=== PATIENT | male | born 1950 | race Caucasian/White ===

== ENCOUNTER → 2020-01-15 17:16 | Outpatient (BNVA) | payer OTHER, SELFPAY | PROVIDERS: PCP Internal Medicine; Visit Provider Urology | DX: R97.20 Elevated prostate specific antigen [PSA] (principal); N40.0 Benign prostatic hyperplasia without lower urinary tract symptoms; N39.9 Disorder of urinary system, unspecified; N40.1 Benign prostatic hyperplasia with lower urinary tract symptoms | CPT/HCPCS: 81001 ==

== ENCOUNTER → 2020-07-20 08:17 | Outpatient (BNVA) | payer OTHER, SELFPAY | PROVIDERS: Visit Provider Urology | DX: R97.20 Elevated prostate specific antigen [PSA] (principal); N40.1 Benign prostatic hyperplasia with lower urinary tract symptoms | CPT/HCPCS: 81001; 84153 ==

== ENCOUNTER 2020-12-02 06:55 | Outpatient (CLI) | payer OTHER, SELFPAY ==
--- NOTE | 2020-12-02 07:00 | USCV_ITS ---
Denis Pennington Age: 70 Gender: M : 1950 Exam Date: 12/02/2020 06:21 Ordering Phys: Karlee Ashraf MD Technologist: Nash Barraza Exam Location: [facility] [place] Indication: PAIN REDNESS TO FEET Risk Factors: Previous Vascular Surgery: RIGHT LEFT BP: 106.0 / 62.00 BP: 111.0/ 65.00 0 0 Waveform Velocity (cm/s) Velocity (cm/s) Waveform Triphasic 112.1 Iliac Prox 131.0 Triphasic Triphasic 107.1 Iliac Mid 130.3 Triphasic Triphasic Iliac Distal Triphasic 87.2 75.2 Triphasic 127.4 AGRICULTURAL EQUIPMENT TEST ENGINEER 96.3 Triphasic Triphasic 80.8 SFA Prox 68.4 Triphasic Triphasic 78.3 SFA Mid 61.4 Triphasic Triphasic 67.7 SFA Dist 147.2 Triphasic Triphasic 53.9 POP 89.3 Triphasic Triphasic 108.1 HAZARDOUS MATERIALS HANDLER 110.4 Triphasic Triphasic 57.5 DPA 59.2 Triphasic 1.4 DORIE 1.0 FINDINGS Normal resting ABIs bilaterally Normal arterial Doppler waveforms. CONCLUSIONS No significant arterial obstruction, based on the above findings Dr Clifton Ayers MD [facility] (Electronically Signed) Final Date: 02 December 2020 12:42 S
== END 2020-12-02 06:56 | disposition home or self-care (01) ==
LOC: US 06:56
PROVIDERS: PCP Family Medicine; Visit Provider Family Medicine
DX: M79.672 Pain in left foot (principal); M79.671 Pain in right foot
CPT/HCPCS: 93925

== ENCOUNTER 2020-12-23 11:52 | Outpatient (RCR) | payer OTHER, SELFPAY | END 2021-01-19 23:59 | disposition home or self-care (01) | LOC: PULRHB 11:52 | PROVIDERS: PCP Family Medicine; Visit Provider Family Medicine | DX: J44.9 Chronic obstructive pulmonary disease, unspecified (principal) | CPT/HCPCS: 94618; G0424 ==

== ENCOUNTER → 2021-01-18 08:11 | Outpatient (BNVA) | payer OTHER, SELFPAY | PROVIDERS: PCP Family Medicine; Visit Provider Urology | DX: R97.20 Elevated prostate specific antigen [PSA] (principal); N40.1 Benign prostatic hyperplasia with lower urinary tract symptoms | CPT/HCPCS: 81003; 84153 ==

== ENCOUNTER 2021-01-20 06:00 | Outpatient (RCR) | payer OTHER, SELFPAY | END 2021-02-18 23:59 | disposition home or self-care (01) | LOC: PULRHB 06:00 | PROVIDERS: PCP Family Medicine; Visit Provider Family Medicine | DX: J44.9 Chronic obstructive pulmonary disease, unspecified (principal) | CPT/HCPCS: G0424 ==

== ENCOUNTER 2021-02-19 06:00 | Outpatient (RCR) | payer OTHER, SELFPAY | END 2021-03-21 23:59 | disposition home or self-care (01) | LOC: PULRHB 06:00 | PROVIDERS: PCP Family Medicine; Visit Provider Family Medicine | DX: J44.9 Chronic obstructive pulmonary disease, unspecified (principal) | CPT/HCPCS: G0424 ==

== ENCOUNTER 2021-03-04 06:00 | Outpatient (RCR) | payer OTHER, SELFPAY | END 2021-03-21 23:59 | disposition home or self-care (01) | LOC: SPT 06:00 | PROVIDERS: PCP Family Medicine; Referring Provider Family Medicine; Visit Provider Family Medicine | DX: M62.81 Muscle weakness (generalized) (principal) | CPT/HCPCS: 97110; 97161 ==

== ENCOUNTER 2021-03-22 06:00 | Outpatient (RCR) | payer OTHER, SELFPAY | END 2021-04-20 23:59 | disposition home or self-care (01) | LOC: PULRHB 06:00 | PROVIDERS: PCP Family Medicine; Visit Provider Family Medicine | DX: J44.9 Chronic obstructive pulmonary disease, unspecified (principal) | CPT/HCPCS: G0424 ==

== ENCOUNTER 2021-03-22 06:00 | Outpatient (RCR) | payer OTHER, SELFPAY | END 2021-04-20 23:59 | disposition home or self-care (01) | LOC: SPT 06:00 | PROVIDERS: PCP Family Medicine; Referring Provider Family Medicine; Visit Provider Family Medicine | DX: M62.81 Muscle weakness (generalized) (principal) | CPT/HCPCS: 97110 ==

== ENCOUNTER 2021-04-04 09:18 | Emergency (ER) | payer OTHER, SELFPAY ==
[2021-04-04 09:33] VITALS: BP 128/87; PULSE 88; RESP 18; TEMP 36.5; O2SAT 89; BMI 29.0
[2021-04-04 09:37] VITALS: BP 128/87; PULSE 94; RESP 18; O2SAT 96
--- NOTE | 2021-04-04 09:41 | XR_ITS ---
WS: [id number] Exam: XR hip LT 2-3V wo/w pel* [id number] Date/Time of Exam: 04/04/2021 9:45 AM Reason For Exam: trauma L hip pain No acute fracture or dislocation. Mild DJD of the joint compartment. Normal soft tissues. XR/XR hip LT 2-3V wo/w pel* [id number] IMPRESSION: 1. Mild DJD. No fracture or dislocation.
--- NOTE | 2021-04-04 10:17 | CT_ITS ---
WS: [id number] NONCONTRAST CT LEFT HIP TECHNIQUE: Noncontrast CT left hip with coronal and sagittal reformatted images. CLINICAL INFORMATION: pain, trauma COMPARISON: None. DLP: 1139.[address] scans at [facility] use at least one of these dose optimization techniques: automat ed exposure control; mA and/or kV adjustment per patient size (includes targeted exams where dose is matched to clinical indication); or iterative reconstruction. FINDINGS: Normal anatomic alignment. No acute fractures. Mild/moderate degenerative arthritis left hip with margarita nt space narrowing. Normal greater and lesser trochanter. Normal pubic rami. Normal acetabulum. Vascu lar calcification. Sigmoid diverticulosis. Fat-containing left inguinal hernia. CT/CT hip LT wo con* [id number] IMPRESSION: 1. Mild to moderate degenerative arthritis left hip with joint space narrowing . 2. No acute fracture or dislocation. 3. Normal visualized left pubic rami.
[2021-04-04] MEDS: ketorolac 30 mg/mL INJ IM (10:25)
--- NOTE | 2021-04-04 10:54 | ED_ITS ---
HPI - Fall General: Chief Complaint: Fall Stated Complaint: Fell, left side hip pain Time Seen by Provider: 04/04/21 09:36 History of Present Illness: HPI Narrative: 70-year-old male presents emergency room with complaint of left hip pain. Yesterday was walking outside he stumbled a hole fell he complained of pain in his left hip since then. He has been ambulatory since then he denies any other pain no pain in the knee or ankle he did not hit his arms did not break his fall with his hands he did not strike his head is no loss conscious he denies any other in use. complaint: fall Onset (ago): day(s) Fall from: standing Fall witnessed: no Place fall occurred: home Loss of consciousness: None Prolonged down time: no Symptoms prior to fall: none Context: tripped/slipped Location of injury: other (Left hip pain) Severity: moderate Quality: aching Associated symptoms-after fall: Denies abdominal pain, chest pain, confusion, difficulty walking, headache(s), hematuria, lightheadedness, neck pain, numbness, short of breath or weakness Review of Systems Const: Denies: fever(s), chills, body aches, change in appetite, fatigue or malaise ENMT: Denies: throat pain, ear or mastoid pain, nasal discharge or nasal congestion Card: Denies: chest pain or lightheadedness Resp: Denies: dyspnea, productive cough or non-productive cough GI: Denies: abdominal pain : Denies: hematuria Musc: Denies: neck pain Skin/Breast: Denies: rash or pruritus Neuro: Denies: headache(s), difficulty walking or confusion [facility] ED PFSH: Medical History BPH loc w urin obs/LUTS Elevated PSA H/O fracture of ankle Hidradenitis suppurativa Surgical History History of mandibular surgery History of surgery on arm Hx of hernia repair S/P appendectomy Family History Father , 77 CAD (coronary artery disease) Mother , 82 Cancer bREAST Social History (Reviewed 03/22/21 @ 10:57 by JOSE GUADALUPE Simmons Smoking and tobacco status: current every day smoker Alcohol intake: never Marital status: / Current occupational status: retired History of recent travel: No Physical Exam Const: COMMON NORMALS: no acute distress GENERAL APPEARANCE: cooperative and comfortable ORIENTATION/CONSCIOUSNESS: Yes awake, Yes oriented to person, Yes oriented to place and Yes oriented to time HENMT: COMMON NORMALS: normocephalic, atraumatic, hearing grossly normal bilaterally and external ears normal HEAD & SCALP: normocephalic and atraumatic EXTERNAL EAR: Yes external ears normal Neck/C-Spine: COMMON NORMALS: full ROM, no lymphadenopathy, supple and no JVD Resp: COMMON NORMALS: normal respiratory effort, No retractions, No use of accessory muscles and clear to auscultation bilaterally AUSCULTATION: clear to auscultation bilaterally Cardio: COMMON NORMALS: no JVD, regular rate, regular rhythm and No murmurs present (Cardio) RATE: regular rate RHYTHM: regular rhythm GI: COMMON NORMALS: Soft to palpation and No hepatosplenomegaly present AUSCULTATION: Yes normoactive bowel sounds PALPATION: Yes Soft to palpation, No Tenderness to palpation present (GI), No Guarding due to palpation present (GI) and Yes No hepatosplenomegaly present Extremity: COMMON NORMALS: normal to inspection, capillary refill normal, no clubbing, cyanosis or edema, no calf tenderness and no pedal edema Neuro: SENSORIUM/ORIENTATION: Yes oriented to person, Yes oriented to place and Yes oriented to time Skin: COMMON NORMALS: no rashes or lesions noted GENERAL SKIN EXAM: no rashes or lesions noted Course Vital Signs: Vital signs: Vital Signs Temperature 97.7 F 04/04/21 09:33 Pulse Rate 79 04/04/21 12:23 Respiratory Rate 12 04/04/21 12:23 Blood Pressure 125/83 04/04/21 12:23 Pulse Oximetry 95 04/04/21 12:23 MDM - Fall MDM Narrative: Medical decision making narrative: No fracture noted on imaging. [place] discharge home use Tylenol or Profen as needed return if is further problems Discharge Plan Discharge Patient Disposition: Home Clinical Impression: Fall, Acute pain of left hip Condition: Stable Prescriptions: No Action Lamisil (Aerosol) 1 % aerosol,spray 1 spray topical DAILY Qty: 125 RF: 3 (DME) Custom Molded Accommodative Orthotics* See Rx Instructions .Route .MEDSUPPLY Qty: 1 RF: 0 saw palmetto 450 mg capsule 450 mg PO DAILY RF: 0 aspirin [Aspir-Low] 81 mg tablet,delayed release (DR/EC) 81 mg PO DAILY RF: 0 cholecalciferol (vitamin D3) 4,000 unit capsule 2,000 unit PO DAILY RF: 0 lisinopril-hydrochlorothiazide 20-12.5 mg tablet 1 tab PO DAILY RF: 0 tamsulosin 0.4 mg capsule 0.4 mg PO DAILY Qty: 90 RF: 3 Discharge Orders: Discharge ED (Routine); Ordered 04/04/21 Ordered By: Alberto Richard Referrals: Karlee Ashraf MD [Primary Care Provider] - Patient Instructions: Opioid Safety Coding Level of Care Code ED Field Service Supervisor for Chg Fwd Exam Comprehensive
[2021-04-04 12:23] VITALS: BP 125/83; PULSE 79; RESP 12; O2SAT 95
== END 2021-04-04 12:24 | disposition home or self-care (01) ==
PROVIDERS: Emergency Provider Family Medicine; PCP Family Medicine
DX: M25.552 Pain in left hip (principal); Z79.82 Long term (current) use of aspirin; F17.210 Nicotine dependence, cigarettes, uncomplicated
CPT/HCPCS: 73502; 73700; 96372; 99283; J1885

== ENCOUNTER 2021-04-21 06:00 | Outpatient (RCR) | payer OTHER, SELFPAY | END 2021-05-21 23:59 | disposition home or self-care (01) | LOC: SPT 06:00 | PROVIDERS: PCP Family Medicine; Referring Provider Family Medicine; Visit Provider Family Medicine | DX: M62.81 Muscle weakness (generalized) (principal) | CPT/HCPCS: 97110; 97164 ==

== ENCOUNTER → 2021-07-21 09:01 | Outpatient (BNVA) | payer OTHER, SELFPAY | PROVIDERS: PCP Family Medicine; Visit Provider Urology | DX: N40.1 Benign prostatic hyperplasia with lower urinary tract symptoms (principal); R97.20 Elevated prostate specific antigen [PSA] | CPT/HCPCS: 81003; 84153 ==

== ENCOUNTER 2022-01-04 12:15 | Emergency (ER) | payer OTHER, MEDICARE, SELFPAY ==
[2022-01-04 12:25] VITALS: BP 142/73; PULSE 83; RESP 18; TEMP 36.8; O2SAT 91; BMI 29.8
--- NOTE | 2022-01-04 12:32 | ECG_ITS ---
[facility] Test Date: 2022-01-04 Pat Name: Denis Pennington Department: Room: Gender: Male Director Global Sales: : 1950 Requested By: Triston Bravo Order Number: [id number] Reading MD: Donnie Glover M.D. Measurements Intervals [place] Rate: 72 P: 65 ID: [id number] QRS: 90 QRSD: 89 T: 84 QT: 369 QTc: 406 Interpretive Statements SINUS RHYTHM WITH MARKED SINUS ARRHYTHMIA POSSIBLE RIGHT VENTRICULAR CONDUCTION DELAY [RSR (QR) IN V1/V2] NONSPECIFIC T-WAVE ABNORMALITY Compared to ECG 01/10/2018 10:31:46 Possible ischemia no longer present T-wave abnormality still present Electronically Signed On 01-04-2022 18:42:37 CDT by Donnie Glover M.D. [email or web address]
--- NOTE | 2022-01-04 12:40 | ED_ITS ---
HPI - General Adult General: Chief complaint: Shortness of Breath/Dyspnea Stated complaint: SOB, low ox Time Seen by Provider: 01/04/22 12:32 History of Present Illness: Patient is a 71-year-old male with history of COPD on 2.5L oxygen as needed, BPH, hyperlipidemia who presents the emergency room for evaluation of increased oxygen requirements and wheezing x3 days. Patient tells me that he has been using intermittently his albuterol inhaler. Patient tells me that he has had a mild cough for the last few days and I think I am coming down with a viral infection. Patient denies any chest pain, nausea/vomiting, fever/chills, persistent productive cough, diarrhea, melena hematochezia. Patient denies any muscle ache, malaise, generalized weakness. Patient tells me that he has been inconsistent with his use of albuterol inhaler since he does not remember where he loses it. Patient went to see at the [place] [facility] today was noted to satting at 91 to 92% on room air was told to come to the emergency room for evaluation of possible pneumonia and worsening COPD exacerbation. Onset: 3 days ago Duration:3 days Location:home Severity:moderate Associated symptoms: Reports dyspnea; Deny chest pain, nausea, rash, palpitations or vomiting Review of Systems Const: Denies: fever(s) or chills Eyes: Denies: change in vision ENMT: Denies: mouth pain Card: Denies: chest pain or palpitations Resp: Reports: dyspnea and other (+wheezing); Denies: non-productive cough GI: Denies: abdominal pain, nausea, vomiting or diarrhea : Denies: dysuria Musc: Denies: extremity pain Skin/Breast: Denies: rash or new lesions Neuro: Denies: weakness in extremities Psych: Reports: other (Normal mood) Sergei/Lymph: Denies: easy bruising PFSH ED PFSH: Medical History BPH loc w urin obs/LUTS Elevated PSA H/O fracture of ankle Hidradenitis suppurativa Surgical History History of mandibular surgery History of surgery on arm Hx of hernia repair S/P appendectomy Family History Father , 77 CAD (coronary artery disease) Mother , 82 Cancer bREAST Social History Smoking and tobacco status: current every day smoker Alcohol intake: never Marital status: / Current occupational status: retired History of recent travel: No Physical Exam Const: COMMON NORMALS: alert HENMT: COMMON NORMALS: atraumatic HEAD & SCALP: atraumatic MOUTH: moist mucous membranes not abnormal Eye: COMMON NORMALS: EOMs intact bilaterally and conjunctivae normal CONJUNCTIVA: Yes conjunctivae normal Neck/C-Spine: COMMON NORMALS: full ROM and supple Resp: COMMON NORMALS: normal respiratory effort OTHER: +b/l expiratory wheezing, no increased work of breathing Cardio: COMMON NORMALS: regular rate RATE: regular rate GI: COMMON NORMALS: Soft to palpation and non-tender PALPATION: Yes Soft to palpation Extremity: COMMON NORMALS: full ROM Neuro: SENSORIUM/ORIENTATION: Yes alert MOTOR EXAM: No Abnormal motor strength present and Other motor observations present (no focal motor deficits) Psych: COMMON NORMALS: speech normal SPEECH: Yes normal speech MOOD & AFFECT: Yes euthymic mood Course Vital Signs: Vital signs: Vital Signs Temperature 98.0 F 01/04/22 16:45 Pulse Rate 73 01/04/22 16:45 Respiratory Rate 16 01/04/22 16:45 Blood Pressure 153/79 01/04/22 16:45 Pulse Oximetry 95 01/04/22 17:11 [facility] - General Adult Medical Decision Making 71-year-old male with history of COPD on 2.5L oxygen as needed presenting to the emergency room with wheezing and dyspnea x3 days in setting of cough. Patient no longer coughs currently. On exam, patient is noted to have O2 sat of 91 to 92% on room with moderate expiratory wheezes. Patient has no signs of increased work of breathing. Patient is placed on 2 L of oxygen with improvement in O2 sat to 94 to 95%. Patient received DuoNeb and steroids in the emergency room with significant improvement in wheezing symptoms. Patient now satting at 95% at 2L which is his baseline. Lab work-up including troponin x2 with delta <5 and EKG within normal limit. X-ray chest not showing signs of focal pneumonia. Dimer within normal limit. BNP within normal limit. Suspect the patient's symptoms are related to COPD exacerbation at this time. I have offered patient admission for further treatment versus discharge for close outpatient follow-up. Patient elects to go home today with close patient follow-up. Given patient strict return precaution for any signs of worsening wheezing, dyspnea, fever/chills, any new concerning complaints. Doubt ACS/PE or other emergent causes of dyspnea. No suspicion for aortic dissection given no widened mediastinum, 2+ upper extremity pulses, or tearing pain. No suspicion for PE given no pleuritic chest pain, recent immobilization or surgery hemoptysis, or other VTE risk factors. EKG is non-ischemic. XR normal. I have given patient follow up with our patient case manager to be seen by our outpatient PCP for further evaluation of symptoms. Patient aware of a call from our patient case manager to schedule for appointment(s) and verbalizes understanding of the importance of following up. I have given patient strict return precaution for any drops in the pulse ox to less than 90% while on 2L at home. Rx: albuterol PRN wheezing, prednisone 50mg x 5 days for COPD exacerbation Disposition: Discharge. Patient counseled regarding diagnostic impression, treatment plan. Patient given ED strict return precautions to return for continuation, worsening, or development of new symptoms. Instructed to f/u w/ PCP regarding symptoms today. Patient verbalized understanding. Lab Data : 01/04/22 12:55 01/04/22 12:55 Radiology Impressions Chest X-Ray 01/04/22 15:43 IMPRESSION: No acute findings. Laboratory Results WBC 9.0 10^3/uL (4.0-10.0) 01/04/22 12:55 RBC 5.54 10^6/uL (4.1-5.3) H 01/04/22 12:55 Hgb 16.5 g/dL (11.7-16.6) 01/04/22 12:55 Hct 52.5 % (42.0-52.0) H 01/04/22 12:55 MCV 94.8 fl (80-94) H 01/04/22 12:55 MCH 29.8 pg (28.0-34.0) 01/04/22 12:55 MCHC 31.4 g/dL (30.0-36.0) 01/04/22 12:55 RDW 13.6 % (12.1-15.1) 01/04/22 12:55 Plt Count 263 10^3/cmm (130-400) 01/04/22 12:55 MPV 10.6 fL (7.4-10.4) H 01/04/22 12:55 Neut % (Auto) 68.8 % 01/04/22 12:55 Lymph % (Auto) 18.8 % 01/04/22 12:55 [place] % (Auto) 9.3 % 01/04/22 12:55 Eos % (Auto) 2.1 % 01/04/22 12:55 Baso % (Auto) 0.8 % 01/04/22 12:55 Neut # (Auto) 6.20 10^3/uL (1.8-7.7) 01/04/22 12:55 Lymph # (Auto) 1.7 10^3/uL (0.8-4.8) 01/04/22 12:55 [place] # (Auto) 0.8 10^3/uL (0.2-0.9) 01/04/22 12:55 Eos # (Auto) 0.2 10^3/uL (0.0-0.8) 01/04/22 12:55 Baso # (Auto) 0.1 10^3/uL (0.0-0.1) 01/04/22 12:55 Nucleated RBC % (auto) 0 % 01/04/22 12: Nucleated RBCs # 0.0 /100WBC 01/04/22 12:55 D-Dimer 0.55 ug/mIFEU (0-0.59) 01/04/22 12:55 Sodium 138 mmol/L (136-145) 01/04/22 12:55 Potassium 4.4 mmol/L (3.5-5.1) 01/04/22 12:55 Chloride 96 mmol/L (98-107) L 01/04/22 12:55 Carbon Dioxide 34 mmol/L (22-29) H 01/04/22 12:55 Anion Gap 12.4 (5-19) 01/04/22 12:55 BUN 19 mg/dL (8-23) 01/04/22 12:55 Creatinine 0.8 mg/dL (0.7-1.2) 01/04/22 12:55 GFR Calculation Not Reportable 01/04/22 12:55 Glucose 156 mg/dL (65-115) H 01/04/22 12:55 Calculated Osmolality 291 mOsm/kg (285-295) 01/04/22 12:55 Calcium 9.7 mg/dL (8.5-10.5) 01/04/22 12:55 Total Bilirubin 0.4 mg/dL (0.15-1.2) 01/04/22 12:55 AST 18 U/L (0-40) 01/04/22 12:55 ALT 20 U/L (0-41) 01/04/22 12:55 Alkaline Phosphatase 70 IU/L (40-130) 01/04/22 12:55 Troponin T Baseline 25 ng/L (0-15) H 01/04/22 12:55 Troponin T 120 Minute 25.98 ng/L (0-15) H 01/04/22 14:43 Delta Troponin T 0.98 ABS# (0-10) 01/04/22 14:43 NT-Pro-B Natriuret Pep 77 pg/mL (0-125) 01/04/22 12:55 Total Protein 6.5 g/dL (6.6-8.7) L 01/04/22 12:55 Albumin 4.2 g/dL (3.5-5.2) 01/04/22 12:55 Globulin 2.3 g/dL (1.3-4.6) 01/04/22 12:55 Lipase 50 U/L (13-60) 01/04/22 12:55 Nasal Influ A H1 2009 PCR Not detected (NOT DETECT) 01/04/22 12:55 Coronavirus 229E (PCR) Not detected (NOT DETECT) 01/04/22 12:55 Influenza A (H1) PCR Not detected (NOT DETECT) 01/04/22 12:55 Influenza A (H3) PCR Not detected (NOT DETECT) 01/04/22 12:55 Influenza Type A Ag Cancelled 01/04/22 12:55 Influenza Type A (PCR) Not detected (NOT DETECT) 01/04/22 12:55 Influenza Type B Ag Cancelled 01/04/22 12:55 Influenza Type B (PCR) Not detected (NOT DETECT) 01/04/22 12:55 SARS-CoV-2 (PCR) Not detected (NOT DETECT) 01/04/22 12:55 Imaging Data Other Imaging: Radiologist's impression: Launch?Image PrintToPeerPrairie [facility] [address] [place] [address] XRay Report Signed Patient: Denis Pennington Unit #: [id number] : 1950 Age/Sex: 71 / M ADM Date: 01/04/22 Loc: ER Room/Bed: Attending Dr: Ordering Provider/Ordering MD: Triston Bravo MD Date of Service: 01/04/22 Procedure(s): XR chest 2V* [id number] Accession Number(s): [id number] Report Number: [id number] PROCEDURE INFORMATION: Exam: XR Chest Exam date and time: 01/04/2022 3:43 PM Age: 71 years old Clinical indication: Cough TECHNIQUE: Imaging protocol: XR of the chest. Views: 2 views. COMPARISON: CR Chest 1 [place] [id number] 01/10/2018 10:22 AM FINDINGS: Lungs: Calcified granulomas in the right lung. No consolidation. Pleural spaces: No pleural effusion. No pneumothorax. Heart/Mediastinum: No cardiomegaly. Bones/joints: Visualized osseous structures are intact. XR/XR chest 2V* [id number] IMPRESSION: No acute findings. ? Dictated By: Andrae Gary DO Signed By: Andrae Gary DO Signed Date/Time: 01/04/22 1700 DD/ 1543 Discharge Plan Discharge Patient Disposition: Home Clinical Impression: COPD exacerbation, Wheezing Condition: Stable Prescriptions: New acetaminophen 500 mg tablet 500 mg PO Q6H PRN (Reason: pain) 5 Days Qty: 20 0RF albuterol sulfate 90 mcg/actuation HFA aerosol inhaler 2 inh inhalation Q4H PRN (Reason: shortness of breath or wheezing) 5 Days Qty: 6.7 0RF prednisone 50 mg tablet 50 mg PO DAILY 5 Days 0RF No Action (DME) Custom Molded Accommodative Orthotics* See Rx Instructions .Route .MEDSUPPLY Qty: 1 0RF Rx Instructions: As directed J P & O (DME) Custom Molded Orthotics See Rx Instructions .Route .MEDSUPPLY Qty: 1 0RF Rx Instructions: As directed by GE&O lisinopril-hydrochlorothiazide 20-12.5 mg tablet 1 tab PO QAM 0RF (DME) Custom Molded Accommodative Orthotics See Rx Instructions .Route .MEDSUPPLY Qty: 1 0RF Rx Instructions: As directed J P & O artificial tears solution Drops 1 drp OPHTHALMIC (EYE) BID PRN (Reason: Dry Eye(S)) 0RF Aspir-81 81 mg Tablet,Delayed Release (Dr/Ec) 81 mg PO QAM 0RF Tylenol Ex Str Rapid Release 500 mg Tablet 500 mg PO QID PRN (Reason: Pain) 0RF Flonase 50 mcg/actuation [place],Suspension 1 spray INTRANASAL DAILY 0RF Rx Instructions: administer into each nostril Claritin 10 mg Tablet 10 mg PO DAILY PRN (Reason: Allergy Symptoms) 0RF chlorhexidine gluconate 4 % Packet See Rx Instructions .ROUTE .COMPLEX 0RF Rx Instructions: APPLY topically DAILY DIRECTED TO REDUCE SKIN BACTERIA Vitamin D3 50 mcg (2,000 unit) Tablet 50 mcg PO QAM 0RF ipratropium-albuterol 20-100 mcg/actuation Mist 1 puff INHALATION QID PRN (Reason: Shortness Of Breath) 0RF Rx Instructions: space evenly during waking hours mometasone 100 mcg/actuation Hfa Aerosol Inhaler 1 puff INHALATION BID PRN (Reason: UNKNOWN) 0RF Prostastream 2 cap PO QAM 0RF tamsulosin 0.4 mg capsule 0.4 mg PO BEDTIME 0RF Discharge Orders: Discharge ED (Routine); Ordered 01/04/22 Ordered By: Triston Bravo Referrals: Karlee Ashraf MD [Primary Care Provider] - Discharge Diet: Advance as tolerated Discharge Activity: Increase activity as tolerated Patient Instructions: Emphysema (ED) Activity Restrictions/Additional Instructions: Come back to the emergency room if your symptoms worsen, have any shortness of breath, fever/chills, dehydration, inability tolerate food or drinks, any difficulty breathing, or any new or concerning complaints. Coding Level of Care Code ED [place] for Rodog Fwd Exam Comprehensive
[2022-01-04] MEDS: ipratropium-albuterol 3 mL Neb INHALATION ×3 (12:50→12:53)
[2022-01-04 12:53] VITALS: PULSE 84; RESP 16; O2SAT 94
[2022-01-04 13:19] VITALS: BP 156/81; PULSE 80; RESP 20; TEMP 36.8; O2SAT 92
[2022-01-04 13:40] LABS: Basophils # 0.1 10^3/uL (0.0-0.1); Basophils % 0.8 %; Eosinophils # 0.2 10^3/uL (0.0-0.8); Eosinophils % 2.1 %; Hematocrit 52.5 % (42.0-52.0); Hemoglobin 16.5 g/dL (11.7-16.6); Lymphocytes # 1.7 10^3/uL (0.8-4.8); Lymphocytes % 18.8 %; Mean Corpuscular HGB Conc 31.4 g/dL (30.0-36.0); Mean Corpuscular Hemoglobin 29.8 pg (28.0-34.0); Mean Corpuscular Volume 94.8 fl (80-94); Mean Platelet Volume 10.6 fL (7.4-10.4); Monocytes # 0.8 10^3/uL (0.2-0.9); Monocytes % 9.3 %; Neutrophils % 68.8 %; Nucleated Red Blood Cells % 0 %; Platelet Count 263 10^3/cmm (130-400); Red Blood Count 5.54 10^6/uL (4.1-5.3); Red Cell Distribution Width 13.6 % (12.1-15.1)
[2022-01-04 14:07] LABS: Alanine Aminotransferase 20 U/L (0-41); Albumin Level 4.2 g/dL (3.5-5.2); Alkaline Phosphatase 70 IU/L (40-130); Anion Gap 12.4 (5-19); Aspartate Amino Transferase 18 U/L (0-40); Blood Urea Nitrogen 19 mg/dL (8-23); Calcium 9.7 mg/dL (8.5-10.5); Carbon Dioxide 34 mmol/L (22-29); Chloride 96 mmol/L (98-107); Globulin 2.3 g/dL (1.3-4.6); Glucose 156 mg/dL (65-115); Lipase 50 U/L (13-60); NT Pro B Type Natriuretic Pept 77 pg/mL (0-125); Osmolality Calculated 291 mOsm/kg (285-295); Potassium 4.4 mmol/L (3.5-5.1); Sodium 138 mmol/L (136-145); Total Bilirubin 0.4 mg/dL (0.15-1.2); Total Protein 6.5 g/dL (6.6-8.7); Troponin(5th) Baseline 25 ng/L (0-15)
[2022-01-04 15:18] LABS: Troponin 5 2HR 25.98 ng/L (0-15)
[2022-01-04 15:19] LABS: Troponin 5 2HR Delta 0.98 ABS# (0-10)
--- NOTE | 2022-01-04 15:25 | PC.PHAR ---
PT STATES HE TAKES CARE OF HIS OWN MEDICATIONS-PT STATES HE HASNT TAKEN GLIPIZIDE 5MG BID FOR 3 MONTHS [facility]ICATION [facility]
--- NOTE | 2022-01-04 15:43 | XRR_ITS ---
PROCEDURE INFORMATION: Exam: XR Chest Exam date and time: 01/04/2022 3:43 PM Age: 71 years old Clinical indication: Cough TECHNIQUE: Imaging protocol: XR of the chest. Views: 2 views. COMPARISON: CR Chest 1 [place] [id number] 01/10/2018 10:22 AM FINDINGS: Lungs: Calcified granulomas in the right lung. No consolidation. Pleural spaces: No pleural effusion. No pneumothorax. Heart/Mediastinum: No cardiomegaly. Bones/joints: Visualized osseous structures are intact. XR/XR chest 2V* [id number] IMPRESSION: No acute findings.
[2022-01-04 15:59] LABS: Adenovirus Not Detected (NOT DETECT); Chlamydia Pneumoniae Not Detected (NOT DETECT); Coronavirus 229E,HKU1,NL63,OC4 Not Detected (NOT DETECT); Human Metapneumovirus Not Detected (NOT DETECT); Human Rhinovirus/Enterovirus Not Detected (NOT DETECT); Influenza A Not Detected (NOT DETECT); Influenza A H1 Not Detected (NOT DETECT); Influenza A H1-2009 Not Detected (NOT DETECT); Influenza A H3 Not Detected (NOT DETECT); Influenza B Not Detected (NOT DETECT); Mycoplasma Pneumoniae Not Detected (NOT DETECT); Parainfluenza Virus Type 1 Not Detected (NOT DETECT); Parainfluenza Virus Type 2 Not Detected (NOT DETECT); Parainfluenza Virus Type 3 Not Detected (NOT DETECT); Parainfluenza Virus Type 4 Not Detected (NOT DETECT); Respiratory Syncytial Virus A Not Detected (NOT DETECT); Respiratory Syncytial Virus B Not Detected (NOT DETECT); SARS-COV-2 Not Detected (NOT DETECT)
[2022-01-04 16:08] LABS: Influenza A Not Detected (NOT DETECT); Influenza A H1 Not Detected (NOT DETECT); Influenza A H1-2009 Not Detected (NOT DETECT); Influenza A H3 Not Detected (NOT DETECT); Influenza B Not Detected (NOT DETECT); Results from Genmark
[2022-01-04 16:34] LABS: D Dimer 0.55 ug/mIFEU (0-0.59)
[2022-01-04 16:45] VITALS: BP 153/79; PULSE 73; RESP 16; TEMP 36.7; O2SAT 90
[2022-01-04 17:03] VITALS: O2SAT 95
[2022-01-04 17:11] VITALS: O2SAT 95
--- NOTE | 2022-01-04 18:32 | ECG_ITS ---
[facility] Test Date: 2022-01-04 Pat Name: Denis Pennington Department: Room: Gender: Male Director Consumer Affairs: : 1950 Requested By: Triston Bravo Order Number: [id number] Laurence MD: Donnie Glover M.D. Measurements Intervals [place] Rate: 57 P: 59 MD: 186 QRS: 72 QRSD: 82 T: 81 QT: 354 QTc: 346 Interpretive Statements SINUS BRADYCARDIA WITH OCCASIONAL SUPRAVENTRICULAR PREMATURE COMPLEXES MODERATE T-WAVE ABNORMALITY, CONSIDER LATERAL ISCHEMIA [-0.1+ mV T-WAVE IN I/aVL/V5/V6] MODERATE T-WAVE ABNORMALITY, CONSIDER INFERIOR ISCHEMIA [-0.1+ mV T-WAVE IN II/aVF] Compared to ECG 01/04/2022 12:04:25 Possible ischemia now present Sinus rhythm no longer present Sinus arrhythmia no longer present T-wave abnormality still present Electronically Signed On 01-04-2022 18:51:43 CDT by Donnie Glover M.D. [id number]
--- NOTE | 2022-01-05 12:37 | DCPLANNER ---
care process manager had message to speak with patient about scheduling a follow up appointment with primary care physician. care process manager spoke with patient, he stated that he would schedule an appointment if he needed one.
== END 2022-01-04 17:10 | disposition home or self-care (01) ==
PROVIDERS: Emergency Provider Emergency Medicine; PCP Family Medicine
DX: J44.1 Chronic obstructive pulmonary disease with (acute) exacerbation (principal); Z79.82 Long term (current) use of aspirin; F17.210 Nicotine dependence, cigarettes, uncomplicated; Z20.822 Contact with and (suspected) exposure to COVID-19
CPT/HCPCS: 36415; 71046; 80053; 83690; 83880; 84484; 85025; 85378; 87631; 87635; 93005; 94640; 96374; 99284; J2930

== ENCOUNTER 2022-04-18 09:24 | Outpatient (CLI) | payer OTHER, MEDICARE, SELFPAY | END 2022-04-18 09:25 | disposition home or self-care (01) | LOC: LAB 09:26 | PROVIDERS: PCP Family Medicine; Visit Provider Urology | DX: R97.20 Elevated prostate specific antigen [PSA] (principal); N40.1 Benign prostatic hyperplasia with lower urinary tract symptoms | CPT/HCPCS: 51798; 81003; 84153; 99213 ==

== ENCOUNTER 2022-10-18 12:34 | Outpatient (CLI) | payer OTHER, SELFPAY ==
[2022-10-18 13:25] LABS: Prostate Specific AG Urology 3.81 ng/mL (0-4)
== END 2022-10-18 12:35 | disposition home or self-care (01) ==
LOC: LAB 12:38
PROVIDERS: PCP Family Medicine; Visit Provider Urology
DX: R97.20 Elevated prostate specific antigen [PSA] (principal)
CPT/HCPCS: 84153

== ENCOUNTER → 2022-10-19 10:26 | Outpatient (BNVA) | payer OTHER, SELFPAY | PROVIDERS: PCP Family Medicine; Visit Provider Urology | DX: N40.1 Benign prostatic hyperplasia with lower urinary tract symptoms (principal); R97.20 Elevated prostate specific antigen [PSA] | CPT/HCPCS: 51798; 81003; 99213 ==

== ENCOUNTER → 2022-11-22 10:21 | Outpatient (BNVA) | payer OTHER, SELFPAY | PROVIDERS: PCP Family Medicine; Referring Provider Nurse Practitioner; Visit Provider Podiatrist Foot & Ankle Surgery | DX: M21.41 Flat foot [pes planus] (acquired), right foot (principal); M21.42 Flat foot [pes planus] (acquired), left foot; B35.3 Tinea pedis | CPT/HCPCS: 99213 ==

== ENCOUNTER 2022-12-07 20:00 | Emergency (ER) | payer OTHER, SELFPAY ==
[2022-12-07 20:01] VITALS: BP 129/71; PULSE 103; RESP 18; TEMP 37.2; O2SAT 96; BMI 28.2
--- NOTE | 2022-12-07 20:05 | W.ED.NAVMDI ---
HPI - Nausea/Vomiting/Diarrhea General: Chief complaint: Nausea/Vomiting/Diarrhea Stated complaint: VOMITING Time Seen by Provider: 12/07/22 20:05 History of Present Illness: 72-year-old gentleman presenting to the emergency department for chills with vomiting and abdominal discomfort. Reports being at his baseline health and was in [place] earlier today. When he came home he felt generally unwell and about 3:00 started having chills. He has had nonbilious nonbloody emesis. Intensity symptoms is moderate. Course has persisted. No other specific changes in health, exacerbating, or alleviating factors identified. Onset (ago): hour(s) Description of vomiting: watery Associated nausea: Yes Associated abdominal pain: Yes Location of pain: Diffuse Severity: moderate Quality: aching Exacerbating factors: none Relieving factors: none Associated symtoms: Reports malaise, nausea and other Review of Systems General: Reports: 10 or more systems reviewed and unremarkable except in HPI and below Const: Reports: malaise GI: Reports: nausea PFSH ED PFSH: Medical History BPH loc w urin obs/LUTS Elevated PSA H/O fracture of ankle Hidradenitis suppurativa Surgical History History of mandibular surgery History of surgery on arm Hx of hernia repair S/P appendectomy Family History Father , 77 CAD (coronary artery disease) Mother , 82 Cancer bREAST Social History Smoking and tobacco status: current every day smoker Alcohol intake: never Marital status: / Current occupational status: retired Physical Exam Const: COMMON NORMALS: alert GENERAL APPEARANCE: cooperative, well developed and ill appearing HENMT: COMMON NORMALS: normocephalic and atraumatic HEAD & SCALP: normocephalic and atraumatic THROAT: posterior oropharynx normal Eye: COMMON NORMALS: conjunctivae normal CONJUNCTIVA: Yes conjunctivae normal SCLERA: sclerae normal Neck/C-Spine: COMMON NORMALS: supple GENERAL: Yes trachea midline Resp: COMMON NORMALS: clear to auscultation bilaterally EFFORT & INSPECTION: Yes able to speak in complete sentences AUSCULTATION: clear to auscultation bilaterally Cardio: COMMON NORMALS: regular rate and regular rhythm RATE: regular rate RHYTHM: regular rhythm GI: COMMON NORMALS: Soft to palpation PALPATION: Yes Soft to palpation, Yes Tenderness to palpation present (GI), No Guarding due to palpation present (GI) and No Rigid due to palpation Extremity: GENERAL: Yes normal exam except as noted and No edema Neuro: COMMON NORMALS: moves all extremities SENSORIUM/ORIENTATION: Yes alert and No Orientation impaired Psych: COMMON NORMALS: mental status grossly normal and Normal thought process present THOUGHT PROCESS: Normal thought process present Course Vital Signs: Vital signs: Vital Signs Temperature 98.9 F 12/07/22 20:01 Pulse Rate 88 12/08/22 00:18 Respiratory Rate 16 12/08/22 00:18 Blood Pressure 120/65 12/08/22 00:18 Pulse Oximetry 99 12/08/22 00:18 Oxygen Delivery Me thod 12/07/22 22:28 MDM - Nausea/Vomiting/Diarrhea Medical Decision Making 72-year-old gentleman presenting with generalized illness. He endorses abdominal symptoms and chills. Mildly ill on appearance with tachycardia, no focal neurologic findings, no evidence of acute surgical abdomen. EKG with evidence of sinus rhythm at a moderate block, no STEMI. Labs with leukocytosis, normal hemoglobin and platelet count. Metabolic panel without significant derangement. Negative range 2-hour delta troponin. No UTI. Negative viral rapid testing.. Chest x-ray with no lobar consolidation or pneumothorax. CT demonstrates diverticulitis. Incidental findings discussed. Patient treated with antibiotics and antiemetic. He feels significantly improved upon assessment. I offered admission to the patient declined. The results of ED evaluation were discussed with the patient including prescriptions and/or symptomatic cares (if applicable) including appropriate and responsible use, followup plan, and return precautions. The patient verbalized understanding and felt safe for discharge. Medical Records I reviewed the patient's medical records. Lab Data I reviewed the patient's lab results. 12/07/22 20:11 12/07/22 20:11 Radiology Impressions Abdomen/Pelvis CT 12/07/22 20:36 IMPRESSION: 1. Mild acute diverticulitis in the mid sigmoid colon. 2. 2 mm left renal calculus. 3. 3 mm left pulmonary nodule. For patients at low risk (minimal or absent history of smoking and of other known risk factors), no routine follow-up is indicated. For patients at high risk (history of smoking or of other known risk factors), consider optional CT Chest at 12 months. (Reference: Syeda) References: Syeda Houston et al. Guidelines for Management of Incidental Pulmonary Nodules Detected on CT Images: From the Fleischner Society 2017. Radiology. 2017;284(1):228-243. COMMENTS: Consistent with the [place]'s Incidental Findings Committee white paper (J Am Jonathno Radiol 2018): Any incidental renal lesion less than 1 cm or classified as too small to characterize, or any incidental cystic renal lesion characterized as simple-appearing, is likely benign. No follow-up imaging is recommended for these lesions per consensus recommendations based on imaging criteria. Chest X-Ray 12/07/22 21:34 IMPRESSION: No acute findings. Laboratory Results WBC 14.7 10^3/uL (4.0-10.0) H 12/07/22 20:11 RBC 4.92 10^6/uL (4.1-5.3) 12/07/22 20:11 Hgb 14.7 g/dL (11.7-16.6) 12/07/22 20:11 Hct 47.0 % (42.0-52.0) 12/07/22 20:11 MCV 95.5 fl (80-94) H 12/07/22 20:11 MCH 29.9 pg (28.0-34.0) 12/07/22 20:11 MCHC 31.3 g/dL (30.0-36.0) 12/07/22 20:11 RDW 14.4 % (12.1-15.1) 12/07/22 20:11 Plt Count 252 10^3/cmm (130-400) 12/07/22 20:11 MPV 10.1 fL (7.4-10.4) 12/07/22 20:11 Neut % (Auto) 89.4 % 12/07/22 20:11 Lymph % (Auto) 3.7 % 12/07/22 20:11 [place] % (Auto) 5.1 % 12/07/22 20:11 Eos % (Auto) 0.8 % 12/07/22 20:11 Baso % (Auto) 0.5 % 12/07/22 20:11 Neut # (Auto) 13.11 10^3/uL (1.8-7.7) H 12/07/22 20:11 Lymph # (Auto) 0.5 10^3/uL (0.8-4.8) L 12/07/22 20:11 [place] # (Auto) 0.8 10^3/uL (0.2-0.9) 12/07/22 20:11 Eos # (Auto) 0.1 10^3/uL (0.0-0.8) 12/07/22 20:11 Baso # (Auto) 0.1 10^3/uL (0.0-0.1) 12/07/22 20:11 Nucleated RBC % (auto) 0 % 12/07/22 20:11 Nucleated RBCs # 0.0 /100WBC 12/07/22 20:11 Sodium 141 mmol/L (136-145) 12/07/22 20:11 Potassium 4.2 mmol/L (3.5-5.1) 12/07/22 20:11 Chloride 100 mmol/L (98-107) 12/07/22 20:11 Carbon Dioxide 34 mmol/L (22-29) H 12/07/22 20:11 Anion Gap 11.2 (5-19) 12/07/22 20:11 BUN 24 mg/dL (8-23) H 12/07/22 20:11 Creatinine 0.9 mg/dL (0.7-1.2) 12/07/22 20:11 GFR Calculation Not Reportable 12/07/22 20:11 Glucose 102 mg/dL (65-115) 12/07/22 20:11 Calculated Osmolality 296 mOsm/kg (285-295) H 12/07/22 20:11 Lactate 1.4 mmol/L (0.5-2.2) 12/07/22 20:51 Calcium 9.3 mg/dL (8.5-10.5) 12/07/22 20:11 Total Bilirubin 0.4 mg/dL (0.15-1.2) 12/07/22 20:11 AST 24 U/L (0-40) 12/07/22 20:11 ALT 22 U/L (0-41) 12/07/22 20:11 Alkaline Phosphatase 51 U/L (40-130) 12/07/22 20:11 Troponin T Baseline 30 ng/L (0-15) H 12/07/22 20:11 Troponin T 120 Minute 27.20 ng/L (0-15) H 12/07/22 22:17 Delta Troponin T -2.80 ABS# (0-10) L 12/07/22 22:17 Total Protein 6.3 g/dL (6.6-8.7) L 12/07/22 20:11 Albumin 3.9 g/dL (3.5-5.2) 12/07/22 20:11 Globulin 2.4 g/dL (1.3-4.6) 12/07/22 20:11 Urine Color Yellow (Yellow) 12/07/22 20:11 Urine Appearance Clear (CLEAR) 12/07/22 20:11 Urine pH 5 (5-7) 12/07/22 20:11 Ur Specific [place] 1.020 (1.005-1.030) 12/07/22 20:11 Urine Protein 2+ (Negative) H 12/07/22 20:11 Urine Glucose (UA) 4+ (Normal) H 12/07/22 20:11 Urine Ketones Negative (Negative) 12/07/22 20:11 Urine Blood Neg (Negative) 12/07/22 20:11 Urine Nitrate Negative (Negative) 12/07/22 20:11 Urine Bilirubin Neg (Negative) 12/07/22 20:11 Urine Urobilinogen Norm mg/dL (Negative) 12/07/22 20:11 Ur Leukocyte Esterase Negative (Negative) 12/07/22 20:11 Urine RBC 0-4 /hpf (0-2) H 12/07/22 20:11 Urine WBC 0-4 /hpf (0-5) H 12/07/22 20:11 Ur Squamous Epith Cells 0-4 /hpf (0-5) H 12/07/22 20:11 Amorphous Sediment Not Reportable 12/07/22 20:11 Urine Bacteria Trace /hpf (NONE) 12/07/22 20:11 Urine Mucus 1+ /hpf 12/07/22 20:11 Influenza Type A Ag negative (Negative) 12/07/22 20:54 Influenza Type B Ag negative (Negative) 12/07/22 20:54 SARS-CoV-2 Ag (Rapid) negative (Negative) 12/07/22 20:54 Discharge Plan Discharge Patient Disposition: Home Clinical Impression: Diverticulitis Condition: Stable Prescriptions: No Action lisinopril-hydrochlorothiazide 20-12.5 mg tablet 1 tab PO QAM artificial tears solution Drops 1 drp OPHTHALMIC (EYE) BID PRN (Reason: Dry Eye(S)) aspirin 81 mg Tablet,Delayed Release (Dr/Ec) 81 mg PO QAM acetaminophen 500 mg Tablet 500 mg PO QID PRN (Reason: Pain) fluticasone propionate 50 mcg/actuation [place],Suspension 1 spray INTRANASAL DAILY Rx Instructions: administer into each nostril loratadine [Claritin] 10 mg Tablet 10 mg PO DAILY PRN (Reason: Allergy Symptoms) cholecalciferol (vitamin D3) [Vitamin D3] 50 mcg (2,000 unit) Tablet 50 mcg PO QAM ipratropium-albuterol 20-100 mcg/actuation Mist 1 puff INHALATION QID PRN (Reason: Shortness Of Breath) Rx Instructions: space evenly during waking hours mometasone 100 mcg/actuation Hfa Aerosol Inhaler 1 puff INHALATION BID PRN (Reason: UNKNOWN) tamsulosin 0.4 mg capsule 0.4 mg PO BEDTIME metronidazole 500 mg tablet 500 mg PO Q8H 10 Days Qty: 30 0RF amoxicillin-pot clavulanate 875-125 mg tablet 1 tab PO BID Qty: 20 0RF Discharge Orders: Discharge ED (Routine); Ordered 12/07/22 Ordered By: Fortunato Conrad Referrals: Karlee Ashraf MD [Primary Care Provider] - Discharge Diet: Advance as tolerated and Clear Liquid Discharge Activity: Increase activity as tolerated Patient Instructions: Diverticulitis (ED), Diverticulitis Diet (ED), Opioid Safety Activity Restrictions/Additional Instructions: Thank you for visiting the emergency department. You were seen and evaluated for abdominal pain with nausea and vomiting. The most likely cause of your symptoms is diverticulitis. Given symptom improvement I believe it is reasonable to trial treatment at home with antibiotics. I would expect improvement in the next few days. Please follow-up with your primary care provider. Please return to the emergency department for worsening symptoms, inability to tolerate medication, or anything else that you are concerned about and feel needs emergency department evaluation. Coding Level of Care Code ED Cloud Automation Tester for Josie Cedeno
[2022-12-07 20:23] LABS: Basophils # 0.1 10^3/uL (0.0-0.1); Basophils % 0.5 %; Eosinophils # 0.1 10^3/uL (0.0-0.8); Eosinophils % 0.8 %; Hemoglobin 14.7 g/dL (11.7-16.6); Lymphocytes # 0.5 10^3/uL (0.8-4.8); Lymphocytes % 3.7 %; Mean Corpuscular HGB Conc 31.3 g/dL (30.0-36.0); Mean Corpuscular Hemoglobin 29.9 pg (28.0-34.0); Mean Corpuscular Volume 95.5 fl (80-94); Mean Platelet Volume 10.1 fL (7.4-10.4); Monocytes # 0.8 10^3/uL (0.2-0.9); Monocytes % 5.1 %; Neutrophils # 13.11 10^3/uL (1.8-7.7); Neutrophils % 89.4 %; Nucleated Red Blood Cells % 0 %; Platelet Count 252 10^3/cmm (130-400); Red Blood Count 4.92 10^6/uL (4.1-5.3); Red Cell Distribution Width 14.4 % (12.1-15.1); White Blood Count 14.7 10^3/uL (4.0-10.0)
[2022-12-07 20:29] LABS: Glucose Urine UA 4+ (Normal); Protein Urine 2+ (Negative); Urine Appearance Clear (CLEAR); Urine Color Yellow (Yellow); pH Urine 5 (5-7)
[2022-12-07 20:30] LABS: Add Urine Microscopic? YES
[2022-12-07 20:34] LABS: Add Urine Culture? No; Mucus Urine 1+ /hpf; RBC Urine 0-4 /hpf (0-2); Squamous Epithelial Cell Urine 0-4 /hpf (0-5); WBC Urine 0-4 /hpf (0-5)
--- NOTE | 2022-12-07 20:36 | CTR_ITS ---
PROCEDURE INFORMATION: Exam: CT Abdomen And Pelvis With Contrast Exam date and time: 12/07/2022 9:16 PM Age: 72 years old Clinical indication: Nausea and other: Generalized abd pain, nausea and chills; Abdominal pain; Prior surgery; Surgery type: Hernia, appx; Additional info: Pain, generalized, n/v, chills TECHNIQUE: Imaging protocol: Computed tomography of the abdomen and pelvis with contrast. Radiation optimization: All CT scans at this facility use at least one of these dose optimization techniques: automated exposure control; mA and/or kV adjustment per patient size (includes targeted exams where dose is matched to clinical indication); or iterative reconstruction. Contrast material: OMNIPAQUE 350; Contrast volume: 100 ml; Contrast route: INTRAVENOUS (IV); Other protocol: This patient has received 0 known CTs and 0 known cardiac nuclear medicine studies in the 12 months prior to the current study. COMPARISON: CR XR hip LT 2-3V wo/w pel* [id number] 04/04/2021 9:41 AM RADIATION DOSE METRICS: Total DLP (mGy-cm): 745.83 FINDINGS: Lungs: 3 mm left lower lobe nodule. Liver: Calcified granulomas in the right liver lobe. No suspicious nodule. Gallbladder and bile ducts: Normal. No calcified stones. No ductal dilation. Pancreas: Tiny calcifications scattered within the pancreas. Otherwise unremarkable. Spleen: Normal. No splenomegaly. Adrenal glands: Tiny nodules in both adrenal glands are too small to characterize and measure less than 1 cm. No imaging follow-up is recommended. Kidneys and ureters: Mild perinephric stranding is most likely chronic. 2 mm nonobstructing left renal calculus. Round hypodensities in the left kidney are too small to characterize but are most likely cysts. No follow-up imaging is recommended. No hydronephrosis. Stomach and bowel: Diverticulosis of the colon, greatest distally. There is mild inflammation involving a single diverticulum in the superior mid sigmoid colon with mild adjacent fat stranding. The remainder of the colon is unremarkable. The small bowel is normal. No obstruction. Small lipoma in the posterior gastric wall. No wall thickening. Appendix: The appendix is visualized and is normal. Intraperitoneal space: Unremarkable. No free air. No significant fluid collection. Vasculature: Arterial calcifications. 3.5 cm infrarenal abdominal aortic aneurysm. No dissection. Ectasia of the right common iliac artery. Lymph nodes: Unremarkable. No enlarged lymph nodes. Urinary bladder: Small left lateral urinary bladder diverticulum. The bladder is distended with urine. No wall thickening. Reproductive: Mildly enlarged prostate. Bones/joints: Mild degenerative changes of the spine. No acute fracture. Soft tissues: Fat containing left inguinal hernia. Tiny fat containing umbilical hernia. CT/CT abdomen pelvis w con* [id number] IMPRESSION: 1. Mild acute diverticulitis in the mid sigmoid colon. 2. 2 mm left renal calculus. 3. 3 mm left pulmonary nodule. For patients at low risk (minimal or absent history of smoking and of other known risk factors), no routine follow-up is indicated. For patients at high risk (history of smoking or of other known risk factors), consider optional CT Chest at 12 months. (Reference: Syeda) References: Syeda Houston, et al. Guidelines for Management of Incidental Pulmonary Nodules Detected on CT Images: From the Fleischner Society 2017. Radiology. 2017;284(1):228-243. COMMENTS: Consistent with the [place] [employer]'s Incidental Findings Committee white paper (J Am Jonathon Radiol 2018): Any incidental renal lesion less than 1 cm or classified as too small to characterize, or any incidental cystic renal lesion characterized as simple-appearing, is likely benign. No follow-up imaging is recommended for these lesions per consensus recommendations based on imaging criteria.
[2022-12-07 20:39] LABS: Alanine Aminotransferase 22 U/L (0-41); Albumin Level 3.9 g/dL (3.5-5.2); Alkaline Phosphatase 51 U/L (40-130); Anion Gap 11.2 (5-19); Aspartate Amino Transferase 24 U/L (0-40); Blood Urea Nitrogen 24 mg/dL (8-23); Calcium 9.3 mg/dL (8.5-10.5); Carbon Dioxide 34 mmol/L (22-29); Chloride 100 mmol/L (98-107); Globulin 2.4 g/dL (1.3-4.6); Glucose 102 mg/dL (65-115); Osmolality Calculated 296 mOsm/kg (285-295); Potassium 4.2 mmol/L (3.5-5.1); Sodium 141 mmol/L (136-145); Total Bilirubin 0.4 mg/dL (0.15-1.2); Total Protein 6.3 g/dL (6.6-8.7)
[2022-12-07] MEDS: ondansetron 2 mg/ML SDV 2 mL 4 MG IVP (20:56)
--- NOTE | 2022-12-07 21:06 | ECG_ITS ---
[facility] Test Date: 2022-12-07 Pat Name: Denis Pennington Department: Room: Gender: Male Senior Reservations Agent: : 1950 Requested By: Fortunato Conrad Order Number: [id number] Laurence MD: Sarah Hammonds M.D. Measurements Intervals [place] Rate: 96 P: 97 TN: 169 QRS: 140 QRSD: 141 T: 61 QT: 362 QTc: 458 Interpretive Statements SINUS RHYTHM WITH SINUS ARRHYTHMIA RIGHT BUNDLE BRANCH BLOCK [120+ ms QRS DURATION, UPRIGHT V1, 40+ ms S IN I/aVL/V4/V5/V6] LEFT POSTERIOR FASCICULAR BLOCK [QRS AXIS > 109, INFERIOR Q] Compared to ECG 01/04/2022 14:13:51 Right bundle-branch block now present Left posterior fascicular block now present Sinus bradycardia no longer present T-wave abnormality no longer present Possible ischemia no longer present Electronically Signed On 12-08-2022 16:48:50 WATER QUALITY CONTROL ENGINEER by Sarah Hammonds M.D. [id number]
[2022-12-07] MEDS: iohexol 350 mg/mL 500 mL Btl (per mL) IV (21:15)
[2022-12-07 21:18] LABS: Influenza A by IFA negative (Negative); Influenza B by IFA negative (Negative); SARS Covid-2 Antigen negative (Negative)
[2022-12-07 21:25] LABS: Lactate (Lactic Acid level) 1.4 mmol/L (0.5-2.2)
[2022-12-07 21:31] LABS: Troponin(5th) Baseline 30 ng/L (0-15)
--- NOTE | 2022-12-07 21:34 | XRR_ITS ---
PROCEDURE INFORMATION: Exam: XR Chest Exam date and time: 12/07/2022 9:40 PM Age: 72 years old Clinical indication: Shortness of breath; Additional info: Chill, hypoxia TECHNIQUE: Imaging protocol: Radiologic exam of the chest. Views: 1 view. COMPARISON: CR XR chest 2V* [id number] 01/04/2022 3:07 PM FINDINGS: Lungs: Changes of emphysema. Mild atelectasis or scar in the left lung base. The lungs are otherwise clear. No consolidation. Pleural spaces: Unremarkable. No pleural effusion. No pneumothorax. Heart/Mediastinum: Unremarkable. No cardiomegaly. Bones/joints: Old left rib fractures. XR/XR chest 1V portable [id number] IMPRESSION: No acute findings.
[2022-12-07 21:44] LABS: Bacteria Urine TRACE /hpf; Bilirubin Urine Neg (Negative); Blood Urine Neg (Negative); Ketones Urine Negative (Negative); Leukocyte Esterase Urine Negative (Negative); Nitrate Urine Negative (Negative); Urobilinogen Urine Norm (Negative)
[2022-12-07] MEDS: metroNIDAZOLE IV 500 MG/100 ML PREMIX 100 MG IV (22:16)
[2022-12-07 22:28] VITALS: BP 120/65; PULSE 97; RESP 16; O2SAT 98
--- NOTE | 2022-12-07 22:50 | ECG_ITS ---
[facility] Test Date: 2022-12-07 Pat Name: Denis Pennington Department: Room: Gender: Male Well Puller: : 1950 Requested By: Fortunato Conrad Order Number: [id number] Laurence MD: Sarah Hammonds M.D. Measurements Intervals [place] Rate: 89 P: 52 SD: 170 QRS: 133 QRSD: 146 T: 48 QT: 372 QTc: 454 Interpretive Statements SINUS RHYTHM RIGHT BUNDLE BRANCH BLOCK [120+ ms QRS DURATION, UPRIGHT V1, 40+ ms S IN I/aVL/V4/V5/V6] LEFT POSTERIOR FASCICULAR BLOCK [QRS AXIS > 109, INFERIOR Q] Compared to ECG 12/07/2022 21:06:29 Sinus arrhythmia no longer present Electronically Signed On 12-08-2022 17:05:05 MANAGER OF TRAINING AND DEVELOPMENT by Sarah Hammonds M.D. [id number]
[2022-12-07] MEDS: ciprofloxacin 400 MG/200 ML PREMIX 200 MG IV (23:00)
[2022-12-08 00:18] VITALS: BP 120/65; PULSE 88; RESP 16; O2SAT 99
== END 2022-12-08 00:19 | disposition home or self-care (01) ==
PROVIDERS: Emergency Provider Emergency Medicine; PCP Family Medicine
DX: K57.92 Diverticulitis of intestine, part unspecified, without perforation or abscess without bleeding (principal); Z79.82 Long term (current) use of aspirin; Z20.822 Contact with and (suspected) exposure to COVID-19; F17.210 Nicotine dependence, cigarettes, uncomplicated
CPT/HCPCS: 71045; 74177; 80053; 81001; 83605; 84484; 85025; 87040; 87150; 87205; 87426; 87804; 93005; 96365; 96367; 96375; 99285; J0744; J2405; J3490; Q9967

== ENCOUNTER 2022-12-09 12:39 | Inpatient (IN) | payer OTHER, SELFPAY ==
[2022-12-09] VITALS (68 sets, daily range): BP systolic 114–155; BP diastolic 64–95; PULSE 82–88; RESP 18–20; TEMP 36.8–37; O2SAT 87–98
--- NOTE | 2022-12-09 12:54 | W.ED.RECABL ---
HPI - Recheck/Abnormal Lab/Rx General: Chief Complaint: General Medical Stated Complaint: infection Time Seen by Provider: 12/09/22 12:40 History of Present Illness: Mr. Pennington is a 72-year-old gentleman with previous ED visit for chills and vomiting and abdominal pain found to have diverticulitis presenting to the emergency department for positive blood cultures. He was discharged with ciprofloxacin and Flagyl however apparently has not started taking these yet as [facility]. Overall chills have resolved however abdominal pain persists and patient does not feel back to baseline. Intensity symptoms moderate. Course has improved. No other specific changes in health, exacerbating, or alleviating factors identified. Review of Systems General: Reports: 10 or more systems reviewed and unremarkable except in HPI and below PFSH ED PFSH: Medical History Arthritis Bacteremia Bacterial infection due to Bacteroides fragilis BPH loc w urin obs/LUTS COPD (chronic obstructive pulmonary disease) Diverticulitis Diverticulitis Elevated PSA H/O fracture of ankle Hidradenitis suppurativa Hypertension Oxygen dependent Surgical History History of mandibular surgery History of surgery on arm Hx of hernia repair S/P appendectomy Family History Father , 77 CAD (coronary artery disease) Mother , 82 Cancer bREAST Social History Smoking and tobacco status: current every day smoker Alcohol intake: never Marital status: / Current occupational status: retired Physical Exam Const: COMMON NORMALS: alert GENERAL APPEARANCE: cooperative and well developed HENMT: COMMON NORMALS: normocephalic and atraumatic HEAD & SCALP: normocephalic and atraumatic Eye: COMMON NORMALS: conjunctivae normal CONJUNCTIVA: Yes conjunctivae normal SCLERA: sclerae normal Neck/C-Spine: COMMON NORMALS: supple GENERAL: Yes trachea midline Resp: COMMON NORMALS: normal respiratory effort EFFORT & INSPECTION: Yes able to speak in complete sentences Cardio: COMMON NORMALS: regular rate and regular rhythm RATE: regular rate RHYTHM: regular rhythm GI: COMMON NORMALS: Soft to palpation PALPATION: Yes Soft to palpation, Yes Tenderness to palpation present (GI), Yes Guarding due to palpation present (GI) and No Rigid due to palpation Extremity: GENERAL: Yes normal exam except as noted and No edema Neuro: COMMON NORMALS: moves all extremities SENSORIUM/ORIENTATION: Yes alert and No Orientation impaired Psych: COMMON NORMALS: mental status grossly normal and Normal thought process present THOUGHT PROCESS: Normal thought process present Course Vital Signs: Vital signs: Vital Signs Temperature 97.5 F L 12/11/22 11:32 Pulse Rate 60 12/11/22 16:08 Respiratory Rate 18 12/11/22 16:08 Blood Pressure 131/72 12/11/22 11:32 Pulse Oximetry 98 12/11/22 16:08 Oxygen Delivery Me thod 12/11/22 12:00 Oxygen Flow Rate 2.5 12/11/22 08:00 MDM - Recheck/Abnormal Lab/Rx Medical Decision Making 72-year-old male presenting due to positive blood cultures. Patient overall clinically appears improved however still has abdominal tenderness. Hematologic panel and metabolic panel without significant derangement. Prior work-up reviewed. Antibiotics ordered. Most likely etiology of patient's symptoms is bacteremia secondary to intra-abdominal infection. Despite patient's improvement patient requires finalization of cultures while receiving IV antibiotics for further management. The results of ED evaluation were discussed with the patient including plan for admission due to requirement for level of care not available if discharged to prevent significant worsening/deterioration. Patient agreeable with plan. Discussed with hospitalist service who was agreeable to admit patient. Medical Records I reviewed the patient's medical records. Lab Data I reviewed the patient's lab results. 12/10/22 04:52 12/10/22 04:52 Laboratory Results WBC 9.8 10^3/uL (4.0-10.0) 12/09/22 14:35 RBC 5.06 10^6/uL (4.1-5.3) 12/09/22 14:35 Hgb 15.2 g/dL (11.7-16.6) 12/09/22 14:35 Hct 48.9 % (42.0-52.0) 12/09/22 14:35 MCV 96.6 fl (80-94) H 12/09/22 14:35 MCH 30.0 pg (28.0-34.0) 12/09/22 14:35 MCHC 31.1 g/dL (30.0-36.0) 12/09/22 14:35 RDW 14.6 % (12.1-15.1) 12/09/22 14:35 Plt Count 246 10^3/cmm (130-400) 12/09/22 14:35 MPV 10.6 fL (7.4-10.4) H 12/09/22 14:35 Neut % (Auto) 69.8 % 12/09/22 14:35 Lymph % (Auto) 12.7 % 12/09/22 14:35 [place] % (Auto) 13.9 % 12/09/22 14:35 Eos % (Auto) 2.8 % 12/09/22 14:35 Baso % (Auto) 0.6 % 12/09/22 14:35 Neut # (Auto) 6.82 10^3/uL (1.8-7.7) 12/09/22 14:35 Lymph # (Auto) 1.2 10^3/uL (0.8-4.8) 12/09/22 14:35 [place] # (Auto) 1.4 10^3/uL (0.2-0.9) H 12/09/22 14:35 Eos # (Auto) 0.3 10^3/uL (0.0-0.8) 12/09/22 14:35 Baso # (Auto) 0.1 10^3/uL (0.0-0.1) 12/09/22 14:35 Nucleated RBC % (auto) 0 % 12/09/22 14:35 Nucleated RBCs # 0.0 /100WBC 12/09/22 14:35 Sodium 137 mmol/L (136-145) 12/09/22 14:35 Potassium 3.7 mmol/L (3.5-5.1) 12/09/22 14:35 Chloride 94 mmol/L (98-107) L 12/09/22 14:35 Carbon Dioxide 34 mmol/L (22-29) H 12/09/22 14:35 Anion Gap 12.7 (5-19) 12/09/22 14:35 BUN 20 mg/dL (8-23) 12/09/22 14:35 Creatinine 0.9 mg/dL (0.7-1.2) 12/09/22 14:35 GFR Calculation Not Reportable 12/09/22 14:35 Glucose 92 mg/dL (65-115) 12/09/22 14:35 Calculated Osmolality 286 mOsm/kg (285-295) 12/09/22 14:35 Lactate 1.4 mmol/L (0.5-2.2) 12/09/22 14:35 Calcium 9.2 mg/dL (8.5-10.5) 12/09/22 14:35 Total Bilirubin 0.2 mg/dL (0.15-1.2) 12/09/22 14:35 AST 38 U/L (0-40) 12/09/22 14:35 ALT 40 U/L (0-41) 12/09/22 14:35 Alkaline Phosphatase 63 U/L (40-130) 12/09/22 14:35 Total Protein 7.0 g/dL (6.6-8.7) 12/09/22 14:35 Albumin 4.0 g/dL (3.5-5.2) 12/09/22 14:35 Globulin 3.0 g/dL (1.3-4.6) 12/09/22 14:35 Procalcitonin 5.88 ng/mL (0-0.5) H 12/09/22 14:35 TSH 2.31 uIU/mL (0.27-4.20) 12/09/22 14:35 Urine Color Yellow (Yellow) 12/09/22 14:55 Urine Appearance Clear (CLEAR) 12/09/22 14:55 Urine pH 7 (5-7) 12/09/22 14:55 Ur Specific [place] 1.010 (1.005-1.030) 12/09/22 14:55 Urine Protein 1+ (Negative) H 12/09/22 14:55 Urine Glucose (UA) 4+ (Normal) H 12/09/22 14:55 Urine Ketones Negative (Negative) 12/09/22 14:55 Urine Blood Trace (Negative) H 12/09/22 14:55 Urine Nitrate Negative (Negative) 12/09/22 14:55 Urine Bilirubin Neg (Negative) 12/09/22 14:55 Urine Urobilinogen Norm mg/dL (Negative) 12/09/22 14:55 Ur Leukocyte Esterase Negative (Negative) 12/09/22 14:55 Urine RBC Rare /hpf (0-2) 12/09/22 14:55 Urine WBC Rare /hpf (0-5) 12/09/22 14:55 Ur Squamous Epith Cells None /hpf (0-5) 12/09/22 14:55 Amorphous Sediment Not Reportable 12/09/22 14:55 Urine Bacteria Trace /hpf (NONE) 12/09/22 14:55 Discharge Plan Discharge Patient Disposition: Admitted As Inpatient Admit Provider: Celine Hernandez Clinical Impression: Bacterial infection due to Bacteroides fragilis, Diverticulitis, Bacteremia Condition: Stable Coding Level of Care Code ED Information Clerk Brokerage for Josie Cedeno
--- NOTE | 2022-12-09 14:30 | P.HP_ITS ---
Providers/Chief Complaint Primary Care Provider: Karlee Ashraf MD Chief Complaint: infection History of Present Illness Denis Pennington is a 72 year old male with past medical history of BPH, hypertension, hyperlipidemia, arthritis, COPD on home oxygen 3.5 L [id number] presented to the hospital on with complaint of chills and trouble staying warm along with nausea and vomiting. He stayed till evening and was discharged on oral antibiotics around midnight. He was diagnosed with diverticulitis. Blood cultures were obtained. Patient states he has had diverticulitis before. He states that he started to feel little bit better but has been sleeping mostly for the last 3 days due to the infection. He had breakfast this morning and felt fine. Patient's blood cultures 4 out of 4 bottles were positive for Bacteroides and therefore he was called from the ER to come back to the hospital for admission for treatment. Patient was previously sent home with Asya and Bereket. Today he states he feels fine. D oes have sputum production which is his usual yellowish to white. Denies increasing oxygen requirement. Denies nausea vomiting diarrhea abdominal pain. ED course blood pressure 131/77 request. 18, pulse 82, temperature 98.6, saturating 92% on 3.5 L nasal cannula. Blood cultures were obtained again. He will be admitted at this time for IV antibiotic treatment. Medications/Allergies Home Medications Medication Instructions Recorded Confirmed Last Taken Type lisinopril 20 1 tab PO QAM 01/15/20 12/09/22 12/09/22 History mg-hydrochlorothiazide 12.5 mg tablet acetaminophen 500 mg tablet 500 mg PO QID PRN Pain 01/04/22 12/09/22 Unknown History artificial tears solution eye drops 1 drp ophthalmic (eye) BID PRN Dry 01/04/22 12/09/22 Unknown History Eye(S) aspirin 81 mg tablet,delayed 81 mg PO QAM 01/04/22 12/09/22 12/09/22 History release cholecalciferol (vitamin D3) 50 50 mcg PO QAM 01/04/22 12/09/22 12/09/22 History mcg (2,000 unit) tablet (Vitamin D3) fluticasone propionate 50 1 spray intranasal DAILY 01/04/22 12/09/22 Unknown History mcg/actuation nasal spray,suspension ipratropium 20 mcg-albuterol 100 1 puff inhalation QID PRN 01/04/22 12/09/22 Unknown History mcg/actuation mist for inhalation Shortness Of Breath loratadine 10 mg tablet (Claritin) 10 mg PO DAILY PRN Allergy Symptoms 01/04/22 12/09/22 Unknown History mometasone 100 mcg/actuation HFA 1 puff inhalation BID PRN UNKNOWN 01/04/22 12/09/22 Unknown History aerosol inhaler tamsulosin 0.4 mg capsule 0.4 mg PO BEDTIME 01/04/22 12/09/22 12/08/22 History Allergies Allergy/AdvReac Type Severity Reaction Status Date / Time atorvastatin [From Lipitor] Allergy NA Verified 11/22/22 10:28 cyclobenzaprine Allergy NA Verified 11/22/22 10:28 [From Flexeril] pravastatin Allergy NA Verified 11/22/22 10:28 rosuvastatin [From Crestor] Allergy NA Verified 11/22/22 10:28 PFSH Acute PFSH: Medical History BPH loc w urin obs/LUTS Elevated PSA H/O fracture of ankle Hidradenitis suppurativa Surgical History History of mandibular surgery History of surgery on arm Hx of hernia repair S/P appendectomy Family History Father , 77 CAD (coronary artery disease) Mother , 82 Cancer bREAST Social History Smoking and tobacco status: current every day smoker Alcohol intake: never Marital status: / Current occupational status: retired Vitals/I&O/Wt Last Vital Signs Temp 98.6 F 12/09/22 12:54 Pulse 82 12/09/22 14:22 Resp 18 12/09/22 14:22 BP 131/77 12/09/22 14:22 Pulse Ox 92 12/09/22 14:22 O2 Del Method 12/09/22 14:22 Weight last 48 hrs Weight 83.915 kg Physical Exam Narrative: General: Alert oriented x3, patient seen sitting up in bed on 3.5 L nasal cannula holding a kidney tray spitting up whitish phlegm. HEENT: Normocephalic, atraumatic, EOMI, breathing comfortably. No acute respiratory distress. Cardio: Regular rate rhythm, normal S1-S2, no murmurs Respiratory: Good bilateral air entry, no wheezes no rhonchi appreciated GI: Abdomen soft, nontender, nondistended, bowel sounds + Behavior: Appropriate and cooperative Extremities: Trace bilateral lower extremity edema present at this time. Data 12/09/22 14:35 12/09/22 14:35 A&P Assessment and plan (1) BPH loc w urin obs/LUTS: (2) Diverticulitis: (3) Bacterial infection due to Bacteroides fragilis: (4) Bacteremia: (5) Hypertension: (6) Arthritis: (7) COPD (chronic obstructive pulmonary disease): (8) Oxygen dependent: Plan #Bacteroides fragilis bacteremia 4 out of 4 blood cultures positive #Diverticulitis #Hypertension #COPD #Oxygen dependent 3.5 L nasal cannula [id number] #BPH #Arthritis #Hyperlipidemia ? Initial blood culture from 07 December was positive for 4 out of 4 bottles for Bacteroides. ? Repeat blood cultures today ? Lactic acid normal 1.4 ? WBC count 9.4 normal ? Procalcitonin elevated at 5.88 ? UA pending at this time ? Check urine culture ? Continue patient on Zosyn 3 times daily ? Continue normal saline 125 cc/h ? Continue on lisinopril hydrochlorothiazide, DuoNeb every 4 hours as needed, aspirin 81 daily, tamsulosin -Diet: GI soft diet, cardiac ? GI prophylaxis: Not indicated DVT prophylaxis: Heparin SQ twice daily Attestations Medical Necessity Statement*: Will cross greater than 2 midnight stay for management of bacteremia. Diagnoses BPH loc w urin obs/LUTS N40.1 Diverticulitis K57.92 Bacterial infection due to Bacteroides fragilis A49.8 Bacteremia R78.81 Hypertension I10 Arthritis M19.90 COPD (chronic obstructive pulmonary disease) J44.9 Oxygen dependent Z99.81
[2022-12-09 15:08] LABS: Basophils # 0.1 10^3/uL (0.0-0.1); Basophils % 0.6 %; Eosinophils # 0.3 10^3/uL (0.0-0.8); Eosinophils % 2.8 %; Hematocrit 48.9 % (42.0-52.0); Hemoglobin 15.2 g/dL (11.7-16.6); Lymphocytes # 1.2 10^3/uL (0.8-4.8); Lymphocytes % 12.7 %; Mean Corpuscular HGB Conc 31.1 g/dL (30.0-36.0); Mean Corpuscular Volume 96.6 fl (80-94); Mean Platelet Volume 10.6 fL (7.4-10.4); Monocytes # 1.4 10^3/uL (0.2-0.9); Monocytes % 13.9 %; Neutrophils # 6.82 10^3/uL (1.8-7.7); Neutrophils % 69.8 %; Nucleated Red Blood Cells % 0 %; Platelet Count 246 10^3/cmm (130-400); Red Blood Count 5.06 10^6/uL (4.1-5.3); Red Cell Distribution Width 14.6 % (12.1-15.1); White Blood Count 9.8 10^3/uL (4.0-10.0)
[2022-12-09 15:19] LABS: Lactate (Lactic Acid level) 1.4 mmol/L (0.5-2.2)
[2022-12-09 15:30] LABS: Procalcitonin 5.88 ng/mL (0-0.5); Thyroid Stimulating Hormone 2.31 uIU/mL (0.27-4.20)
[2022-12-09 15:41] LABS: Alanine Aminotransferase 40 U/L (0-41); Alkaline Phosphatase 63 U/L (40-130); Anion Gap 12.7 (5-19); Aspartate Amino Transferase 38 U/L (0-40); Blood Urea Nitrogen 20 mg/dL (8-23); Calcium 9.2 mg/dL (8.5-10.5); Carbon Dioxide 34 mmol/L (22-29); Chloride 94 mmol/L (98-107); Glucose 92 mg/dL (65-115); Osmolality Calculated 286 mOsm/kg (285-295); Potassium 3.7 mmol/L (3.5-5.1); Sodium 137 mmol/L (136-145); Total Bilirubin 0.2 mg/dL (0.15-1.2)
[2022-12-09] MEDS: heparin 5,000 unit/mL INJ 1 mL 5000 UNIT SUBCUT (15:45)
[2022-12-09] MEDS: piperacillin-tazobactam 4.5 GM in sodium chloride 0.9% (plus) 50 ML IV (15:50)
[2022-12-09] MEDS: sodium chloride 0.9% 1,000 ML 125 ML IV ×2 (15:50→23:37)
[2022-12-09 16:52] LABS: Add Urine Microscopic? YES; Bilirubin Urine Neg (Negative); Blood Urine Trace (Negative); Glucose Urine UA 4+ (Normal); Ketones Urine Negative (Negative); Leukocyte Esterase Urine Negative (Negative); Nitrate Urine Negative (Negative); Protein Urine 1+ (Negative); RBC Urine RARE /hpf (0-2); Urine Appearance Clear (CLEAR); Urine Color Yellow (Yellow); Urobilinogen Urine Norm (Negative); WBC Urine RARE /hpf (0-5); pH Urine 7 (5-7)
[2022-12-09 16:53] LABS: Add Urine Culture? No; Bacteria Urine TRACE /hpf
--- NOTE | 2022-12-09 20:00 | PC.NURSE ---
Pt arrived on the med surg unit at this time.
[2022-12-09] MEDS: ipratropium-albuterol 3 mL Neb INHALATION (20:16)
[2022-12-09] MEDS: tamsulosin 0.4 mg Capsule PO (21:09)
[2022-12-10] VITALS (10 sets, daily range): BP systolic 91–154; BP diastolic 53–70; PULSE 64–89; RESP 14–20; TEMP 36.3–36.7; O2SAT 91–96
[2022-12-10] MEDS: piperacillin-tazobactam 3.375 GM in sodium chloride 0.9% (plus) 50 ML IV ×4 (00:33→23:58)
[2022-12-10] MEDS: heparin 5,000 unit/mL INJ 1 mL 5000 UNIT SUBCUT ×2 (02:50→14:37)
[2022-12-10 05:39] LABS: Basophils # 0.1 10^3/uL (0.0-0.1); Basophils % 0.7 %; Eosinophils # 0.3 10^3/uL (0.0-0.8); Eosinophils % 3.6 %; Hematocrit 41.9 % (42.0-52.0); Hemoglobin 12.9 g/dL (11.7-16.6); Lymphocytes # 1.2 10^3/uL (0.8-4.8); Lymphocytes % 15.3 %; Mean Corpuscular HGB Conc 30.8 g/dL (30.0-36.0); Mean Corpuscular Hemoglobin 30.1 pg (28.0-34.0); Mean Corpuscular Volume 97.9 fl (80-94); Mean Platelet Volume 10.9 fL (7.4-10.4); Monocytes # 1.3 10^3/uL (0.2-0.9); Monocytes % 17.6 %; Neutrophils # 4.76 10^3/uL (1.8-7.7); Neutrophils % 62.5 %; Nucleated Red Blood Cells % 0 %; Platelet Count 198 10^3/cmm (130-400); Red Blood Count 4.28 10^6/uL (4.1-5.3); Red Cell Distribution Width 14.3 % (12.1-15.1); White Blood Count 7.6 10^3/uL (4.0-10.0)
[2022-12-10] MEDS: cholecalciferol (vitamin D3) 1,000 unit Tablet 2000 UNIT PO (05:39)
[2022-12-10] MEDS: aspirin 81 mg EC Tablet PO (05:39)
[2022-12-10 05:52] LABS: Alanine Aminotransferase 28 U/L (0-41); Albumin Level 2.9 g/dL (3.5-5.2); Alkaline Phosphatase 52 U/L (40-130); Aspartate Amino Transferase 26 U/L (0-40); Blood Urea Nitrogen 14 mg/dL (8-23); Calcium 7.9 mg/dL (8.5-10.5); Carbon Dioxide 30 mmol/L (22-29); Chloride 98 mmol/L (98-107); Globulin 2.6 g/dL (1.3-4.6); Glucose 99 mg/dL (65-115); Magnesium 2.2 mg/dL (1.7-2.3); Osmolality Calculated 279 mOsm/kg (285-295); Sodium 134 mmol/L (136-145); Total Bilirubin 0.2 mg/dL (0.15-1.2); Total Protein 5.5 g/dL (6.6-8.7)
[2022-12-10] MEDS: sodium chloride 0.9% 1,000 ML 125 ML IV ×3 (08:09→22:16)
[2022-12-10] MEDS: ipratropium-albuterol 3 mL Neb INHALATION ×3 (08:43→21:08)
--- NOTE | 2022-12-10 09:16 | PM.PN ---
Subjective Subjective: seen today no acute events overnight Vitals/I&O/Wt Last Vital Signs Temp 97.7 F 12/10/22 08:00 Pulse 89 12/10/22 08:00 Resp 18 12/10/22 08:00 BP 100/59 12/10/22 08:00 Pulse Ox 96 12/10/22 08:00 O2 Del Method 12/10/22 08:00 O2 Flow Rate 2 12/10/22 08:00 12/09/22 12/10/22 12/10/22 22:59 06:59 14:59 Intake Total 50 / 50 1022.917 / 7567.723 4395 / 1000 Output Total 375 / 375 500 / 500 Balance 50 / 50 647.917 / 697.917 500 / 500 Weight last 48 hrs Weight 83.915 kg Physical Exam Narrative: General: Alert oriented x3, patient seen sitting up on side of bed on 3.5 L nasal cannula HEENT: Normocephalic, atraumatic, EOMI, breathing comfortably. No acute respiratory distress. Cardio: Regular rate rhythm, normal S1-S2, no murmurs Respiratory: Good bilateral air entry, no wheezes no rhonchi appreciated GI: Abdomen soft, nontender, nondistended, bowel sounds + Behavior: Appropriate and cooperative Extremities: Trace bilateral lower extremity edema present at this time. Data 12/10/22 04:52 12/10/22 04:52 Micro: Microbiology 12/09/22 14:45 Blood Culture - Preliminary Blood SPECIMEN COLLECTED 12/09/22 14:35 Blood Culture - Preliminary Blood SPECIMEN COLLECTED A&P Assessment and plan (1) BPH loc w urin obs/LUTS: (2) Diverticulitis: (3) Bacterial infection due to Bacteroides fragilis: (4) Bacteremia: (5) Hypertension: (6) Arthritis: (7) COPD (chronic obstructive pulmonary disease): (8) Oxygen dependent: Plan #Bacteroides fragilis bacteremia 4 out of 4 blood cultures positive #Diverticulitis #Hypertension #COPD #Oxygen dependent 3.5 L nasal cannula [id number] #BPH #Arthritis #Hyperlipidemia ? Initial blood culture from 07 December was positive for 4 out of 4 bottles for Bacteroides. ? Repeat blood cultures today ? Lactic acid normal 1.4 ? WBC count 9.4 normal ? Procalcitonin elevated at 5.88 ? UA pending at this time ? Check urine culture ? Continue patient on Zosyn 3 times daily ? Continue normal saline 125 cc/h ? Continue on lisinopril hydrochlorothiazide, DuoNeb every 4 hours as needed, aspirin 81 daily, tamsulosin -Diet: GI soft diet, cardiac ? GI prophylaxis: Not indicated DVT prophylaxis: Heparin SQ twice daily Attestations Medical Necessity Statement*: Will cross greater than 2 midnight stay for management of bacteremia. Diagnoses BPH loc w urin obs/LUTS N40.1 Diverticulitis K57.92 Bacterial infection due to Bacteroides fragilis A49.8 Bacteremia R78.81 Hypertension I10 Arthritis M19.90 COPD (chronic obstructive pulmonary disease) J44.9 Oxygen dependent Z99.81
[2022-12-10] MEDS: tamsulosin 0.4 mg Capsule PO (19:52)
[2022-12-11] VITALS (7 sets, daily range): BP systolic 108–138; BP diastolic 71–80; PULSE 60–73; RESP 16–20; TEMP 36.4–36.7; O2SAT 92–98
[2022-12-11] MEDS: heparin 5,000 unit/mL INJ 1 mL 5000 UNIT SUBCUT (03:21)
[2022-12-11 05:12] LABS: Basophils % 0.6 %; Eosinophils # 0.3 10^3/uL (0.0-0.8); Eosinophils % 5.1 %; Hematocrit 42.6 % (42.0-52.0); Hemoglobin 12.8 g/dL (11.7-16.6); Lymphocytes # 1.4 10^3/uL (0.8-4.8); Lymphocytes % 20.8 %; Mean Corpuscular Hemoglobin 29.8 pg (28.0-34.0); Mean Corpuscular Volume 99.3 fl (80-94); Mean Platelet Volume 11.4 fL (7.4-10.4); Monocytes # 1.1 10^3/uL (0.2-0.9); Monocytes % 16.3 %; Neutrophils # 3.77 10^3/uL (1.8-7.7); Nucleated Red Blood Cells % 0 %; Platelet Count 168 10^3/cmm (130-400); Red Blood Count 4.29 10^6/uL (4.1-5.3); Red Cell Distribution Width 14.3 % (12.1-15.1); White Blood Count 6.6 10^3/uL (4.0-10.0)
[2022-12-11] MEDS: aspirin 81 mg EC Tablet PO (05:41)
[2022-12-11] MEDS: cholecalciferol (vitamin D3) 1,000 unit Tablet 2000 UNIT PO (05:41)
[2022-12-11 05:49] LABS: Anion Gap 13.6 (5-19); Blood Urea Nitrogen 13 mg/dL (8-23); Calcium 8.3 mg/dL (8.5-10.5); Carbon Dioxide 29 mmol/L (22-29); Chloride 104 mmol/L (98-107); Glucose 164 mg/dL (65-115); Osmolality Calculated 298 mOsm/kg (285-295); Potassium 4.6 mmol/L (3.5-5.1); Sodium 142 mmol/L (136-145)
[2022-12-11] MEDS: sodium chloride 0.9% 1,000 ML 125 ML IV (06:27)
[2022-12-11] MEDS: piperacillin-tazobactam 3.375 GM in sodium chloride 0.9% (plus) 50 ML IV (08:20)
[2022-12-11] MEDS: hydroCHLOROthiazide 25 mg Tablet 12.5 MG PO (08:22)
[2022-12-11] MEDS: lisinopril 20 mg Tablet PO (08:22)
[2022-12-11] MEDS: ipratropium-albuterol 3 mL Neb INHALATION (08:47)
--- NOTE | 2022-12-11 10:05 | PC.CHAP ---
Pastoral Care Encounter/Spiritual Assessment Type of Contact [] Declined psychological examiner visit [] Patient/Family/Request visit [] Outpatient visit [] Follow-up visit [] Physician referral [] Code/Alert [x] Routine visit [] Staff referral [] Actively dying [] Patient sleeping [x] Family support [] [] Out of room [] Palliative care [] [] Receiving care in room [] Pre-surgical visit [] Trauma [] Long length of stay [] ICU visit [] Other: Relational/Emotional Strength [x] Patient feels connected with others/family/visitors/staff [] Distress [] Loneliness/isolation [] Abandonment Spirituality of Patient [x] Person of Lissy [] Attends Islam of their Lissy [x] Believes in Prayer [] Reads Bible or Roman Catholic materials [] There are Spiritual issues to be addressed [place] Interventions [x] Prayer [x] Active listening [] Non-anxious presence [] Spiritual/emotional support [] Crisis/trauma care [] Spiritual counseling [] Bereavement support [] Provided bereavement packet [] Provided Bible/devotional materials [] Provided toy/stuffed animal, coloring book to patient or family member [] Provided Communion [] Anointing/[place] [] Salvation [x] Completed spiritual assessment [] Other: Impact on Illness or Injury [] Angry [] Fearful [] Anxious [] Often cries [] Exhaustion [] Unable to work [] Unable to attend yarsanism [] Unable to walk/stand [] Unable to read [] Unable to drive [] Unable to eat/drink [] Unable to sleep [] Unable to be with family [] Patient intubated [] Other: Summary Time spent with patient 5 min
[2022-12-11] MEDS: albuterol 2.5 mg/3 mL Neb INHALATION (12:11)
[2022-12-11] MEDS: ipratropium 0.5 mg/2.5 mL Neb INHALATION (12:11)
--- NOTE | 2022-12-11 13:44 | PM.DCS ---
Discharge Providers Date of Admission: 12/09/22 19:59 Date of Discharge: December 11, 2022 Attending Provider at Admission: Celine Hernandez MD Attending Provider at Discharge: Ninoska Aguilar MD Primary Care Provider: Karlee Ashraf MD Diagnoses at Discharge Discharge Diagnosis (1) BPH loc w urin obs/LUTS: Status: Acute (2) Diverticulitis: Status: Acute (3) Bacterial infection due to Bacteroides fragilis: Status: Acute (4) Bacteremia: Status: Acute (5) Hypertension: Status: Acute (6) Arthritis: Status: Acute (7) COPD (chronic obstructive pulmonary disease): Status: Acute (8) Oxygen dependent: Status: Acute Reason for Visit Reason for Visit: infection Hospital Course Hospital Course 72-year-old male was called by the ER physician because of positive blood cultures with Bacteroides fragilis however at home he was getting ciprofloxacin and Flagyl which seemed to improve his symptoms, he was diagnosed with diverticulitis, he has not noticed any hematochezia, melena, last colonoscopy was roughly 5 to 6 years ago at [facility], he is willing to go for another colonoscopy if needed after his diverticulitis episode is resolved. He remained hemodynamically stable afebrile, repeat cultures remain negative to date, I did call the lab to verify sensitivity report, they cannot run the sensitivity report here however Bacteroides is sensitive to penicillin. At the time of discharge I will give him Augmentin and Flagyl. 10-day course. Can follow-up with PCP within 7 days. Patient remains on 3 to 3.5 L of oxygen [id number] at home. He will resume his antihypertensive regimen at discharge. No signs of kidney injury. Physical Exam Narrative: Awake and alert Son at the bedside Currently on 3 L Abdomen soft Euvolemic Nonfocal neuro exam S1, S2 Discharge Data Studies Completed and Pending Pending at discharge Category Date Time Status Blood Culture Stat Lab 12/09/22 14:45 Results Sputum Culture and Gram Stain Stat Lab 12/10/22 Results Urine Culture Stat Lab 12/10/22 12:56 Results Laboratory Results WBC 6.6 10^3/uL (4.0-10.0) 12/11/22 04:14 RBC 4.29 10^6/uL (4.1-5.3) 12/11/22 04:14 Hgb 12.8 g/dL (11.7-16.6) 12/11/22 04:14 Hct 42.6 % (42.0-52.0) 12/11/22 04:14 MCV 99.3 fl (80-94) H 12/11/22 04:14 MCH 29.8 pg (28.0-34.0) 12/11/22 04:14 MCHC 30.0 g/dL (30.0-36.0) 12/11/22 04:14 RDW 14.3 % (12.1-15.1) 12/11/22 04:14 Plt Count 168 10^3/cmm (130-400) 12/11/22 04:14 MPV 11.4 fL (7.4-10.4) H 12/11/22 04:14 Neut % (Auto) 57.0 % 12/11/22 04:14 Lymph % (Auto) 20.8 % 12/11/22 04:14 Tucker % (Auto) 16.3 % 12/11/22 04:14 Eos % (Auto) 5.1 % 12/11/22 04:14 Baso % (Auto) 0.6 % 12/11/22 04:14 Neut # (Auto) 3.77 10^3/uL (1.8-7.7) 12/11/22 04:14 Lymph # (Auto) 1.4 10^3/uL (0.8-4.8) 12/11/22 04:14 Tucker # (Auto) 1.1 10^3/uL (0.2-0.9) H 12/11/22 04:14 Eos # (Auto) 0.3 10^3/uL (0.0-0.8) 12/11/22 04:14 Baso # (Auto) 0.0 10^3/uL (0.0-0.1) 12/11/22 04:14 Nucleated RBC % (auto) 0 % 12/11/22 04:14 Nucleated RBCs # 0.0 /100WBC 12/11/22 04:14 Sodium 142 mmol/L (136-145) 12/11/22 04:14 Potassium 4.6 mmol/L (3.5-5.1) 12/11/22 04:14 Chloride 104 mmol/L (98-107) 12/11/22 04:14 Carbon Dioxide 29 mmol/L (22-29) 12/11/22 04:14 Anion Gap 13.6 (5-19) 12/11/22 04:14 BUN 13 mg/dL (8-23) 12/11/22 04:14 Creatinine 0.8 mg/dL (0.7-1.2) 12/11/22 04:14 GFR Calculation Not Reportable 12/11/22 04:14 Glucose 164 mg/dL (65-115) H 12/11/22 04:14 Calculated Osmolality 298 mOsm/kg (285-295) H 12/11/22 04:14 Lactate 1.4 mmol/L (0.5-2.2) 12/09/22 14:35 Calcium 8.3 mg/dL (8.5-10.5) L 12/11/22 04:14 Magnesium 2.2 mg/dL (1.7-2.3) 12/10/22 04:52 Total Bilirubin 0.2 mg/dL (0.15-1.2) 12/10/22 04:52 AST 26 U/L (0-40) 12/10/22 04:52 ALT 28 U/L (0-41) 12/10/22 04:52 Alkaline Phosphatase 52 U/L (40-130) 12/10/22 04:52 Total Protein 5.5 g/dL (6.6-8.7) L D 12/10/22 04:52 Albumin 2.9 g/dL (3.5-5.2) L 12/10/22 04:52 Globulin 2.6 g/dL (1.3-4.6) 12/10/22 04:52 Procalcitonin 5.88 ng/mL (0-0.5) H 12/09/22 14:35 TSH 2.31 uIU/mL (0.27-4.20) 12/09/22 14:35 Urine Color Yellow (Yellow) 12/09/22 14:55 Urine Appearance Clear (CLEAR) 12/09/22 14:55 Urine pH 7 (5-7) 12/09/22 14:55 Ur Specific Sunshine 1.010 (1.005-1.030) 12/09/22 14:55 Urine Protein 1+ (Negative) H 12/09/22 14:55 Urine Glucose (UA) 4+ (Normal) H 12/09/22 14:55 Urine Ketones Negative (Negative) 12/09/22 14:55 Urine Blood Trace (Negative) H 12/09/22 14:55 Urine Nitrate Negative (Negative) 12/09/22 14:55 Urine Bilirubin Neg (Negative) 12/09/22 14:55 Urine Urobilinogen Norm mg/dL (Negative) 12/09/22 14:55 Ur Leukocyte Esterase Negative (Negative) 12/09/22 14:55 Urine RBC Rare /hpf (0-2) 12/09/22 14:55 Urine WBC Rare /hpf (0-5) 12/09/22 14:55 Ur Squamous Epith Cells None /hpf (0-5) 12/09/22 14:55 Amorphous Sediment Not Reportable 12/09/22 14:55 Urine Bacteria Trace /hpf (NONE) 12/09/22 14:55 Vitals Last Vital Signs Temp 97.5 F L 12/11/22 11:32 Pulse 60 12/11/22 12:00 Resp 18 12/11/22 12:00 BP 131/72 12/11/22 11:32 Pulse Ox 98 12/11/22 12:00 O2 Del Method 12/11/22 12:00 O2 Flow Rate 2.5 12/11/22 08:00 Discharge Plan Discharge Patient Disposition: Home Condition: Stable Prescriptions: New amoxicillin-pot clavulanate 875-125 mg tablet 1 tab PO BID Qty: 20 0RF metronidazole 500 mg tablet 500 mg PO Q8H 10 Days Qty: 30 0RF Continued lisinopril-hydrochlorothiazide 20-12.5 mg tablet 1 tab PO QAM artificial tears solution Drops 1 drp OPHTHALMIC (EYE) BID PRN (Reason: Dry Eye(S)) aspirin [Aspir-81] 81 mg Tablet,Delayed Release (Dr/Ec) 81 mg PO QAM acetaminophen [Tylenol Ex Str Rapid Release] 500 mg Tablet 500 mg PO QID PRN (Reason: Pain) fluticasone propionate [Flonase] 50 mcg/actuation [place],Suspension 1 spray INTRANASAL DAILY Rx Instructions: administer into each nostril loratadine [Claritin] 10 mg Tablet 10 mg PO DAILY PRN (Reason: Allergy Symptoms) cholecalciferol (vitamin D3) [Vitamin D3] 50 mcg (2,000 unit) Tablet 50 mcg PO QAM ipratropium-albuterol 20-100 mcg/actuation Mist 1 puff INHALATION QID PRN (Reason: Shortness Of Breath) Rx Instructions: space evenly during waking hours mometasone 100 mcg/actuation Hfa Aerosol Inhaler 1 puff INHALATION BID PRN (Reason: UNKNOWN) tamsulosin 0.4 mg capsule 0.4 mg PO BEDTIME Discharge Orders: Discharge Order (Routine); Ordered 12/11/22 Ordered By: Ninoska Aguilar Referrals: Karlee Ashraf MD [Primary Care Provider] - 1 week Patient Instructions: Opioid Safety Discharge Attestations Time Spent in Discharge Care*: less than 30 min Quality Metrics Clinical Quality Measures [ No reported AMI, CVA or VTE this stay] Coding Level of Care Code Acute Code for Chg Fwd Diagnoses BPH loc w urin obs/LUTS N40.1 Diverticulitis K57.92 Bacterial infection due to Bacteroides fragilis A49.8 Bacteremia R78.81 Hypertension I10 Arthritis M19.90 COPD (chronic obstructive pulmonary disease) J44.9 Oxygen dependent Z99.81
--- NOTE | 2022-12-11 15:38 | PC.NURSE ---
patient verbalized understanding of discharge instructions, home medications, and follow up appointments. 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
== END 2022-12-11 15:50 | disposition home or self-care (01) | DRG 392 ==
LOC: ER 14:33 → MEDSURG 17:35
PROVIDERS: Admitting Provider Internal Medicine; Emergency Provider Emergency Medicine; PCP Family Medicine; Visit Provider Internal Medicine
DX: K57.92 Diverticulitis of intestine, part unspecified, without perforation or abscess without bleeding (principal); B96.6 Bacteroides fragilis [B. fragilis] as the cause of diseases classified elsewhere; Z79.82 Long term (current) use of aspirin; N40.1 Benign prostatic hyperplasia with lower urinary tract symptoms; I10 Essential (primary) hypertension; E78.5 Hyperlipidemia, unspecified; J44.9 Chronic obstructive pulmonary disease, unspecified; Z99.81 Dependence on supplemental oxygen; F17.200 Nicotine dependence, unspecified, uncomplicated; M19.90 Unspecified osteoarthritis, unspecified site
CPT/HCPCS: 36415; 80048; 80053; 81001; 83605; 83735; 84145; 84443; 85025; 87040; 87070; 87086; 87205; 94640; 96365; 96372; 99285; J1644; J2543; J7030; J7613; J7644

== ENCOUNTER → 2023-03-01 09:59 | Outpatient (BNVA) | payer OTHER, SELFPAY | PROVIDERS: PCP Family Medicine; Visit Provider Podiatrist Foot & Ankle Surgery | DX: I73.9 Peripheral vascular disease, unspecified (principal); L60.8 Other nail disorders; L60.3 Nail dystrophy | CPT/HCPCS: 11721 ==

== ENCOUNTER 2023-03-12 09:13 | Outpatient (CLI) | payer OTHER, SELFPAY ==
--- NOTE | 2023-03-12 09:23 | CT_ITS ---
WS: [id number] CT CHEST TECHNIQUE: Contrast enhanced CT of the chest with coronal and sagittal reformatted images. CLINICAL INFORMATION: REPEAT YEARLY CT ABNORMAL 3MM LEFT PULMONARY NODULE COMPARISON: CT abdomen pelvis December 07, 2022 DLP: 243.[address] scans at [facility] use at least one of these dose optimization techniques: automated e xposure control; mA and/or kV adjustment per patient size (includes targeted exams where dose is matc hed to clinical indication); or iterative reconstruction. FINDINGS:Small hazy 3.5 mm LEFT lower lobe laterally is unchanged. Recommend 12 month follow-up. Mild chronic emphysematous changes. A few calcified granulomas. Subsegmental atelectasis in the LEFT upper lobe anteriorly with pleural thickening and traction bronchiectasis. Moderate atheromatous dise ase thoracic aorta. Coronary calcification. No mediastinal or hilar lymphadenopathy. Diffuse fatty infiltration liver. Small LEFT adrenal adenoma measuring [address]/CT chest w con* [id number] IMPRESSION: 1. Small hazy 3.5 mm LEFT lower lobe laterally. Recommend 12 month follow-up. 2. Subsegmental atelectasis in the LEFT upper lobe anteriorly with pleural thi ckening along the mediastinum and traction bronchiectasis. 3. Mild chronic emphysematous changes.
[2023-03-12 10:20] LABS: Blood Urea Nitrogen 21 mg/dL (8-23)
[2023-03-12] MEDS: iohexol 350 mg/mL 500 mL Btl (per mL) IV (10:25)
== END 2023-03-12 09:14 | disposition home or self-care (01) ==
LOC: RAD 09:17
PROVIDERS: PCP Family Medicine; Visit Provider Family Medicine
DX: R91.1 Solitary pulmonary nodule (principal); J98.11 Atelectasis; J43.9 Emphysema, unspecified
CPT/HCPCS: 71260; 82565; 84520; Q9967

== ENCOUNTER → 2023-05-07 09:31 | Outpatient (BNVA) | payer OTHER, SELFPAY | PROVIDERS: PCP Family Medicine; Visit Provider Podiatrist Foot & Ankle Surgery | DX: I73.9 Peripheral vascular disease, unspecified (principal); L60.3 Nail dystrophy | CPT/HCPCS: 11721 ==

== ENCOUNTER → 2023-07-02 08:54 | Outpatient (BNVA) | payer OTHER, SELFPAY | PROVIDERS: PCP Family Medicine; Visit Provider Podiatrist Foot & Ankle Surgery | DX: I73.9 Peripheral vascular disease, unspecified (principal); L60.3 Nail dystrophy | CPT/HCPCS: 11721 ==

== ENCOUNTER 2023-08-07 20:11 | Emergency (ER) | payer OTHER, SELFPAY ==
[2023-08-07 20:13] VITALS: BP 153/79; PULSE 77; RESP 18; TEMP 36.6; O2SAT 90; BMI 26.6
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
--- NOTE | 2023-08-07 20:23 | XRR_ITS ---
PROCEDURE INFORMATION: Exam: XR Lumbosacral Spine Exam date and time: 08/07/2023 8:50 PM Age: 72 years old Clinical indication: Injury or trauma; Fall; Blunt trauma (contusions or hematomas); Additional info: Fall injury TECHNIQUE: Imaging protocol: Radiologic exam of the lumbosacral spine. Views: 2 or 3 views. COMPARISON: CT abdomen pelvis w con* [id number] 12/07/2022 9:16 PM FINDINGS: Bones/joints: Mild right convex scoliosis. The lumbar spine is straightened. Disc space height loss L5-S1 with facet arthrosis is unchanged. No acute displaced fracture. Soft tissues: Unremarkable. Vasculature: Vascular calcifications. XR/XR lumbar spine 2-3V* [id number] IMPRESSION: Degenerative changes. No acute injury.
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
[2023-08-07] MEDS: fentaNYL 50 mcg/mL INJ 2mL IVP (21:06)
[2023-08-07 21:07] VITALS: BP 186/83; PULSE 81; RESP 18; O2SAT 95
[2023-08-07] MEDS: ketorolac 30 mg/mL INJ 15 MG IVP (23:24)
== END 2023-08-07 23:51 | disposition home or self-care (01) ==
PROVIDERS: Emergency Provider Nurse Practitioner Family; PCP Family Medicine
DX: S32.019A Unspecified fracture of first lumbar vertebra, initial encounter for closed fracture (principal); S32.029A Unspecified fracture of second lumbar vertebra, initial encounter for closed fracture; S32.039A Unspecified fracture of third lumbar vertebra, initial encounter for closed fracture; Z79.82 Long term (current) use of aspirin; F17.210 Nicotine dependence, cigarettes, uncomplicated; J44.9 Chronic obstructive pulmonary disease, unspecified; I10 Essential (primary) hypertension; Z99.81 Dependence on supplemental oxygen; Y04.2XXA Assault by strike against or bumped into by another person, initial encounter; Y07.44 Child, perpetrator of maltreatment and neglect
CPT/HCPCS: 70450; 71250; 72100; 74176; 96374; 96375; 99285; J1885; J3010

== ENCOUNTER → 2023-09-24 14:18 | Outpatient (BNVA) | payer OTHER, SELFPAY | PROVIDERS: PCP Family Medicine; Visit Provider Podiatrist Foot & Ankle Surgery | DX: L60.8 Other nail disorders (principal); I73.9 Peripheral vascular disease, unspecified; L60.3 Nail dystrophy | CPT/HCPCS: 11721 ==

== ENCOUNTER 2023-10-11 15:32 | Emergency (ER) | payer OTHER, SELFPAY ==
[2023-10-11 15:33] VITALS: BP 135/80; PULSE 79; RESP 16; TEMP 36.3; O2SAT 92; BMI 28.2
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
[2023-10-11] MEDS: amoxicillin-clav 875-125 mg Tablet 1 TAB PO (16:06)
[2023-10-11] MEDS: bacitracin ointment Pkt 1 EACH TOPICAL (16:06)
[2023-10-11] MEDS: dexamethasone 10 mg/mL INJ IM (16:06)
== END 2023-10-11 16:10 | disposition home or self-care (01) ==
PROVIDERS: Emergency Provider Nurse Practitioner Family; PCP Family Medicine
DX: T20.14XA Burn of first degree of nose (septum), initial encounter (principal); Z79.82 Long term (current) use of aspirin; Z99.81 Dependence on supplemental oxygen; J44.9 Chronic obstructive pulmonary disease, unspecified; I10 Essential (primary) hypertension; Z72.0 Tobacco use; E78.5 Hyperlipidemia, unspecified; F03.90 Unspecified dementia, unspecified severity, without behavioral disturbance, psychotic disturbance, mood disturbance, and anxiety; W40.8XXA Explosion of other specified explosive materials, initial encounter
CPT/HCPCS: 71045; 96372; 99284; J1100

== ENCOUNTER 2023-10-20 10:23 | Emergency (ER) | payer OTHER, SELFPAY ==
[2023-10-20 10:28] VITALS: BP 123/54; PULSE 89; RESP 22; TEMP 36.8; O2SAT 85
--- NOTE | 2023-10-20 11:02 | ED_ITS ---
HPI - COVID General: Chief Complaint: COVID symptoms Stated Complaint: Fever, sob, cough,wants covid tested Time Seen by Provider: 10/20/23 10:26 History of Present Illness: Patient presents to the ER with chief complaint fever cough and shortness of breath. Patient does have COPD. Patient and son who is his main director of nurses registry is COVID-positive since Sunday. Patient wants tested for COVID. COVID Results: SARS-CoV-2 Antigen (Rapid) positive (Negative) H 10/20/23 11:0 7 SARS-CoV-2 (PCR) Not detected (NOT DETECT) 01/04/22 12:55 Coronavirus Type 229E (PCR) Not detected (NOT DETECT) 01/04/22 12:55 Review of Systems General: Reports: 10 or more systems reviewed and unremarkable except in HPI and below PFSH ED PFSH: Medical History Oxygen dependent COPD (chronic obstructive pulmonary disease) Arthritis Hypertension Bacteremia Diverticulitis Bacterial infection due to Bacteroides fragilis Diverticulitis Hidradenitis suppurativa H/O fracture of ankle BPH loc w urin obs/LUTS Elevated PSA Surgical History History of surgery on arm History of mandibular surgery Hx of hernia repair S/P appendectomy Family History Father , 77 CAD (coronary artery disease) Mother , 82 Cancer bREAST Social History Smoking and tobacco/nicotine status: current every day tobacco/nicotine user Alcohol intake: never Substance/Drug Use: never Marital status: / Current occupational status: retired Physical Exam Const: COMMON NORMALS: no acute distress, average body habitus, patient oriented x3, no limitations, healthy appearing, alert and well nourished HENMT: COMMON NORMALS: normocephalic, atraumatic, hearing grossly normal bilaterally, external ears normal, Normal external nose present, moist oral mucous membranes and oropharynx normal HEAD & SCALP: normocephalic and atraumatic NOSE: Normal external nose present EXTERNAL EAR: Yes external ears normal Neck/C-Spine: COMMON NORMALS: no JVD Chest: COMMONS NORMALS: normal inspection of the chest and normal palpation of entire chest wall Resp: COMMON NORMALS: normal respiratory effort, No retractions and No use of accessory muscles; negative for clear to auscultation bilaterally (Occasional diffuse wheezing) AUSCULTATION: not clear to auscultation bilaterally (Occasional diffuse wheezing) Cardio: COMMON NORMALS: no JVD, regular rate, regular rhythm, S1 normal heart sound present, S2 normal heart sound present, No gallops present (Cardio), No clicks present (Cardio), No murmurs present (Cardio) and No rub (Cardio) RATE: regular rate RHYTHM: regular rhythm HEART SOUNDS: S1 normal heart sound present and S2 normal heart sound present GI: COMMON NORMALS: Normal to inspection, nondistended, normoactive bowel sounds present, Soft to palpation, non-tender, No hepatosplenomegaly present and no masses PALPATION: Yes Soft to palpation and Yes No hepatosplenomegaly present Neuro: COMMON NORMALS: patient oriented x3 SENSORIUM/ORIENTATION: Yes alert Course Vital Signs: Vital signs: Vital Signs Temperature 98.3 F 10/20/23 10:28 Pulse Rate 89 10/20/23 10:28 Respiratory Rate 22 H 10/20/23 10:28 Blood Pressure 123/54 10/20/23 10:28 Pulse Oximetry 90 10/20/23 11:14 Oxygen Delivery Me thod Nasal Cannula 10/20/23 10:28 Oxygen Flow Rate 3 10/20/23 11:14 MDM - COVID Medical Decision Making Patient was tested for COVID since his son has COVID and is his main director of nurses registry. Patient will be discharged and called with the results. Patient also wants Paxlovid if positive because his son took it and his son is feeling much better. Differential Diagnosis Likely COVID 19 Medical Records I reviewed the patient's medical records. Lab Data I reviewed the patient's lab results. Laboratory Results SARS-CoV-2 Ag (Rapid) positive (Negative) H 10/20/23 11:07 SARS-CoV-2 Antigen (Rapid) positive (Negative) H 10/20/23 11:0 7 SARS-CoV-2 (PCR) Not detected (NOT DETECT) 01/04/22 12:55 Coronavirus Type 229E (PCR) Not detected (NOT DETECT) 01/04/22 12:55 No radiology studies performed this visit Discharge Plan Discharge Patient Disposition: Home Clinical Impression: Bronchitis, Contact with and (suspected) exposure to covid-19 Condition: Stable Prescriptions: New Paxlovid 300 mg (150 mg x 2)-100 mg tablets,dose pack See Rx Instructions .ROUTE .COMPLEX Qty: 30 0RF Rx Instructions: take TWO 150 mg tablets of nirmatrelvir with ONE 100 mg tablet of ritonavir twice daily for 5 days you must not take your Flomax the same day. Paxlovid 300 mg (150 mg x 2)-100 mg tablets,dose pack See Rx Instructions .ROUTE .COMPLEX Qty: 30 0RF Rx Instructions: take TWO 150 mg tablets of nirmatrelvir with ONE 100 mg tablet of ritonavir twice daily for 5 days No Action lisinopril-hydrochlorothiazide 20-12.5 mg tablet 1 tab PO QAM fenofibrate 50 mg capsule 50 mg PO DAILY (DME) Custom Molded Accommadative Orthotics with Metatarsal Pads and Orthopedic Shoes See Rx Instructions .Route .MEDSUPPLY Qty: 1 0RF Rx Instructions: As directed J P & O artificial tears solution Drops 1 drp OPHTHALMIC (EYE) BID PRN (Reason: Dry Eye(S)) aspirin 81 mg Tablet,Delayed Release (Dr/Ec) 81 mg PO QAM acetaminophen 500 mg Tablet 500 mg PO QID PRN (Reason: Pain) fluticasone propionate 50 mcg/actuation [place],Suspension 1 spray INTRANASAL DAILY Rx Instructions: administer into each nostril loratadine [Claritin] 10 mg Tablet 10 mg PO DAILY PRN (Reason: Allergy Symptoms) cholecalciferol (vitamin D3) [Vitamin D3] 50 mcg (2,000 unit) Tablet 50 mcg PO QAM ipratropium-albuterol 20-100 mcg/actuation Mist 1 puff INHALATION QID PRN (Reason: Shortness Of Breath) Rx Instructions: space evenly during waking hours mometasone 100 mcg/actuation Hfa Aerosol Inhaler 1 puff INHALATION BID PRN (Reason: UNKNOWN) tamsulosin 0.4 mg capsule 0.4 mg PO BEDTIME bacitracin 500 unit/gram ointment 1 applic topical BID Qty: 28 0RF amoxicillin-pot clavulanate 875-125 mg tablet 1 tab PO BID Qty: 14 0RF celecoxib 200 mg capsule 200 mg PO BID Qty: 30 0RF hydrocodone-acetaminophen 5-325 mg tablet 1 tab PO Q6H PRN (Reason: pain (scale score 7-10)) Qty: 12 0RF Discharge Orders: Discharge ED (Routine); Ordered 10/20/23 Ordered By: Celestino Lopez Referrals: Karlee Ashraf MD [Primary Care Provider] - 1 week Patient Instructions: Acute Bronchitis (ED), COVID-19 (Coronavirus Disease 2019) (ED) Activity Restrictions/Additional Instructions: You have a COVID test pending in the ER. You will be called with the results which usually take 1 to 2 hours. If positive you will be prescribed Paxlovid as this has helped your son with his COVID. Otherwise follow-up with your family practice physician in 7 to 10 days for further evaluation and treatment. Coding Level of Care Code ED Estimator Printing for Josie Cedeno
[2023-10-20 11:14] VITALS: O2SAT 90
[2023-10-20 12:05] LABS: SARS Covid-2 Antigen positive (Negative)
--- NOTE | 2023-10-20 13:00 | PC.NURSE ---
Contacted patient post discharge to notify of positive COVID result, script sent to pharmacy. Patient verbalized understanding of this and states he is headed to the pharmacy to pick it up.
== END 2023-10-20 11:26 | disposition home or self-care (01) ==
PROVIDERS: Emergency Provider Emergency Medicine; PCP Family Medicine
DX: J44.89 Other specified chronic obstructive pulmonary disease (principal); J40 Bronchitis, not specified as acute or chronic; U07.1 COVID-19; Z79.82 Long term (current) use of aspirin; Z72.0 Tobacco use; I10 Essential (primary) hypertension
CPT/HCPCS: 87426; 99283

== ENCOUNTER 2023-10-23 08:30 | Emergency (ER) | payer OTHER, SELFPAY ==
[2023-10-23 08:41] VITALS: BP 115/78; PULSE 87; TEMP 36.4; O2SAT 78; BMI 29.8
--- NOTE | 2023-10-23 09:12 | XRR_ITS ---
PROCEDURE INFORMATION: Exam: XR Chest Exam date and time: 10/23/2023 9:23 AM Age: 72 years old Clinical indication: Dyspnea; Additional info: Covid, dyspnea TECHNIQUE: Imaging protocol: Radiologic exam of the chest. Views: 1 view. COMPARISON: CR XR chest 1V portable [id number] 10/11/2023 3:50 PM FINDINGS: Lungs: Hazy opacity in the right lung base, new compared to 10/11/2023. Pleural spaces: No large pleural effusion. No significant pneumothorax. Heart/Mediastinum: Cardiomediastinal silhouette is midline and normal in size. Vasculature: Mild calcific disease of the aorta. Bones/joints: No acute osseous findings. XR/XR chest 1V portable [id number] IMPRESSION: Hazy opacity in the right lung base, new compared to 10/11/2023. This may be projectional but likely represents infiltrate and/or atelectasis.
--- NOTE | 2023-10-23 09:12 | W.ED.COVID ---
HPI - COVID General: Chief Complaint: Shortness of Breath/Dyspnea Stated Complaint: sob Time Seen by Provider: 10/23/23 09:03 Source: patient Mode of arrival: wheelchair Limitations: no limitations Triage information: Has fever, cough or shortness of breath. Exposure to COVID + person last 14 days History of Present Illness: Patient is a 72-year-old male with a history of COPD here with a complaint of shortness of breath. Patient states 2 days ago he was diagnosed with COVID. He apparently was prescribed Paxlovid however when he went to fill the medication he was quoted a ridiculous padilla for the medication and thus did not fill it. Patient states he wears 2 to 3 L of oxygen continuously with his COPD. He states sometimes he can get by with 2 but recently has had to wear 3. Patient has not been running fevers. He states he is mainly here to try and find a way to get this medication cheaper. MD complaint: known COVID positive Prior covid testing: yes, results known COVID 19 common symptoms: positive productive cough and dyspnea (acute on chronic); negative fever(s), chills, fatigue, body aches, headache(s), throat pain, nasal congestion, nausea, vomiting or diarrhea COVID 19 other sytmptoms: negative chest pain, confusion or dizziness COVID Results: SARS-CoV-2 Antigen (Rapid) positive (Negative) H 10/20/23 11:07 SARS-CoV-2 (PCR) Not detected (NOT DETECT) 01/04/22 12:55 Coronavirus Type 229E (PCR) Not detected (NOT DETECT) 01/04/22 12:55 Review of Systems Const: Reports: other (reports generalized weakness); Denies: fever(s), chills, body aches, fatigue or malaise Eyes: Denies: change in vision or blurry vision ENMT: Denies: throat pain, odynophagia, ear or mastoid pain, nasal discharge, nasal congestion or sinus pain Card: Reports: dyspnea on exertion (chronic) and orthopnea (chronic); Denies: chest pain, palpitations, irregular heart rhythm, edema, swelling of feet/ankles, lightheadedness, syncope, pre-syncope, leg pain with exertion or acrocyanosis Resp: Reports: dyspnea (acute on chronic), productive cough and chest congestion; Denies: wheezing, stridor, pain on inspiration or hemoptysis GI: Denies: abdominal pain, nausea, vomiting, heartburn or diarrhea : Denies: difficulty urinating or dysuria Musc: Denies: neck pain, back pain, extremity pain, extremity swelling or joint pain Skin/Breast: Denies: rash Neuro: Denies: headache(s), numbness in extremities, weakness in extremities, sensory changes, dizziness, confusion, behavioral changes, Slurred speech present, difficulty communicating thoughts or seizure-like activity PFS ED PFSH: Medical History Oxygen dependent COPD (chronic obstructive pulmonary disease) Arthritis Hypertension Bacteremia Diverticulitis Bacterial infection due to Bacteroides fragilis Diverticulitis Hidradenitis suppurativa H/O fracture of ankle BPH loc w urin obs/LUTS Elevated PSA Surgical History History of surgery on arm History of mandibular surgery Hx of hernia repair S/P appendectomy Family History Father , 77 CAD (coronary artery disease) Mother , 82 Cancer bREAST Social History Smoking and tobacco/nicotine status: current every day tobacco/nicotine user Alcohol intake: never Substance/Drug Use: never Marital status: / Current occupational status: retired Physical Exam Const: COMMON NORMALS: no acute distress, patient oriented x3, no limitations and alert GENERAL APPEARANCE: cooperative ORIENTATION/CONSCIOUSNESS: Yes awake, Yes oriented to person, Yes oriented to place and Yes oriented to time HENMT: COMMON NORMALS: normocephalic and atraumatic HEAD & SCALP: normal to inspection, normocephalic and atraumatic Eye: COMMON NORMALS: no scleral icterus GENERAL EYE: appearance normal, both eyes and all related structures Neck/C-Spine: COMMON NORMALS: no JVD Chest: COMMONS NORMALS: normal inspection of the chest and normal palpation of entire chest wall Resp: COMMON NORMALS: No retractions and No use of accessory muscles EFFORT & INSPECTION: Yes able to speak in complete sentences AUSCULTATION: wheezes (occasional wheezes ) OTHER: patient is satting at 92% on 3L which he states is about his baseline; states at home his O2 normally runs around 90% on 2-3L Cardio: COMMON NORMALS: no JVD, regular rate and regular rhythm RATE: regular rate RHYTHM: regular rhythm Extremity: COMMON NORMALS: normal to inspection, capillary refill normal, no clubbing, cyanosis or edema, no calf tenderness and no pedal edema GENERAL: Yes normal exam except as noted Neuro: TINA COMA SCALE: document GCS findings [place] coma scale eye opening: Spontaneous Tina coma scale verbal response: Orientated Tina coma scale motor response: Obey commands Tina coma scale total score: 15 COMMON NORMALS: patient oriented x3, moves all extremities, no focal motor deficits and no sensory deficits noted SENSORIUM/ORIENTATION: Yes alert, Yes oriented to person, Yes oriented to place and Yes oriented to time Skin: COMMON NORMALS: no rashes or lesions noted GENERAL SKIN EXAM: no rashes or lesions noted Course Vital Signs: Vital signs: Vital Signs Temperature 97.5 F L 10/23/23 08:41 Pulse Rate 87 10/23/23 08:41 Blood Pressure 115/78 10/23/23 08:41 Pulse Oximetry 78 L 10/23/23 08:41 Oxygen Delivery Me thod Room Air 10/23/23 08:41 MDM - COVID Medical Decision Making Patient reportedly arrived to the ED not wearing any form of oxygen and was satting 78% on room air. He was placed on 5 L by triage staff. During my assessment I decreased him down to his normal 3 L. O2 sats are staying at roughly 92% which she states is close to his baseline. He states at home his oxygen normally runs 90% on 2 to 3 L. Remainder of vitals are stable. Blood work overall is nonactionable. His CXR showing pneumonia in his right lung base consistent with COVID viral pneumonia. I contacted our main campus pharmacy in regards to his medications. They state herrmann pay padilla for Paxlovid is roughly $6. Pharmacy will be bringing him his prescriptions for Paxlovid as well as Dexamethasone prior to discharge. We did discuss possible admission however patient is adamant he would like to go home. Strict return ED precautions were given. Quarantine precautions discussed. Lab Data 10/23/23 09:29 10/23/23 09:29 Radiology Impressions Chest X-Ray 10/23/23 09:12 IMPRESSION: Hazy opacity in the right lung base, new compared to 10/11/2023. This may be projectional but likely represents infiltrate and/or atelectasis. Laboratory Results WBC 8.28 10^3/uL (3.29-11.43) 10/23/23 09:29 RBC 4.63 10^6/uL (3.85-5.65) 10/23/23 09:29 Hgb 13.90 g/dL (11.27-16.99) 10/23/23 09:29 Hct 45.2 % (37-53) 10/23/23 09: MCV 97.6 fl (82-101) 10/23/23 09: MCH 30.0 pg (27-33) 10/23/23 09: MCHC 30.8 g/dL (30-55) 10/23/23 09: RDW 13.1 % (12.1-15.1) 10/23/23 09: Plt Count 293 10^3/cmm (157-399) 10/23/23 09:29 MPV 9.5 fL (7.4-10.4) 10/23/23 09: Neut % (Auto) 79.7 % 10/23/23 09: Lymph % (Auto) 10.0 % 10/23/23 09: [place] % (Auto) 9.1 % 10/23/23 09:29 Eos % (Auto) 0.4 % 10/23/23 09: Baso % (Auto) 0.4 % 10/23/23 09: Neut # (Auto) 6.61 10^3/uL (1.8-7.7) 10/23/23 09: Lymph # (Auto) 0.8 10^3/uL (0.8-4.8) 10/23/23 09: [place] # (Auto) 0.8 10^3/uL (0.2-0.9) 10/23/23 09: Eos # (Auto) 0.0 10^3/uL (0.0-0.8) 10/23/23 09:29 Baso # (Auto) 0.0 10^3/uL (0.0-0.1) 10/23/23 09:29 Nucleated RBC % (auto) 0 % 10/23/23 09:29 Nucleated RBCs # 0.0 /100WBC 10/23/23 09:29 Sodium 135 mmol/L (136-145) L 10/23/23 09:29 Potassium 4.4 mmol/L (3.5-5.1) 10/23/23 09:29 Chloride 92 mmol/L (98-107) L 10/23/23 09:29 Carbon Dioxide 36 mmol/L (22-29) H 10/23/23 09:29 Anion Gap 11.4 (5-19) 10/23/23 09:29 BUN 13 mg/dL (8-23) 10/23/23 09:29 Creatinine 0.7 mg/dL (0.7-1.2) 10/23/23 09:29 GFR Calculation Not Reportable 10/23/23 09:29 Glucose 129 mg/dL (65-115) H 10/23/23 09:29 Calculated Osmolality 282 mOsm/kg (285-295) L 10/23/23 09:29 Calcium 9.1 mg/dL (8.5-10.5) 10/23/23 09:29 Total Bilirubin 0.2 mg/dL (0.15-1.2) 10/23/23 09:29 AST 23 U/L (0-40) 10/23/23 09:29 ALT 19 U/L (0-41) 10/23/23 09:29 Alkaline Phosphatase 44 U/L (40-130) 10/23/23 09:29 Total Protein 7.2 g/dL (6.6-8.7) 10/23/23 09:29 Albumin 3.1 g/dL (3.5-5.2) L 10/23/23 09:29 Globulin 4.1 g/dL (1.3-4.6) 10/23/23 09:29 SARS-CoV-2 Antigen (Rapid) positive (Negative) H 10/20/23 11:07 SARS-CoV-2 (PCR) Not detected (NOT DETECT) 01/04/22 12:55 Coronavirus Type 229E (PCR) Not detected (NOT DETECT) 01/04/22 12:55 All radiology interpretation(s) finalized by discharge Discharge Plan Discharge Patient Disposition: Home Clinical Impression: Pneumonia due to 2019-nCoV, COVID Condition: Stable Prescriptions: New Paxlovid 300 mg (150 mg x 2)-100 mg tablets,dose pack See Rx Instructions .ROUTE .COMPLEX Qty: 30 0RF Rx Instructions: take TWO 150 mg tablets of nirmatrelvir with ONE 100 mg tablet of ritonavir twice daily for 5 days dexamethasone 6 mg tablet 6 mg PO DAILY Qty: 6 0RF No Action lisinopril-hydrochlorothiazide 20-12.5 mg tablet 1 tab PO QAM fenofibrate 50 mg capsule 50 mg PO DAILY (DME) Custom Molded Accommadative Orthotics with Metatarsal Pads and Orthopedic Shoes See Rx Instructions .Route .MEDSUPPLY Qty: 1 0RF Rx Instructions: As directed J P & O artificial tears solution Drops 1 drp OPHTHALMIC (EYE) BID PRN (Reason: Dry Eye(S)) aspirin 81 mg Tablet,Delayed Release (Dr/Ec) 81 mg PO QAM acetaminophen 500 mg Tablet 500 mg PO QID PRN (Reason: Pain) fluticasone propionate 50 mcg/actuation [place],Suspension 1 spray INTRANASAL DAILY Rx Instructions: administer into each nostril loratadine [Claritin] 10 mg Tablet 10 mg PO DAILY PRN (Reason: Allergy Symptoms) cholecalciferol (vitamin D3) [Vitamin D3] 50 mcg (2,000 unit) Tablet 50 mcg PO QAM ipratropium-albuterol 20-100 mcg/actuation Mist 1 puff INHALATION QID PRN (Reason: Shortness Of Breath) Rx Instructions: space evenly during waking hours mometasone 100 mcg/actuation Hfa Aerosol Inhaler 1 puff INHALATION BID PRN (Reason: UNKNOWN) tamsulosin 0.4 mg capsule 0.4 mg PO BEDTIME bacitracin 500 unit/gram ointment 1 applic topical BID Qty: 28 0RF amoxicillin-pot clavulanate 875-125 mg tablet 1 tab PO BID Qty: 14 0RF celecoxib 200 mg capsule 200 mg PO BID Qty: 30 0RF hydrocodone-acetaminophen 5-325 mg tablet 1 tab PO Q6H PRN (Reason: pain (scale score 7-10)) Qty: 12 0RF Paxlovid 300 mg (150 mg x 2)-100 mg tablets,dose pack See Rx Instructions .ROUTE .COMPLEX Qty: 30 0RF Rx Instructions: take TWO 150 mg tablets of nirmatrelvir with ONE 100 mg tablet of ritonavir twice daily for 5 days you must not take your Flomax the same day. Paxlovid 300 mg (150 mg x 2)-100 mg tablets,dose pack See Rx Instructions .ROUTE .COMPLEX Qty: 30 0RF Rx Instructions: take TWO 150 mg tablets of nirmatrelvir with ONE 100 mg tablet of ritonavir twice daily for 5 days Discharge Orders: Discharge ED (Routine); Ordered 10/23/23 Ordered By: Shandra Velazco Referrals: Karlee Ashraf MD [Primary Care Provider] - Patient Instructions: COVID-19 (Coronavirus Disease 2019) (ED) Activity Restrictions/Additional Instructions: As we discussed you need to continue to monitor your oxygen closely. You need to return to the emergency department if you are requiring more than your baseline oxygen or feel significantly more so short of breath than your baseline, any difficulty breathing, fevers, generally feeling worse or unwell, or any other concerns you may have. As we discussed pharmacy is bringing your medications to you prior to your discharge. You need to start them immediately. Coding Level of Care Code ED Instructor Watch Assembly for Josie Cedeno
[2023-10-23] MEDS: dexamethasone 10 mg/mL INJ 8 MG IM (09:27)
[2023-10-23 09:41] LABS: Basophils % 0.4 %; Eosinophils % 0.4 %; Hematocrit 45.2 % (37-53); Lymphocytes # 0.8 10^3/uL (0.8-4.8); Mean Corpuscular HGB Conc 30.8 g/dL (30-55); Mean Corpuscular Volume 97.6 fl (82-101); Mean Platelet Volume 9.5 fL (7.4-10.4); Monocytes # 0.8 10^3/uL (0.2-0.9); Monocytes % 9.1 %; Neutrophils # 6.61 10^3/uL (1.8-7.7); Neutrophils % 79.7 %; Nucleated Red Blood Cells % 0 %; Platelet Count 293 10^3/cmm (157-399); Red Blood Count 4.63 10^6/uL (3.85-5.65); Red Cell Distribution Width 13.1 % (12.1-15.1); White Blood Count 8.28 10^3/uL (3.29-11.43)
[2023-10-23 10:03] LABS: Alanine Aminotransferase 19 U/L (0-41); Albumin Level 3.1 g/dL (3.5-5.2); Alkaline Phosphatase 44 U/L (40-130); Anion Gap 11.4 (5-19); Aspartate Amino Transferase 23 U/L (0-40); Blood Urea Nitrogen 13 mg/dL (8-23); Calcium 9.1 mg/dL (8.5-10.5); Carbon Dioxide 36 mmol/L (22-29); Chloride 92 mmol/L (98-107); Globulin 4.1 g/dL (1.3-4.6); Glucose 129 mg/dL (65-115); Osmolality Calculated 282 mOsm/kg (285-295); Potassium 4.4 mmol/L (3.5-5.1); Sodium 135 mmol/L (136-145); Total Bilirubin 0.2 mg/dL (0.15-1.2); Total Protein 7.2 g/dL (6.6-8.7)
[2023-10-23 11:00] VITALS: BP 111/57; PULSE 79; O2SAT 89
== END 2023-10-23 11:10 | disposition home or self-care (01) ==
PROVIDERS: Emergency Provider Physician Assistant; PCP Family Medicine
DX: U07.1 COVID-19 (principal); J12.82 Pneumonia due to coronavirus disease 2019; Z79.82 Long term (current) use of aspirin; Z72.0 Tobacco use; J44.9 Chronic obstructive pulmonary disease, unspecified; Z99.81 Dependence on supplemental oxygen; I10 Essential (primary) hypertension
CPT/HCPCS: 36415; 71045; 80053; 85025; 96372; 99284; J1100

== ENCOUNTER 2023-10-25 08:25 | Emergency (ER) | payer OTHER, SELFPAY ==
[2023-10-25 08:35] VITALS: BP 167/100; PULSE 92; TEMP 36.5; O2SAT 81; BMI 29.8
--- NOTE | 2023-10-25 09:26 | PC.PHAR ---
DENIS TINOCO FOR MED LIST 10/25/23 9:25AM
[2023-10-25 09:57] VITALS: BP 160/95; PULSE 90; RESP 18; O2SAT 90
[2023-10-25 10:42] VITALS: BP 150/76; O2SAT 90
--- NOTE | 2023-10-25 10:50 | XR_ITS ---
WS: [id number] Portable AP upright chest, 10/25/2023 Clinical Data: Cough Comparison: Portable chest, 10/23/2023 Findings: No nodules, masses or effusions are seen. The heart is normal. The pulmonary vascularity is not increased. No pneumothorax is seen. Hazy opacity overlying the right diaphragm has cleared. Ther e is minimal hazy opacity overlying the left lateral diaphragm which could represent atelectasis and/ or pneumonia. Impression: Mild hazy opacity overlying left lateral diaphragm which could represent pneumonia and/or atelectasis .
--- NOTE | 2023-10-25 11:16 | W.ED.SOB ---
HPI - SOB/Dyspnea General: Chief Complaint: Shortness of Breath/Dyspnea Stated Complaint: Confusion, SOB Time Seen by Provider: 10/25/23 08:35 History of Present Illness: HPI Narrative: 72-year-old male presents emergency department with complaints of increased shortness of breath. He was seen on October 23, 2023 diagnosed with COVID and shortness of breath. He states that there was a delay in picking up his medications that he received and he is also not been wearing his home oxygen as requested. He states that his son became concerned as he felt like his father was having increased shortness of breath. Review of Systems General: Reports: 10 or more systems reviewed and unremarkable except in HPI and below Const: Reports: fatigue and malaise Resp: Reports: dyspnea and non-productive cough PFSH ED PFSH: Medical History Oxygen dependent COPD (chronic obstructive pulmonary disease) Arthritis Hypertension Bacteremia Diverticulitis Bacterial infection due to Bacteroides fragilis Diverticulitis Hidradenitis suppurativa H/O fracture of ankle BPH loc w urin obs/LUTS Elevated PSA Surgical History History of surgery on arm History of mandibular surgery Hx of hernia repair S/P appendectomy Family History Father , 77 CAD (coronary artery disease) Mother , 82 Cancer bREAST Social History Smoking and tobacco/nicotine status: current every day tobacco/nicotine user Alcohol intake: never Substance/Drug Use: never Marital status: / Current occupational status: retired Physical Exam Narrative: EXAM NARRATIVE: Constitutional: the patient appears well nourished and of normal development. Vital signs as documented. No acute distress at present. Alert and oriented-to person, place, time and situation. Head, eyes, ears, nose, mouth, throat: Normocephalic, atraumatic. Pupils-equal, round, reactive to light. No scleral icterus. Normal-appearing external ears. Normal appearing nasal turbinates, no drainage. No obvious oral lesions, posterior oropharynx without erythema or exudates. Neck: Supple, trachea is midline, no lymphadenopathy, no jugular venous distension, thyromegaly, or carotid bruits. Carotid upstrokes are brisk bilaterally. Lungs: clear to auscultation to all lung noriega. Symmetrical rise and fall of chest, no obvious signs of increased work of breathing at present. Cardiac: Regular rate and rhythm, positive S1, S2. No murmurs, rubs or gallops that I can appreciate Abdomen: Soft, non-tender to palpation, normal active bowel sounds to all quadrants. No palpable masses, no organomegaly and abdominal bruits. Extremities: 2+ pulses in the upper extremities that are equal bilaterally, 2+ pulses in the lower extremities that are equal bilaterally. Non-edematous. Moves all extremities well, sensation to all extremities are noted. Skin: Warm, dry, intact. Course Vital Signs: Vital signs: Vital Signs Temperature 97.7 F 10/25/23 08:35 Pulse Rate 90 10/25/23 09:57 Respiratory Rate 18 10/25/23 09:57 Blood Pressure 150/76 10/25/23 10:42 Pulse Oximetry 90 10/25/23 10:42 Oxygen Delivery Me thod Nasal Cannula 10/25/23 10:42 Oxygen Flow Rate 4 10/25/23 10:42 MDM - SOB/Dyspnea Medical Decision Making Physical exam completed and documented, I have reviewed the patient's previous medical record he does appear to be recently treated I reemphasized the importance of supportive care and treatment I will obtain a chest x-ray to evaluate for progression and possible pneumonia. Medical Records I reviewed the patient's medical records. All radiology interpretation(s) finalized by discharge Discharge Plan Discharge Patient Disposition: Home Clinical Impression: COVID Cough Qualifiers: Cough type: acute Qualified Code(s): R05.1 - Acute cough Condition: Stable Prescriptions: No Action (DME) Custom Molded Accommadative Orthotics with Metatarsal Pads and Orthopedic Shoes See Rx Instructions .Route .MEDSUPPLY Qty: 1 0RF Rx Instructions: As directed J P [facility] O aspirin 81 mg Tablet,Delayed Release (Dr/Ec) 81 mg PO QAM acetaminophen 500 mg Tablet 500 mg PO QID PRN (Reason: Pain) cholecalciferol (vitamin D3) [Vitamin D3] 50 mcg (2,000 unit) Tablet 50 mcg PO QAM tamsulosin 0.4 mg capsule 0.4 mg PO BEDTIME Paxlovid 300 mg (150 mg x 2)-100 mg tablets,dose pack See Rx Instructions .ROUTE .COMPLEX Qty: 30 0RF Rx Instructions: take TWO 150 mg tablets of nirmatrelvir with ONE 100 mg tablet of ritonavir twice daily for 5 days glipizide 10 mg Tablet 10 mg PO TID triamcinolone acetonide 0.1 % Ointment 1 applic TOPICAL BID PRN (Reason: Rash) lidocaine 5 % Adhesive Patch,Medicated See Rx Instructions .ROUTE .COMPLEX Rx Instructions: APPLY 1 PATCH TO SKIN SITE ONCE DAILY FOR LOCAL ANESTHESIA. APPLY PATCH AND PRESS FIRMLY FOR 10-15 SECONDS. KEEP ON FOR 12 HOURS THEN REMOVE PATCH FOR 12 HOURS. carbamide peroxide 6.5 % Drops See Rx Instructions .ROUTE .COMPLEX Rx Instructions: 1 drp into BOTH ear(s) every 4 weeks as needd for ear wax. lisinopril-hydrochlorothiazide 20-25 mg Tablet 1 tab PO QAM albuterol sulfate 90 mcg/actuation Hfa Aerosol Inhaler 2 puff INHALATION QID PRN (Reason: Shortness Of Breath) finasteride 5 mg Tablet 5 mg PO DAILY clindamycin phosphate 1 % Solution 1 applic TOPICAL BID PRN (Reason: ITCHY BUMPS) fenofibrate 160 mg Tablet 160 mg PO QAM Jardiance 25 mg Tablet 25 mg PO QAM Discharge Orders: Discharge ED (Routine); Ordered 10/25/23 Ordered By: Denis Shannon Referrals: Karlee Ashraf MD [Primary Care Provider] - Discharge Diet: Advance as tolerated Discharge Activity: Resume usual activity Patient Instructions: Opioid Safety, Pain Management Activity Restrictions/Additional Instructions: Activity Restrictions/Additional Instructions: Thank you for choosing [facility] for your healthcare needs today. Please realize that you were seen in the Emergency Department and that we are providing you with an emergency medical screening exam and this may not be a complete and all inclusive of all the testing and or medical work-up that you may need to determine your ailment or severity of your illness. It is very important that you follow-up as instructed with your Primary care provider or Specialist for additional evaluation and to discuss your medical treatment plan. You may return to the Emergency Department should you have concerns or if your condition changes or worsens in any way. It is important to follow the COVID isolation precautions as well as the COVID supportive care treatments as previously recommended. Coding Level of Care Code ED Commercial Escrow Assistant for Josie Cedeno
== END 2023-10-25 11:35 | disposition home or self-care (01) ==
PROVIDERS: Emergency Provider Internal Medicine; PCP Family Medicine
DX: U07.1 COVID-19 (principal); R05.1 Acute cough; Z79.82 Long term (current) use of aspirin; Z79.84 Long term (current) use of oral hypoglycemic drugs; Z72.0 Tobacco use; J44.9 Chronic obstructive pulmonary disease, unspecified; I10 Essential (primary) hypertension; Z99.81 Dependence on supplemental oxygen
CPT/HCPCS: 71045; 99283

== ENCOUNTER → 2023-12-26 14:39 | Outpatient (BNVA) | payer OTHER, SELFPAY | PROVIDERS: PCP Family Medicine; Visit Provider Podiatrist Foot & Ankle Surgery | DX: I73.9 Peripheral vascular disease, unspecified (principal); L60.3 Nail dystrophy | CPT/HCPCS: 11721 ==

== ENCOUNTER → 2024-03-05 14:16 | Outpatient (BNVA) | payer OTHER, SELFPAY | PROVIDERS: PCP Family Medicine; Visit Provider Podiatrist Foot & Ankle Surgery | DX: I73.9 Peripheral vascular disease, unspecified (principal); L60.3 Nail dystrophy | CPT/HCPCS: 11721 ==

== ENCOUNTER 2024-04-15 02:05 | Inpatient (IN) | payer OTHER, SELFPAY ==
[2024-04-15] VITALS (109 sets, daily range): BP systolic 80–190; BP diastolic 43–102; PULSE 75–129; RESP 13–31; TEMP 36.6–39.6; O2SAT 82–98; BMI 28.2
--- NOTE | 2024-04-15 02:31 | XRR_ITS ---
PROCEDURE INFORMATION: Exam: XR Abdomen Exam date and time: 04/15/2024 2:45 AM Age: 73 years old Clinical indication: Constipation; Prior surgery; Surgery date: 6+ months; Surgery type: Appy, hernia TECHNIQUE: Imaging protocol: Radiologic exam of the abdomen. Views: Frontal supine view of the abdomen. 1 View. COMPARISON: [place] [id number] 08/07/2023 10:13 PM FINDINGS: Gastrointestinal tract: No small bowel dilation or free air identified. Bones/joints: Unremarkable. XR/XR abdomen 1V* [id number] IMPRESSION: 1. No acute findings. 2. CT pending.
--- NOTE | 2024-04-15 02:31 | ED_ITS ---
Documented by User: Celestino Lopez DO 04/15/24 03:54 HPI - Male Genitourinary 2 General: Chief complaint: Urogenital-Male Stated complaint: constipation,unable to urinate Time Seen by Provider: 04/15/24 02:09 History of Present Illness: Patient presents to the ER by private vehicle for complaints of not being able to urinate and not being able to have a bowel movement. States he feels like he has to go pee. Patient states he just went to urinate before he left the house to come here. He says he is on Flomax 2 pills daily. Patient also says he cannot have a bowel movement and has backed up. Patient is on MiraLAX daily and then says he had a partial bowel movement right before he left to come here when he urinated. Nurse BladderScan the patient had 0 in his bladder patient says he feels like he needs to be. Review of Systems 2 General: Reports: 10 or more systems reviewed and unremarkable except in HPI and below PFSH ED 2 PFSH: Medical History Oxygen dependent COPD (chronic obstructive pulmonary disease) Arthritis Hypertension Bacteremia Diverticulitis Bacterial infection due to Bacteroides fragilis Diverticulitis Hidradenitis suppurativa H/O fracture of ankle BPH loc w urin obs/LUTS Elevated PSA Surgical History History of surgery on arm History of mandibular surgery Hx of hernia repair S/P appendectomy Family History Father , 77 CAD (coronary artery disease) Mother , 82 Cancer bREAST Social History Smoking and tobacco/nicotine status: current every day tobacco/nicotine user Alcohol intake: never Substance/Drug Use: never Marital status: / Current occupational status: retired Physical Exam 2 Neck/C-Spine: COMMON NORMALS: no JVD Chest: COMMONS NORMALS: normal inspection of the chest and normal palpation of entire chest wall Resp: COMMON NORMALS: normal respiratory effort, No retractions, No use of accessory muscles and clear to auscultation bilaterally AUSCULTATION: clear to auscultation bilaterally Cardio: COMMON NORMALS: no JVD, regular rate, regular rhythm, S1 normal heart sound present, S2 normal heart sound present, No gallops present (Cardio), No clicks present (Cardio), No murmurs present (Cardio) and No rub (Cardio) R ATE: regular rate RHYTHM: regular rhythm HEART SOUNDS: S1 normal heart sound present and S2 normal heart sound present GI: COMMON NORMALS: Normal to inspection, nondistended, normoactive bowel sounds present, Soft to palpation, non-tender, No hepatosplenomegaly present and no masses PALPATION: Yes Soft to palpation and Yes No hepatosplenomegaly present Course 2 Vital Signs: Vital signs: Vital Signs Temperature 103.3 F H 04/15/24 06:26 Pulse Rate 82 04/15/24 06:36 Respiratory Rate 18 04/15/24 06:36 Blood Pressure 120/56 04/15/24 06:36 Pulse Oximetry 98 04/15/24 06:36 Oxygen Delivery Me thod Room Air 04/15/24 06:36 Oxygen Flow Rate 4 04/15/24 06:26 MDM - Male Medical Decision Making Nursing bladder scan guide 0 however patient said he still felt like he needed to urinate extensively so he did straight cath him got approximate 150 cc of urine out. Differential Diagnosis Unlikely urinary tract infection, priapism, urethritis, epididymitis, genital herpes simplex, prostatitis, acute retention of urine or inguinal hernia Medical Records I reviewed the patient's medical records. Lab Data I reviewed the patient's lab results. 04/15/24 06:27 04/15/24 06:27 Radiology Impressions Abdomen X-Ray 04/15/24 02:31 IMPRESSION: 1. No acute findings. 2. CT pending. Abdomen/Pelvis CT 04/15/24 04:09 IMPRESSION: 1. Concern for cystitis with evidence of chronic bladder outlet obstruction. 2. No small bowel obstruction or obstructing ureteral stone identified. The colon is rather fecal filled. Severe sigmoid diverticulosis. 3. Bilateral perinephric fat stranding/scarring. 4. Numerous chronic findings above including small AAA, severe atherosclerosis, etc. Laboratory Results WBC 3.05 10^3/uL (3.29-11.43) L 04/15/24 06:27 RBC 5.32 10^6/uL (3.85-5.65) 04/15/24 06:27 Hgb 15.40 g/dL (11.27-16.99) 04/15/24 06: Hct 51.0 % (37-53) 04/15/24 06: MCV 95.9 fl (82-101) 04/15/24 06: MCH 28.9 pg (27-33) 04/15/24 06: MCHC 30.2 g/dL (30-55) 04/15/24 06: RDW 14.2 % (12.1-15.1) 04/15/24 06: Plt Count 294 10^3/cmm (157-399) 04/15/24 06: MPV 9.8 fL (7.4-10.4) 04/15/24: Neut % (Auto) 85.6 % 04/15/24 06: Lymph % (Auto) 11.5 % 04/15/24: [place] % (Auto) 1.0 % 04/15/24: Eos % (Auto) 1.3 % 04/15/24 06: Baso % (Auto) 0.3 % 04/15/24 06: Neut # (Auto) 2.61 10^3/uL (1.8-7.7) 04/15/24: Lymph # (Auto) 0.4 10^3/uL (0.8-4.8) L 04/15/24: [place] # (Auto) 0.0 10^3/uL (0.2-0.9) L 04/15/24: Eos # (Auto) 0.0 10^3/uL (0.0-0.8) 04/15/24 06: Baso # (Auto) 0.0 10^3/uL (0.0-0.1) 04/15/24: Nucleated RBC % (auto) 0 % 04/15/24: Nucleated RBCs # 0.0 /100WBC 04/15/24 06: Sodium 145 mmol/L (136-145) 04/15/24: Potassium 4.3 mmol/L (3.5-5.1) 04/15/24: Chloride 96 mmol/L (98-107) L 04/15/24 06:27 Carbon Dioxide 30 mmol/L (22-29) H 04/15/24 06:27 Anion Gap 23.3 (5-19) H 04/15/24 06:27 BUN 28 mg/dL (8-23) H 04/15/24 06:27 Creatinine 1.1 mg/dL (0.7-1.2) 04/15/24 06:27 GFR Calculation Not Reportable 04/15/24 06:27 Glucose 140 mg/dL (65-115) H 04/15/24 06:27 Calculated Osmolality 308 mOsm/kg (285-295) H 04/15/24 06:27 Lactic Acid 5.4 mmol/L (0.5-2.2) H* 04/15/24 06: Calcium 9.9 mg/dL (8.5-10.5) 04/15/24 06: Total Bilirubin 1.0 mg/dL (0.15-1.2) 04/15/24 06: AST 19 U/L (0-40) 04/15/24 06: ALT 24 U/L (0-41) 04/15/24 06:27 Alkaline Phosphatase 156 U/L (40-130) H 04/15/24 06:27 C-Reactive Protein 146.9 mg/L (0.0-4.9) H 04/15/24 06: Total Protein 7.7 g/dL (6.6-8.7) 04/15/24 06: Albumin 3.9 g/dL (3.5-5.2) 04/15/24 06: Globulin 3.8 g/dL (1.3-4.6) 04/15/24 06:27 Urine Color Yellow (Yellow) 04/15/24 02:57 Urine Appearance Cloudy (CLEAR) A 04/15/24 02:57 Urine pH 5 (5-7) 04/15/24 02:57 Ur Specific [place] 1.015 (1.005-1.030) 04/15/24 02:57 Urine Protein 3+ (Negative) H 04/15/24 02:57 Urine Glucose (UA) 4+ (Normal) H 04/15/24 02:57 Urine Ketones 1+ (Negative) H 04/15/24 02:57 Urine Blood 3+ (Negative) H 04/15/24 02:57 Urine Nitrate Negative (Negative) 04/15/24 02:57 Urine Bilirubin Neg (Negative) 04/15/24 02:57 Urine Urobilinogen Neg mg/dL (Negative) 04/15/24 02:57 Ur Leukocyte Esterase Trace (Negative) H 04/15/24 02:57 Urine RBC 80-100 /hpf (0-2) H 04/15/24 02:57 Urine WBC 5-10 /hpf (0-5) H 04/15/24 02:57 Ur Squamous Epith Cells None /hpf (0-5) 04/15/24 02:57 Amorphous Sediment Not Reportable 04/15/24 02:57 Urine Bacteria 4+ /hpf (NONE) H 04/15/24 02:57 Urine Mucus 3+ /hpf 04/15/24 02:57 All radiology interpretation(s) finalized by discharge Discharge Plan Discharge Patient Disposition: Admitted As Inpatient Clinical Impression: Urinary tract infection Qualifiers: Urinary tract infection type: acute cystitis Hematuria presence: with hematuria Qualified Code(s): N30.01 - Acute cystitis with hematuria Sepsis Qualifiers: Sepsis type: sepsis due to unspecified organism Sepsis acute organ dysfunction status: without acute organ dysfunction Qualified Code(s): A41.9 - Sepsis, unspecified organism Condition: Stable Coding Level of Care Code ED Agricultural Science Professor for Chg Fwd Documented by User: Holly Kim MD 04/15/24 07:42 HPI - Male Genitourinary 2 General: Chief complaint: Urogenital-Male Stated complaint: constipation,unable to urinate Time Seen by Provider: 04/15/24 02:09 PFS ED 2 PFSH: Medical History Oxygen dependent COPD (chronic obstructive pulmonary disease) Arthritis Hypertension Bacteremia Diverticulitis Bacterial infection due to Bacteroides fragilis Diverticulitis Hidradenitis suppurativa H/O fracture of ankle BPH loc w urin obs/LUTS Elevated PSA Surgical History History of surgery on arm History of mandibular surgery Hx of hernia repair S/P appendectomy Family History Father , 77 CAD (coronary artery disease) Mother , 82 Cancer bREAST Social History Smoking and tobacco/nicotine status: current every day tobacco/nicotine user Alcohol intake: never Substance/Drug Use: never Marital status: / Current occupational status: retired Course 2 Vital Signs: Vital signs: Vital Signs Temperature 103.3 F H 04/15/24 06:26 Pulse Rate 82 04/15/24 06:36 Respiratory Rate 18 04/15/24 06:36 Blood Pressure 120/56 04/15/24 06:36 Pulse Oximetry 98 04/15/24 06:36 Oxygen Delivery Me thod Room Air 04/15/24 06:36 Oxygen Flow Rate 4 04/15/24 06:26 MDM - Male Medical Decision Making Nursing bladder scan guide 0 however patient said he still felt like he needed to urinate extensively so he did straight cath him got approximate 150 cc of urine out. Patient care was transitioned to mo at shift change at [address] of the abdomen were pending. No lab work had been ordered at that time. Other than the urinalysis. Patient at around 630 developed rigors and had developed a temperature of 103.3. At that time I ordered a septic workup. I had just reviewed CT of the abdomen which just showed some concern for cystitis with inflammation of the bladder. No stones were seen. He does have some chronic diverticulosis. Other chronic findings were noted by the radiologist. CT of the abdomen pelvis without contrast: concern for cystitis with inflammation of the bladder. No stones were seen. He does have some chronic diverticulosis. Other chronic findings were noted by the radiologist. Laboratory workup: I reviewed and interpreted lab work personally. Patient has leukopenia but has a left shift of 86%. He has a very elevated CRP. Lactate was elevated at 5.5. At this point I ordered another liter and a half of fluids for the septic bolus. I had already given Rocephin. Patient had 4+ bacteria in his urine. Only 5-10 whites with numerous reds. However nursing says when they cathed him it was a bit traumatic and he had some bleeding at that time. Assessment and plan: Urinary tract infection Sepsis ?Patient unfolded as a possible sepsis while here in the emergency room. Initially looked good but developed high fever at which time I ordered septic protocol including a lactate which turned out to be 5. Source seems to be urine so have not broadened past the Rocephin I gave originally. Hospitalist can do that. -2.5 L normal saline bolus. Fluid volumes based on ideal body weight. -Broad-spectrum antibiotics were administered. -Sepsis quality measures. -Lactic acid with a reflex was ordered. -Blood cultures were ordered. -I discussed the patient with the hospitalist on-call who is admitting the patient. - Discussed findings and plan with patient. Answered any questions. - All laboratory values were reviewed and interpreted personally by myself, the ER physician - All imaging was reviewed and interpreted personally by myself, the ER physician. - Evaluation and treatment of this problem were appropriate in the emergency setting -I spent a total of >35 minutes of critical care time managing the patient, independent of any other practitioner. -The time involved in the performance of separately reportable procedures was not counted towards critical care time. Lab Data 04/15/24 06:27 04/15/24 06:27 Radiology Impressions Abdomen X-Ray 04/15/24 02:31 IMPRESSION: 1. No acute findings. 2. CT pending. Abdomen/Pelvis CT 04/15/24 04:09 IMPRESSION: 1. Concern for cystitis with evidence of chronic bladder outlet obstruction. 2. No small bowel obstruction or obstructing ureteral stone identified. The colon is rather fecal filled. Severe sigmoid diverticulosis. 3. Bilateral perinephric fat stranding/scarring. 4. Numerous chronic findings above including small AAA, severe atherosclerosis, etc. Laboratory Results WBC 3.05 10^3/uL (3.29-11.43) L 04/15/24 06: RBC 5.32 10^6/uL (3.85-5.65) 04/15/24 06: Hgb 15.40 g/dL (11.27-16.99) 04/15/24 06: Hct 51.0 % (37-53) 04/15/24 06: MCV 95.9 fl (82-101) 04/15/24 06: MCH 28.9 pg (27-33) 04/15/24 06: MCHC 30.2 g/dL (30-55) 04/15/24 06: RDW 14.2 % (12.1-15.1) 04/15/24 06: Plt Count 294 10^3/cmm (157-399) 04/15/24 06: MPV 9.8 fL (7.4-10.4) 04/15/24 06: Neut % (Auto) 85.6 % 04/15/24 06: Lymph % (Auto) 11.5 % 04/15/24 06: [place] % (Auto) 1.0 % 04/15/24 06: Eos % (Auto) 1.3 % 04/15/24 06: Baso % (Auto) 0.3 % 04/15/24 06: Neut # (Auto) 2.61 10^3/uL (1.8-7.7) 04/15/24 06: Lymph # (Auto) 0.4 10^3/uL (0.8-4.8) L 04/15/24 06: [place] # (Auto) 0.0 10^3/uL (0.2-0.9) L 04/15/24 06: Eos # (Auto) 0.0 10^3/uL (0.0-0.8) 04/15/24 06: Baso # (Auto) 0.0 10^3/uL (0.0-0.1) 04/15/24 06: Nucleated RBC % (auto) 0 % 04/15/24 06: Nucleated RBCs # 0.0 /100WBC 04/15/24 06: Sodium 145 mmol/L (136-145) 04/15/24 06: Potassium 4.3 mmol/L (3.5-5.1) 04/15/24 06: Chloride 96 mmol/L (98-107) L 04/15/24 06: Carbon Dioxide 30 mmol/L (22-29) H 04/15/24 06:27 Anion Gap 23.3 (5-19) H 04/15/24 06:27 BUN 28 mg/dL (8-23) H 04/15/24 06: Creatinine 1.1 mg/dL (0.7-1.2) 04/15/24 06: GFR Calculation Not Reportable 04/15/24 06:27 Glucose 140 mg/dL (65-115) H 04/15/24 06:27 Calculated Osmolality 308 mOsm/kg (285-295) H 04/15/24 06:27 Lactic Acid 5.4 mmol/L (0.5-2.2) H* 04/15/24 06:27 Calcium 9.9 mg/dL (8.5-10.5) 04/15/24 06: Total Bilirubin 1.0 mg/dL (0.15-1.2) 04/15/24 06: AST 19 U/L (0-40) 04/15/24 06: ALT 24 U/L (0-41) 04/15/24 06: Alkaline Phosphatase 156 U/L (40-130) H 04/15/24 06: C-Reactive Protein 146.9 mg/L (0.0-4.9) H 04/15/24 06:27 Total Protein 7.7 g/dL (6.6-8.7) 04/15/24 06: Albumin 3.9 g/dL (3.5-5.2) 04/15/24 06: Globulin 3.8 g/dL (1.3-4.6) 04/15/24 06:27 Urine Color Yellow (Yellow) 04/15/24 02:57 Urine Appearance Cloudy (CLEAR) A 04/15/24 02:57 Urine pH 5 (5-7) 04/15/24 02:57 Ur Specific [place] 1.015 (1.005-1.030) 04/15/24 02:57 Urine Protein 3+ (Negative) H 04/15/24 02:57 Urine Glucose (UA) 4+ (Normal) H 04/15/24 02:57 Urine Ketones 1+ (Negative) H 04/15/24 02:57 Urine Blood 3+ (Negative) H 04/15/24 02:57 Urine Nitrate Negative (Negative) 04/15/24 02:57 Urine Bilirubin Neg (Negative) 04/15/24 02:57 Urine Urobilinogen Neg mg/dL (Negative) 04/15/24 02:57 Ur Leukocyte Esterase Trace (Negative) H 04/15/24 02:57 Urine RBC 80-100 /hpf (0-2) H 04/15/24 02:57 Urine WBC 5-10 /hpf (0-5) H 04/15/24 02:57 Ur Squamous Epith Cells None /hpf (0-5) 04/15/24 02:57 Amorphous Sediment Not Reportable 04/15/24 02:57 Urine Bacteria 4+ /hpf (NONE) H 04/15/24 02:57 Urine Mucus 3+ /hpf 04/15/24 02:57 Discharge Plan Discharge Patient Disposition: Admitted As Inpatient Clinical Impression: Urinary tract infection Qualifiers: Urinary tract infection type: acute cystitis Hematuria presence: with hematuria Qualified Code(s): N30.01 - Acute cystitis with hematuria Sepsis Qualifiers: Sepsis type: sepsis due to unspecified organism Sepsis acute organ dysfunction status: without acute organ dysfunction Qualified Code(s): A41.9 - Sepsis, unspecified organism Condition: Stable Coding Level of Care Code ED Agricultural Science Professor for Josie Cedeno
[2024-04-15 03:48] LABS: Add Urine Microscopic? YES; Bilirubin Urine Neg (Negative); Blood Urine 3+ (Negative); Glucose Urine UA 4+ (Normal); Ketones Urine 1+ (Negative); Leukocyte Esterase Urine Trace (Negative); Nitrate Urine Negative (Negative); Protein Urine 3+ (Negative); Specific Gravity, Urine 1.015 (1.005-1.030); Urine Appearance Cloudy (CLEAR); Urine Color Yellow (Yellow); Urobilinogen Urine Neg (Negative); pH Urine 5 (5-7)
[2024-04-15 03:51] LABS: Add Urine Culture? Yes; Bacteria Urine 4+ /hpf; Mucus Urine 3+ /hpf; RBC Urine 80-100 /hpf (0-2)
--- NOTE | 2024-04-15 04:09 | CTR_ITS ---
PROCEDURE INFORMATION: Exam: CT Abdomen And Pelvis Without Contrast Exam date and time: 04/15/2024 4:31 AM Age: 73 years old Clinical indication: Other: Hematuria; Prior surgery; Surgery date: 6+ months; Surgery type: Appy, hernia; Additional info: Hematuria, retention, constipation TECHNIQUE: Imaging protocol: Computed tomography of the abdomen and pelvis without contrast. Radiation optimization: All CT scans at this facility use at least one of these dose optimization techniques: automated exposure control; mA and/or kV adjustment per patient size (includes targeted exams where dose is matched to clinical indication); or iterative reconstruction. COMPARISON: [place] [id number] 08/07/2023 10:13 PM RADIATION DOSE METRICS: Total DLP (mGy-cm): 709.7 FINDINGS: Lungs: Left lung base nodule measures about 5 mm. This can be followed up in 1 year. See the 02/14/[address] Diaphragm: Tiny hiatal hernia. Liver: Liver is mildly enlarged and steatotic. Gallbladder and biliary ducts: No calcified gallstones or biliary dilation identified. Pancreas: Unremarkable with no suspicious mass. No ductal dilation. Spleen: The spleen is not enlarged. No suspicious mass is noted. Adrenal glands: Normal. No mass. Kidneys and ureters: Bilateral perinephric fat stranding. Minimal left nephrolithiasis. No hydronephrosis. Minimal bilateral renal collecting system fullness of uncertain significance. Stomach and bowel: Severe sigmoid diverticulosis. The colon is rather fecal filled. No small bowel obstruction, abscess or free air. Appendix: No evidence of appendicitis. Intraperitoneal space: No abscess or free air. Vasculature: The abdominal aorta measures up to about 4.1 cm. Small pelvic phleboliths. Advanced diffuse vascular calcification noted. Lymph nodes: No enlarged lymph nodes. Urinary bladder: There is bladder wall thickening. Multiple bladder diverticula measure up to about 2.8 cm. Reproductive: Large prostate. Bones/joints: No acute fracture. Soft tissues: No acute or suspicious finding noted. Small fat in left inguinal ring. CT/CT kidney stone [id number] IMPRESSION: 1. Concern for cystitis with evidence of chronic bladder outlet obstruction. 2. No small bowel obstruction or obstructing ureteral stone identified. The colon is rather fecal filled. Severe sigmoid diverticulosis. 3. Bilateral perinephric fat stranding/scarring. 4. Numerous chronic findings above including small AAA, severe atherosclerosis, etc.
--- NOTE | 2024-04-15 06:30 | XRR_ITS ---
PROCEDURE INFORMATION: Exam: XR Chest Exam date and time: 04/15/2024 6:46 AM Age: 73 years old Clinical indication: Fever TECHNIQUE: Imaging protocol: Radiologic exam of the chest. Views: 1 view. COMPARISON: CT lung screening [id number] 02/14/2024 12:06 PM FINDINGS: Lungs: Hazy density overlying left hemidiaphragm appears improved from . Stable small calcified nodule in the right lung. No acute pneumonia or edema evident. Pleural spaces: No pleural effusion identified. Heart/Mediastinum: Cardiomediastinal silhouette is stable.. Bones/joints: No acute osseous abnormality identified. XR/XR chest 1V portable [id number] IMPRESSION: Previously noted hazy density over the left hemidiaphragm appears improved. No acute cardiopulmonary abnormality identified.
[2024-04-15 06:38] LABS: Basophils % 0.3 %; Eosinophils % 1.3 %; Lymphocytes # 0.4 10^3/uL (0.8-4.8); Lymphocytes % 11.5 %; Mean Corpuscular HGB Conc 30.2 g/dL (30-55); Mean Corpuscular Hemoglobin 28.9 pg (27-33); Mean Corpuscular Volume 95.9 fl (82-101); Mean Platelet Volume 9.8 fL (7.4-10.4); Neutrophils # 2.61 10^3/uL (1.8-7.7); Neutrophils % 85.6 %; Nucleated Red Blood Cells % 0 %; Platelet Count 294 10^3/cmm (157-399); Red Blood Count 5.32 10^6/uL (3.85-5.65); Red Cell Distribution Width 14.2 % (12.1-15.1); White Blood Count 3.05 10^3/uL (3.29-11.43)
[2024-04-15] MEDS: sodium chloride 0.9% 1,000 ML 999 ML IV ×2 (06:38→07:59)
--- NOTE | 2024-04-15 06:40 | PC.NURSE ---
at 0530 this nurse emptied the pts commode and notice some blood on the napkins in the stool. the pt stated that he began to bleed from his penis when urinating. pt began to shake and was c/o being cold. pts temp was taken and reported to the ED physician.
[2024-04-15 06:58] LABS: Alanine Aminotransferase 24 U/L (0-41); Albumin Level 3.9 g/dL (3.5-5.2); Alkaline Phosphatase 156 U/L (40-130); Anion Gap 23.3 (5-19); Aspartate Amino Transferase 19 U/L (0-40); Blood Urea Nitrogen 28 mg/dL (8-23); C Reactive Protein 146.9 mg/L (0.0-4.9); Calcium 9.9 mg/dL (8.5-10.5); Carbon Dioxide 30 mmol/L (22-29); Chloride 96 mmol/L (98-107); Creatinine Clr Calc Pharmacy 59.2439; Globulin 3.8 g/dL (1.3-4.6); Glucose 140 mg/dL (65-115); Osmolality Calculated 308 mOsm/kg (285-295); Potassium 4.3 mmol/L (3.5-5.1); Sodium 145 mmol/L (136-145); Total Protein 7.7 g/dL (6.6-8.7)
[2024-04-15 07:07] LABS: Lactic Sepsis W/Reflex 5.4 mmol/L (0.5-2.2)
--- NOTE | 2024-04-15 07:42 | PC.PHAR ---
PT IS [facility] L[facility] 04/15/24 7:42AM
[2024-04-15] MEDS: cefTRIAXone 1,000 MG in sodium chloride 0.9% (plus) 50 ML 100 MG IV (08:01)
[2024-04-15 08:22] LABS: Reflex Lactate Order REFLEX LACTIC ORDERD
[2024-04-15 09:26] LABS: Lactic Acid level (Lactate) 1.8 mmol/L (0.5-2.2)
[2024-04-15] MEDS: sodium chloride 0.9% 500 ML 999 ML IV (09:33)
--- NOTE | 2024-04-15 12:55 | P.HP_ITS ---
Providers/Chief Complaint 2 Admitting Physician: Minh Brantley Primary Care Provider: Karlee Ashraf MD Chief Complaint: constipation,unable to urinate History of Present Illness 73-year-old gentleman came in for evaluation to the emergency department after having difficulties urinating with urinary urgency, history of BPH. Also reporting difficulty moving his bowels. Review of Systems 2 Const: Denies: fever(s), chills, body aches or malaise ENMT: Denies: throat pain Card: Denies: chest pain, edema, pre-syncope or dyspnea on exertion Resp: Denies: dyspnea, productive cough, change in phlegm color or hemoptysis GI: Denies: abdominal pain, nausea, vomiting, diarrhea, constipation, hematochezia or melena : Denies: flank pain, difficulty urinating, urinary frequency or hematuria Musc: Denies: back pain, joint swelling or joint redness Skin/Breast: Denies: rash or new lesions Neuro: Denies: headache(s), numbness in extremities, weakness in extremities, dizziness, confusion or seizure-like activity Medications/Allergies Home Medications Medication Instructions Recorded Confirmed Last Taken Type acetaminophen 500 mg tablet 500 mg PO QID PRN Pain 01/04/22 04/15/24 Unknown History aspirin 81 mg tablet,delayed 81 mg PO QAM 01/04/22 04/15/24 04/14/24 History release cholecalciferol (vitamin D3) 50 50 mcg PO QAM 01/04/22 04/15/24 04/14/24 History mcg (2,000 unit) tablet (Vitamin D3) tamsulosin 0.4 mg capsule 0.4 mg PO BEDTIME 01/04/22 04/15/24 04/14/24 History Custom Molded Accommadative #1 ea 12/18/22 04/15/24 Unknown Rx Orthotics with Metatarsal Pads albuterol sulfate 90 mcg/actuation 2 puff inhalation QID PRN 10/25/23 04/15/24 Unknown History aerosol inhaler Shortness Of Breath carbamide peroxide 6.5 % ear drops 4 drp otic (ear) .[id number] PRN Ear 10/25/23 04/15/24 Unknown History Wax clindamycin phosphate 1 % topical 1 applic topical BID PRN ITCHY 10/25/23 04/15/24 Unknown History solution BUMPS empagliflozin 25 mg tablet 25 mg PO QAM 10/25/23 04/15/24 04/14/24 History (Jardiance) fenofibrate 160 mg tablet 160 mg PO QAM 10/25/23 04/15/24 04/14/24 History glipizide 10 mg tablet 10 mg PO TID 10/25/23 04/15/24 04/14/24 History lidocaine 5 % topical patch See Rx Instructions .Route .COMPLEX 10/25/23 04/15/24 Unknown History lisinopril 20 1 tab PO QAM 10/25/23 04/15/24 04/14/24 History mg-hydrochlorothiazide 25 mg tablet triamcinolone acetonide 0.1 % 1 applic topical BID PRN Rash 10/25/23 04/15/24 Unknown History topical ointment apple cider vinegar 300 mg tablet 300 mg PO DAILY 04/15/24 04/15/24 04/14/24 History dextromethorphan-guaifenesin 10 10 ml PO QID PRN COUGH/CONGESTION 04/15/24 04/15/24 Unknown History mg-100 mg/5 mL oral syrup ezetimibe 10 mg tablet 10 mg PO DAILY 04/15/24 04/15/24 04/14/24 History guaifenesin 400 mg tablet 400 mg PO BID 04/15/24 04/15/24 04/14/24 History srztfebv-sgf-npedmtm 400 mcg 1 tab PO DAILY 04/15/24 04/15/24 04/14/24 History DFE-vit K 120 mcg-herb no.334 tablet (Alive Men's Ultra Potency) mupirocin 2 % topical ointment 1 applic topical BID 04/15/24 04/15/24 04/14/24 History nicotine (polacrilex) 2 mg buccal 2 mg buccal Q4H PRN CESSATION 04/15/24 04/15/24 04/14/24 History lozenge nicotine 14 mg/24 hr daily 1 patch transdermal QAM 04/15/24 04/15/24 Unknown History transdermal patch nicotine 21 mg/24 hr daily 1 patch transdermal DAILY 04/15/24 04/15/24 Unknown History transdermal patch nicotine 7 mg/24 hr daily 1 patch transdermal DAILY 04/15/24 04/15/24 Unknown History transdermal patch Allergies Allergy/AdvReac Type Severity Reaction Status Date / Time atorvastatin [From Lipitor] Allergy NA Verified 04/15/24 02:14 baclofen Allergy Unknown Verified 04/15/24 02:14 cyclobenzaprine Allergy NA Verified 04/15/24 02:14 [From Flexeril] pravastatin Allergy NA Verified 04/15/24 02:14 rosuvastatin [From Crestor] Allergy NA Verified 04/15/24 02:14 PFSH Acute 2 PFSH: Medical History Oxygen dependent COPD (chronic obstructive pulmonary disease) Arthritis Hypertension Bacteremia Diverticulitis Bacterial infection due to Bacteroides fragilis Diverticulitis Hidradenitis suppurativa H/O fracture of ankle BPH loc w urin obs/LUTS Elevated PSA Surgical History History of surgery on arm History of mandibular surgery Hx of hernia repair S/P appendectomy Family History Father , 77 CAD (coronary artery disease) Mother , 82 Cancer bREAST Social History Smoking and tobacco/nicotine status: current every day tobacco/nicotine user Alcohol intake: never Substance/Drug Use: never Marital status: / Current occupational status: retired Vitals/I&O/Wt Last Vital Signs Temp 103.3 F H 04/15/24 06:26 Pulse 100 04/15/24 08:30 Resp 24 H 04/15/24 08:30 BP 104/58 04/15/24 08:30 Pulse Ox 93 04/15/24 08:30 O2 Del Method Nasal Cannula 04/15/24 09:04 O2 Flow Rate 4 04/15/24 06:26 04/14/24 04/15/24 04/15/24 22:59 06:59 14:59 Intake Total 2550 / 2550 Balance 2550 / 2550 Weight last 48 hrs Weight 79 kg Weight 79.379 kg Physical Exam 2 Const: COMMON NORMALS: patient oriented x3 and alert GENERAL APPEARANCE: c ooperative ORIENTATION/CONSCIOUSNESS: Yes awake HENMT: COMMON NORMALS: oropharynx normal Neck/C-Spine: COMMON NORMALS: no JVD Resp: COMMON NORMALS: normal respiratory effort and clear to auscultation bilaterally AUSCULTATION: clear to auscultation bilaterally Cardio: COMMON NORMALS: no JVD, regular rhythm, S1 normal heart sound present, S2 normal heart sound present and No murmurs present (Cardio) RHYTHM: regular rhythm HEART SOUNDS: S1 normal heart sound present and S2 normal heart sound present GI: COMMON NORMALS: Normal to inspection, nondistended, normoactive bowel sounds present, Soft to palpation and non-tender PALPATION: Yes Soft to palpation Extremity: COMMON NORMALS: no joint enlargement and no pedal edema Neuro: COMMON NORMALS: patient oriented x3 and moves all extremities S ENSORIUM/ORIENTATION: Yes alert Skin: COMMON NORMALS: no rashes or lesions noted GENERAL SKIN EXAM: no rashes or lesions noted Sepsis: Is patient septic: Yes Focused sepsis exam performed: Yes F ocused sepsis exam: No mottling, no cyanosis, good capillary refill. Data 04/15/24 06:27 04/15/24 06:27 Micro: Microbiology 04/15/24 07:54 Blood Culture - Preliminary Blood SPECIMEN COLLECTED 04/15/24 06:34 Blood Culture - Preliminary Blood SPECIMEN COLLECTED A&P Assessment and plan (1) Sepsis: Reviewed vitals, CBC, CMP, UA, chest x-ray, abdominal x-ray, CT abdomen pelvis, ER note, discussed with ER provider. Presenting with sepsis, fever 103.3, WBC 3.05, lactic acid 5.4, severe sepsis, also with mild acute kidney injury, creatinine up to 1.1, BUN 28, so far without urine output, also developed hematuria after straight cath in ER. Currently with some urinary retention, urinary catheter is being placed. Initial admission to intensive care unit given concern for septic shock. Continue empiric antibiotic coverage with Zosyn. Follow-up blood culture, urine culture. Clear liquid diet for now. Qualifiers: Sepsis acute organ dysfunction status: without acute organ dysfunction Sepsis type: sepsis due to unspecified organism Qualified Code(s): A41.9 - Sepsis, unspecified organism (2) Urinary tract infection: Complicated urinary tract infection with sepsis. On review of CT abdomen pelvis with chronic bladder outlet obstruction likely contributing, otherwise without obstruction or show bowel stone. Noted bilateral perinephric fat stranding/scarring. Qualifiers: Hematuria presence: with hematuria Urinary tract infection type: acute cystitis Qualified Code(s): N30.01 - Acute cystitis with hematuria (3) Hematuria: Hematuria after straight cath for urine sample. Currently he is starting to feel like he is retaining urine. Place urinary catheter. Irrigate as needed for clots. Monitor hematuria. Three-way catheter, CBI if needed. Plan COPD: Monitor oxygenation. Not in exacerbation. HTN: Monitor blood pressures. Hold off antihypertensives for now given soft blood pressure. Severe sepsis. Diverticulosis BPH: Continue Flomax Small AAA: Incidentally seen on CT scan. Will need to follow-up. Attestations 2 Medical Necessity Statement*: Admission of over 2 midnights anticipated for assessment and management of severe sepsis, concern for septic shock with complicated UTI, hematuria, urinary retention. Diagnoses Sepsis A41.9 Sepsis acute organ dysfunction status: without acute organ dysfunction Sepsis type: sepsis due to unspecified organism Urinary tract infection N30.01 Hematuria presence: with hematuria Urinary tract infection type: acute cystitis Hematuria R31.9
[2024-04-15] MEDS: piperacillin-tazobactam 3.375 GM in sodium chloride 0.9% (plus) 50 ML IV ×2 (13:25→21:22)
[2024-04-15 16:58] LABS: Glucose Point of Care 118 mg/dL (70-110)
[2024-04-15 20:29] LABS: Glucose Point of Care 108 mg/dL (70-110)
[2024-04-15] MEDS: tamsulosin 0.4 mg Capsule 0.400000000000000022 MG PO (21:22)
--- NOTE | 2024-04-15 22:31 | PC.NURSE ---
When asked if pt would wear SCD's to help with prevention of clots, he refused stating he did not need them.
[2024-04-16] VITALS (7 sets, daily range): BP systolic 92–120; BP diastolic 50–69; PULSE 65–74; RESP 16–19; TEMP 36.4–36.8; O2SAT 92–95
[2024-04-16] MEDS: piperacillin-tazobactam 3.375 GM in sodium chloride 0.9% (plus) 50 ML IV ×3 (05:51→21:15)
[2024-04-16] MEDS: aspirin 81 mg EC Tablet PO (05:51)
[2024-04-16 05:54] LABS: Hematocrit 39.7 % (37-53); Mean Corpuscular HGB Conc 30.7 g/dL (30-55); Mean Corpuscular Volume 94.3 fl (82-101); Mean Platelet Volume 10.3 fL (7.4-10.4); Platelet Count 301 10^3/cmm (157-399); Red Blood Count 4.21 10^6/uL (3.85-5.65); Red Cell Distribution Width 14.5 % (12.1-15.1)
[2024-04-16 06:13] LABS: Alanine Aminotransferase 17 U/L (0-41); Albumin Level 3.1 g/dL (3.5-5.2); Alkaline Phosphatase 60 U/L (40-130); Anion Gap 13.4 (5-19); Aspartate Amino Transferase 17 U/L (0-40); Blood Urea Nitrogen 32 mg/dL (8-23); Calcium 8.2 mg/dL (8.5-10.5); Carbon Dioxide 32 mmol/L (22-29); Chloride 98 mmol/L (98-107); Creatinine Clr Calc Pharmacy 59.6581; Glucose 85 mg/dL (65-115); Magnesium 2.2 mg/dL (1.7-2.3); Osmolality Calculated 294 mOsm/kg (285-295); Potassium 4.4 mmol/L (3.5-5.1); Sodium 139 mmol/L (136-145); Total Bilirubin 0.4 mg/dL (0.15-1.2); Total Protein 6.1 g/dL (6.6-8.7)
[2024-04-16 06:31] LABS: Glucose Point of Care 93 mg/dL (70-110)
[2024-04-16 06:49] LABS: Absolute Eosinophils 0.2 10^3/cmm (0.0-0.7); Absolute Neutrophil 17.4 10^3/cmm (1.4-6.5); Absolute Segmented Neutrophil 13.1 10/cmm (1.6-7.1); Band Neutrophils Absolute 4.2 10^3/cmm (0.0-1.2); Eosinophils 1 %; Lymphocytes 5 %; Monocytes Absolute 1.6 10^3/cmm (0.1-0.6); Platelet Estimate Normal (Normal); Segmented Neutrophils 65 %; Slide Review Slide Review Perform; Total Cells Counted 100 (0-100)
[2024-04-16] MEDS: nicotine 14 mg Patch 1 PATCH TRANSDERMA (09:10)
[2024-04-16] MEDS: acetaminophen 325 mg Tablet 650 MG PO (09:50)
[2024-04-16 12:18] LABS: Glucose Point of Care 116 mg/dL (70-110)
[2024-04-16 16:13] LABS: Glucose Point of Care 138 mg/dL (70-110)
[2024-04-16 20:23] LABS: Glucose Point of Care 132 mg/dL (70-110)
--- NOTE | 2024-04-16 20:33 | P.PN_ITS ---
Subjective 2 Subjective: He is feeling better. Having some abdominal bloating/gas. Vitals/I&O/Wt Last Vital Signs Temp 97.9 F 04/16/24 19:58 Pulse 74 04/16/24 19:58 Resp 19 H 04/16/24 19:58 BP 113/67 04/16/24 19:58 Pulse Ox 94 04/16/24 19:58 O2 Del Method Nasal Cannula 04/16/24 19:58 O2 Flow Rate 2 04/16/24 08:24 04/16/24 04/16/24 04/16/24 06:59 14:59 22:59 Intake Total 410 / 3370 1350 / 1350 410 / 1760 Output Total 300 / 750 350 / 350 1150 / 1500 Balance 110 / 2620 1000 / 1000 -740 / 260 Weight last 48 hrs Weight 80.603 kg Weight 79 kg Weight 79.379 kg Physical Exam 2 Const: COMMON NORMALS: patient oriented x3 and alert GENERAL APPEARANCE: c ooperative ORIENTATION/CONSCIOUSNESS: Yes awake HENMT: COMMON NORMALS: oropharynx normal Neck/C-Spine: COMMON NORMALS: no JVD Resp: COMMON NORMALS: normal respiratory effort and clear to auscultation bilaterally AUSCULTATION: clear to auscultation bilaterally Cardio: COMMON NORMALS: no JVD, regular rhythm, S1 normal heart sound present, S2 normal heart sound present and No murmurs present (Cardio) RHYTHM: regular rhythm HEART SOUNDS: S1 normal heart sound present and S2 normal heart sound present GI: COMMON NORMALS: Normal to inspection, nondistended, normoactive bowel sounds present, Soft to palpation and non-tender PALPATION: Yes Soft to palpation Extremity: COMMON NORMALS: no joint enlargement and no pedal edema Neuro: COMMON NORMALS: patient oriented x3 and moves all extremities S ENSORIUM/ORIENTATION: Yes alert Skin: COMMON NORMALS: no rashes or lesions noted GENERAL SKIN EXAM: no rashes or lesions noted Urinary Catheter Management: [place]: Cath Placed During This Visit: yes Reason for Continuing Indwelling Catheter: Acute Urinary Retention or Obstruction Urinary Catheter Date of Insertion: 04/15/24 Urinary Catheter Time of Insertion: 14:15 Data 04/16/24 05:28 04/16/24 05:28 Micro: Microbiology 04/15/24 02:57 Urine Culture - Preliminary Urine,Clean Catch Gram Negative Rods 04/15/24 07:54 Blood Culture - Preliminary Blood NEGATIVE TO DATE 04/15/24 06:34 Blood Culture - Preliminary Blood A&P Assessment and plan (1) Sepsis: Worsening leukocytosis today severe up to 20.2. Reviewed vitals, CBC, CMP, magnesium. Reviewed urine culture, blood culture. Urine culture with more than 100,000 GNR. Continue Zosyn. Follow-up culture. Discussed with nursing, human services case manager. Clear liquid diet for now. Qualifiers: Sepsis acute organ dysfunction status: without acute organ dysfunction Sepsis type: sepsis due to unspecified organism Qualified Code(s): A41.9 - Sepsis, unspecified organism (2) Urinary tract infection: Complicated urinary tract infection with sepsis. Worsening leukocytosis. Continue Zosyn. Follow-up urine culture. Possible complicated UTI with resistant organism. On review of CT abdomen pelvis with chronic bladder outlet obstruction likely contributing, otherwise without obstruction or show bowel stone. Noted bilateral perinephric fat stranding/scarring. Qualifiers: Hematuria presence: with hematuria Urinary tract infection type: acute cystitis Qualified Code(s): N30.01 - Acute cystitis with hematuria (3) Hematuria: Resolved. Hematuria after straight cath for urine sample. Currently he is starting to feel like he is retaining urine. Place urinary catheter. Irrigate as needed for clots. Monitor hematuria. Three-way catheter, CBI if needed. Plan COPD: Monitor oxygenation. Not in exacerbation. HTN: Monitor blood pressures. Hold off antihypertensives for now given soft blood pressure. Severe sepsis. Diverticulosis BPH: Continue Flomax Smoking addiction: Add nicotine patch. Small AAA: Incidentally seen on CT scan. Will need to follow-up. Attestations 2 Medical Necessity Statement*: Admission of over 2 midnights anticipated for assessment and management of severe sepsis, concern for septic shock with complicated UTI, urinary retention. and High MDM includes number and complexity of problems actively addressed during encounter and amount and/or complexity of data reviewed/ordered [ resulted lab(s)/test(s), ordered lab(s)/test(s) and other healthcare professional discussion] as documented Diagnoses Sepsis A41.9 Sepsis acute organ dysfunction status: without acute organ dysfunction Sepsis type: sepsis due to unspecified organism Urinary tract infection N30.01 Hematuria presence: with hematuria Urinary tract infection type: acute cystitis Hematuria R31.9
[2024-04-16] MEDS: tamsulosin 0.4 mg Capsule 0.400000000000000022 MG PO (21:15)
[2024-04-17] VITALS: BP 121/62; PULSE 72; RESP 18; TEMP 36.7; O2SAT 95
[2024-04-17 03:47] VITALS: BP 127/58; PULSE 71; RESP 18; TEMP 36.6; O2SAT 95
[2024-04-17] MEDS: aspirin 81 mg EC Tablet PO (05:45)
[2024-04-17] MEDS: piperacillin-tazobactam 3.375 GM in sodium chloride 0.9% (plus) 50 ML IV (05:45)
[2024-04-17 05:57] LABS: Basophils # 0.1 10^3/uL (0.0-0.1); Basophils % 0.4 %; Eosinophils # 0.3 10^3/uL (0.0-0.8); Eosinophils % 1.8 %; Hematocrit 40.6 % (37-53); Lymphocytes # 0.8 10^3/uL (0.8-4.8); Lymphocytes % 5.5 %; Mean Corpuscular HGB Conc 30.8 g/dL (30-55); Mean Corpuscular Hemoglobin 29.2 pg (27-33); Mean Corpuscular Volume 94.9 fl (82-101); Monocytes # 1.6 10^3/uL (0.2-0.9); Monocytes % 10.4 %; Neutrophils # 12.22 10^3/uL (1.8-7.7); Neutrophils % 81.3 %; Nucleated Red Blood Cells % 0 %; Platelet Count 305 10^3/cmm (157-399); Red Blood Count 4.28 10^6/uL (3.85-5.65); Red Cell Distribution Width 14.4 % (12.1-15.1); White Blood Count 15.04 10^3/uL (3.29-11.43)
[2024-04-17 06:22] LABS: Alanine Aminotransferase 16 U/L (0-41); Alkaline Phosphatase 69 U/L (40-130); Anion Gap 9.1 (5-19); Aspartate Amino Transferase 15 U/L (0-40); Blood Urea Nitrogen 18 mg/dL (8-23); Calcium 8.2 mg/dL (8.5-10.5); Carbon Dioxide 36 mmol/L (22-29); Chloride 100 mmol/L (98-107); Creatinine Clr Calc Pharmacy 81.9219; Globulin 2.9 g/dL (1.3-4.6); Glucose 116 mg/dL (65-115); Osmolality Calculated 295 mOsm/kg (285-295); Potassium 4.1 mmol/L (3.5-5.1); Sodium 141 mmol/L (136-145); Total Bilirubin 0.2 mg/dL (0.15-1.2); Total Protein 5.9 g/dL (6.6-8.7)
[2024-04-17 06:28] LABS: Glucose Point of Care 122 mg/dL (70-110)
[2024-04-17 07:25] VITALS: BP 143/69; PULSE 63; RESP 19; TEMP 36.4; O2SAT 96
[2024-04-17 08:38] VITALS: PULSE 71; RESP 16; O2SAT 92
[2024-04-17] MEDS: nicotine 14 mg Patch 1 PATCH TRANSDERMA (09:15)
--- NOTE | 2024-04-17 10:06 | PM.DCS ---
Discharge Providers Date of Admission: 04/15/24 07:45 Date of Discharge: April 17, 2024 Attending Provider at Admission: Minh Brantley Attending Provider at Discharge: Minh Brantley Primary Care Provider: Karlee Ashraf MD Diagnoses at Discharge Discharge Diagnosis (1) Sepsis: Status: Acute Qualifiers: Sepsis acute organ dysfunction status: without acute organ dysfunction Sepsis type: sepsis due to unspecified organism Qualified Code(s): A41.9 - Sepsis, unspecified organism (2) Urinary tract infection: Status: Acute Qualifiers: Hematuria presence: with hematuria Urinary tract infection type: acute cystitis Qualified Code(s): N30.01 - Acute cystitis with hematuria (3) Hematuria: Status: Acute Reason for Visit Reason for Visit: constipation,unable to urinate Brief History: 73-year-old gentleman came in for evaluation to the emergency department after having difficulties urinating with urinary urgency, history of BPH. Also reporting difficulty moving his bowels. Hospital Course Hospital Course On presentation he was found to have severe sepsis with fever, leukopenia, lactic acid elevation, started on antibiotic, cultures collected, received fluid resuscitation, was also found to have hematuria and urine retention, [place] catheter was placed, to have urinary tract infection, was treated with Zosyn, urine culture eventually grew E. coli resistant to Augmentin, ceftriaxone, cefuroxime, tetracycline. Sepsis resolved. He is feeling better. Ambulated with a walker. Feels ready to return home. Will complete antibiotic course with ciprofloxacin. Please follow-up and reassess on chronic retention. Continues on Flomax. Prescription to start finasteride is added for him as well due to chronic bladder obstruction appearance on CT. Please follow-up close incidentally noted small AAA, severe arterial atherosclerosis. Physical Exam Narrative: He reports he is feeling well. Denies any complaints. Feels ready to return home. Const: COMMON NORMALS: patient oriented x3 and alert GENERAL APPEARANCE: cooperative ORIENTATION/CONSCIOUSNESS: Yes awake HENMT: COMMON NORMALS: oropharynx normal Neck/C-Spine: COMMON NORMALS: no JVD Resp: COMMON NORMALS: normal respiratory effort and clear to auscultation bilaterally AUSCULTATION: clear to auscultation bilaterally Cardio: COMMON NORMALS: no JVD, regular rhythm, S1 normal heart sound present, S2 normal heart sound present and No murmurs present (Cardio) RHYTHM: regular rhythm HEART SOUNDS: S1 normal heart sound present and S2 normal heart sound present GI: COMMON NORMALS: Normal to inspection, nondistended, normoactive bowel sounds present, Soft to palpation and non-tender PALPATION: Yes Soft to palpation Extremity: COMMON NORMALS: no joint enlargement and no pedal edema Neuro: COMMON NORMALS: patient oriented x3 and moves all extremities SENSORIUM/ORIENTATION: Yes alert Skin: COMMON NORMALS: no rashes or lesions noted GENERAL SKIN EXAM: no rashes or lesions noted Urinary Catheter Management: Montes De Oca: Cath Placed During This Visit: yes Reason for Continuing Indwelling Catheter: Acute Urinary Retention or Obstruction Urinary Catheter Date of Insertion: 04/15/24 Urinary Catheter Time of Insertion: 14:15 Discharge Data Studies Completed and Pending Completed Studies During Hospitalization Category Date Time Status CT abdomen renal stone [CT kidney stone [id number]] Stat Cat Scan 04/15/24 04:09 Completed XR abdomen 1V* [id number] Stat Exams 04/15/24 02:31 Completed XR chest 1V portable [id number] Stat Exams 04/15/24 06:30 Completed Pending at discharge Category Date Time Status Blood Culture Stat Lab 04/15/24 07:54 Results Complete Blood Count w/Auto AM LABS Lab 04/18/24 04:00 Ordered Comprehensive Metabolic Panel AM LABS Lab 04/18/24 04:00 Ordered Radiology Impressions Abdomen X-Ray 04/15/24 02:31 IMPRESSION: 1. No acute findings. 2. CT pending. Abdomen/Pelvis CT 04/15/24 04:09 IMPRESSION: 1. Concern for cystitis with evidence of chronic bladder outlet obstruction. 2. No small bowel obstruction or obstructing ureteral stone identified. The colon is rather fecal filled. Severe sigmoid diverticulosis. 3. Bilateral perinephric fat stranding/scarring. 4. Numerous chronic findings above including small AAA, severe atherosclerosis, etc. Chest X-Ray 04/15/24 06:30 IMPRESSION: Previously noted hazy density over the left hemidiaphragm appears improved. No acute cardiopulmonary abnormality identified. Laboratory Results WBC 15.04 10^3/uL (3.29-11.43) H 04/17/24 05:15 RBC 4.28 10^6/uL (3.85-5.65) 04/17/24 05:15 Hgb 12.50 g/dL (11.27-16.99) 04/17/24 05:15 Hct 40.6 % (37-53) 04/17/24 05:15 MCV 94.9 fl (82-101) 04/17/24 05:15 MCH 29.2 pg (27-33) 04/17/24 05:15 MCHC 30.8 g/dL (30-55) 04/17/24 05:15 RDW 14.4 % (12.1-15.1) 04/17/24 05:15 Plt Count 305 10^3/cmm (157-399) 04/17/24 05:15 MPV 10.0 fL (7.4-10.4) 04/17/24 05:15 Neut % (Auto) 81.3 % 04/17/24 05:15 Lymph % (Auto) 5.5 % 04/17/24 05:15 [place] % (Auto) 10.4 % 04/17/24 05:15 Eos % (Auto) 1.8 % 04/17/24 05:15 Baso % (Auto) 0.4 % 04/17/24 05:15 Neut # (Auto) 12.22 10^3/uL (1.8-7.7) H 04/17/24 05:15 Lymph # (Auto) 0.8 10^3/uL (0.8-4.8) 04/17/24 05:15 [place] # (Auto) 1.6 10^3/uL (0.2-0.9) H 04/17/24 05:15 Eos # (Auto) 0.3 10^3/uL (0.0-0.8) 04/17/24 05:15 Baso # (Auto) 0.1 10^3/uL (0.0-0.1) 04/17/24 05:15 Nucleated RBC % (auto) 0 % 04/17/24 05:15 Total Counted 100 (0-100) 04/16/24 05:28 Atypical Lymphs % Not Reportable 04/16/24 05:28 Absolute Neutrophils 17.4 10^3/cmm (1.4-6.5) H 04/16/24 05:28 Segmented Neutrophils 65 % 04/16/24 05:28 Abs Segm Neuts (Man) 13.1 10/cmm (1.6-7.1) H 04/16/24 05:28 Band Neutrophils 21.0 % 04/16/24 05:28 Abs Band Neuts (Man) 4.2 10^3/cmm (0.0-1.2) H 04/16/24 05:28 Lymphocytes (Manual) 5 % 04/16/24 05:28 Monocytes (Manual) 8.0 % 04/16/24 05:28 Absolute Monocytes 1.6 10^3/cmm (0.1-0.6) H 04/16/24 05:28 Eosinophils (Manual) 1 % 04/16/24 05:28 Absolute Eosinophils 0.2 10^3/cmm (0.0-0.7) 04/16/24 05:28 Basophils (Manual) 0.0 % 04/16/24 05:28 Absolute Basophils 0.0 10^3/cmm (0.0-0.2) 04/16/24 05:28 Nucleated RBCs # 0.0 /100WBC 04/17/24 05:15 Platelet Estimate Normal (Normal) 04/16/24 05:28 Sodium 141 mmol/L (136-145) 04/17/24 05:15 Potassium 4.1 mmol/L (3.5-5.1) 04/17/24 05:15 Chloride 100 mmol/L (98-107) 04/17/24 05:15 Carbon Dioxide 36 mmol/L (22-29) H 04/17/24 05:15 Anion Gap 9.1 (5-19) 04/17/24 05:15 BUN 18 mg/dL (8-23) 04/17/24 05:15 Creatinine 0.7 mg/dL (0.7-1.2) 04/17/24 05:15 GFR Calculation Not Reportable 04/17/24 05:15 Glucose 116 mg/dL (65-115) H 04/17/24 05:15 POC Glucose 122 mg/dL (70-110) H 04/17/24 06:25 Calculated Osmolality 295 mOsm/kg (285-295) 04/17/24 05:15 Lactic Acid 5.4 mmol/L (0.5-2.2) H* 04/15/24 06:27 Lactic Acid (Sepsis) 1.8 mmol/L (0.5-2.2) 04/15/24 08:56 Calcium 8.2 mg/dL (8.5-10.5) L 04/17/24 05:15 Magnesium 2.2 mg/dL (1.7-2.3) 04/16/24 05:28 Total Bilirubin 0.2 mg/dL (0.15-1.2) 04/17/24 05:15 AST 15 U/L (0-40) 04/17/24 05:15 ALT 16 U/L (0-41) 04/17/24 05:15 Alkaline Phosphatase 69 U/L (40-130) 04/17/24 05:15 C-Reactive Protein 146.9 mg/L (0.0-4.9) H 04/15/24 06:27 Total Protein 5.9 g/dL (6.6-8.7) L 04/17/24 05:15 Albumin 3.0 g/dL (3.5-5.2) L 04/17/24 05:15 Globulin 2.9 g/dL (1.3-4.6) 04/17/24 05:15 Urine Color Yellow (Yellow) 04/15/24 02:57 Urine Appearance Cloudy (CLEAR) A 04/15/24 02:57 Urine pH 5 (5-7) 04/15/24 02:57 Ur Specific [place] 1.015 (1.005-1.030) 04/15/24 02:57 Urine Protein 3+ (Negative) H 04/15/24 02:57 Urine Glucose (UA) 4+ (Normal) H 04/15/24 02:57 Urine Ketones 1+ (Negative) H 04/15/24 02:57 Urine Blood 3+ (Negative) H 04/15/24 02:57 Urine Nitrate Negative (Negative) 04/15/24 02:57 Urine Bilirubin Neg (Negative) 04/15/24 02:57 Urine Urobilinogen Neg mg/dL (Negative) 04/15/24 02:57 Ur Leukocyte Esterase Trace (Negative) H 04/15/24 02:57 Urine RBC 80-100 /hpf (0-2) H 04/15/24 02:57 Urine WBC 5-10 /hpf (0-5) H 04/15/24 02:57 Ur Squamous Epith Cells None /hpf (0-5) 04/15/24 02:57 Amorphous Sediment Not Reportable 04/15/24 02:57 Urine Bacteria 4+ /hpf (NONE) H 04/15/24 02:57 Urine Mucus 3+ /hpf 04/15/24 02:57 Vitals Last Vital Signs Temp 97.5 F L 04/17/24 07:25 Pulse 71 04/17/24 08:38 Resp 16 04/17/24 08:38 BP 143/69 04/17/24 07:25 Pulse Ox 92 04/17/24 08:38 O2 Del Method Nasal Cannula 04/17/24 08:38 O2 Flow Rate 2 04/17/24 08:38 Discharge Plan Discharge Patient Disposition: Home Health Service Condition: Stable Prescriptions: New ciprofloxacin HCl 500 mg tablet 500 mg PO BID Qty: 10 0RF finasteride 5 mg tablet 5 mg PO DAILY Qty: 90 0RF Continued (DME) Custom Molded Accommadative Orthotics with Metatarsal Pads and Orthopedic Shoes See Rx Instructions .Route .MEDSUPPLY Qty: 1 0RF Rx Instructions: As directed J P & O aspirin 81 mg Tablet,Delayed Release (Dr/Ec) 81 mg PO QAM acetaminophen 500 mg Tablet 500 mg PO QID PRN (Reason: Pain) cholecalciferol (vitamin D3) [Vitamin D3] 50 mcg (2,000 unit) Tablet 50 mcg PO QAM tamsulosin 0.4 mg capsule 0.4 mg PO BEDTIME glipizide 10 mg Tablet 10 mg PO TID triamcinolone acetonide 0.1 % Ointment 1 applic TOPICAL BID PRN (Reason: Rash) lidocaine 5 % Adhesive Patch,Medicated See Rx Instructions .ROUTE .COMPLEX Rx Instructions: APPLY 1 PATCH TO SKIN SITE ONCE DAILY FOR LOCAL ANESTHESIA. APPLY PATCH AND PRESS FIRMLY FOR 10-15 SECONDS. KEEP ON FOR 12 HOURS THEN REMOVE PATCH FOR 12 HOURS. carbamide peroxide 6.5 % Drops 4 drp otic (ear) .[id number] PRN (Reason: Ear Wax) lisinopril-hydrochlorothiazide 20-25 mg Tablet 1 tab PO QAM albuterol sulfate 90 mcg/actuation Hfa Aerosol Inhaler 2 puff INHALATION QID PRN (Reason: Shortness Of Breath) clindamycin phosphate 1 % Solution 1 applic TOPICAL BID PRN (Reason: ITCHY BUMPS) fenofibrate 160 mg Tablet 160 mg PO QAM Jardiance 25 mg Tablet 25 mg PO QAM nicotine 14 mg/24 hr Patch 24 Hour 1 patch TRANSDERMAL QAM dextromethorphan-guaifenesin 10-100 mg/5 mL Syrup 10 ml PO QID PRN (Reason: COUGH/CONGESTION) nicotine 21 mg/24 hr Patch 24 Hour 1 patch TRANSDERMAL DAILY mupirocin 2 % Ointment 1 applic TOPICAL BID nicotine 7 mg/24 hr Patch 24 Hour 1 patch transdermal DAILY ezetimibe 10 mg Tablet 10 mg PO DAILY guaifenesin 400 mg Tablet 400 mg PO BID nicotine (polacrilex) 2 mg Lozenge 2 mg BUCCAL Q4H PRN (Reason: CESSATION) apple cider vinegar 300 mg Tablet 300 mg PO DAILY Alive Men's Ultra Potency 400 mcg DFE- 120 mcg Tablet 1 tab PO DAILY Discharge Orders: Discharge Order (Routine); Ordered 04/17/24 Ordered By: Minh Brantley Other Ambulatory Orders: DME: Walker (Order) Location: None Selected Ordered By: Minh Brantley Referrals: [facility] [Outside] Karlee Ashraf MD [Primary Care Provider] - 4-7 days (Dr. Ashraf's Office has your information and will be calling you to schedule a follow up appointment. You can also call them if you have any questions or concerns. Thank you. ) Discharge Diet: Diabetic Patient Instructions: Ciprofloxacin (By mouth) (Cipro), Urinary Retention in Men (GEN), Urinary Tract Infection in Men (GEN) Activity Restrictions/Additional Instructions: Complete antibiotic course for urinary tract infection. Follow-up with your primary doctor for reassessment of recovery. Continue to work with your primary doctor for management of enlarged prostate. Seek medical attention in the case of any difficulty urinating, fever, chills, abdominal pain, or any worsening or new concerning symptoms. Discharge Attestations Time Spent in Discharge Care*: greater than 30 min Quality Metrics Clinical Quality Measures [ No reported AMI, CVA or VTE this stay] Coding Level of Care Code 79345 Total time (in minutes) for Discharge: 50 Diagnoses Sepsis A41.9 Sepsis acute organ dysfunction status: without acute organ dysfunction Sepsis type: sepsis due to unspecified organism Urinary tract infection N30.01 Hematuria presence: with hematuria Urinary tract infection type: acute cystitis Hematuria R31.9
[2024-04-17 11:43] LABS: Glucose Point of Care 117 mg/dL (70-110)
[2024-04-17 12:42] VITALS: BP 128/68; PULSE 75; RESP 19; TEMP 36.3; O2SAT 94
[2024-04-17 15:26] VITALS: BP 128/68; PULSE 75; RESP 19; TEMP 36.3; O2SAT 94
== END 2024-04-17 15:27 | disposition home health service (06) | DRG 872 ==
LOC: ER 07:41 → ICU 07:46 → MEDSURG 16:45
PROVIDERS: Emergency Medicine; Admitting Provider Internal Medicine; Emergency Provider Emergency Medicine; PCP Family Medicine; Visit Provider Internal Medicine
DX: A41.9 Sepsis, unspecified organism (principal); N30.01 Acute cystitis with hematuria; N13.8 Other obstructive and reflux uropathy; R65.20 Severe sepsis without septic shock; J44.9 Chronic obstructive pulmonary disease, unspecified; F17.210 Nicotine dependence, cigarettes, uncomplicated; Z99.81 Dependence on supplemental oxygen; K57.30 Diverticulosis of large intestine without perforation or abscess without bleeding; I71.40 Abdominal aortic aneurysm, without rupture, unspecified; I10 Essential (primary) hypertension; B96.20 Unspecified Escherichia coli [E. coli] as the cause of diseases classified elsewhere; N40.1 Benign prostatic hyperplasia with lower urinary tract symptoms; R33.8 Other retention of urine; R39.15 Urgency of urination
CPT/HCPCS: 36415; 36416; 51701; 51702; 51798; 71045; 74018; 74176; 80053; 81001; 82962; 83605; 83735; 85007; 85025; 86140; 87040; 87077; 87086; 87150; 87186; 87205; 96361; 96365; 97116; 97161; 99285; J0696; J2543; J7030; J7040

== ENCOUNTER 2024-05-12 14:37 | Emergency (ER) | payer OTHER, SELFPAY ==
[2024-05-12 14:38] VITALS: BP 165/74; PULSE 79; TEMP 36.7; O2SAT 93; BMI 28.2
--- NOTE | 2024-05-12 14:48 | W.ED.ABDPA2 ---
HPI - Abdominal Pain General: Chief Complaint: Abdominal Pain Stated Complaint: Stomach pain--[facility] Time Seen by Provider: 05/12/24 14:41 Source: patient Mode of arrival: ambulatory Limitations: no limitations History of Present Illness: Patient is a very nice 73-year-old male who presents to ED today with complaints of upper abdominal pain over the past 5 days or so. Patient states he only has pain with coughing and when he goes from a lying to seated position. He has not noticed any masses or bulges to the abdomen. He describes it as a burning and tearing sensation . No rash. He does not describe symptoms of acid reflux. He is not having any chest pain, shortness of breath, or difficulty breathing. Denies urinary symptoms or flank pain. [facility] MD elicited complaint: abdominal pain Onset (ago): day(s) Pain Consistency: intermittent Location: Epigastric and LUQ Severity: moderate Quality: burning and other (tearing) Radiation: none Migration to: no migration Exacerbating factors: other (coughing, going from a lying to seated position) Relieving factors: nothing Associated Symptoms: Reports no associated symptoms; Denies chills, diarrhea, dysuria, fever(s), nausea, syncope and vomiting Review of Systems Const: Denies: fever(s), chills, body aches, fatigue or malaise Card: Denies: chest pain, palpitations, irregular heart rhythm, edema, swelling of feet/ankles, lightheadedness, syncope, pre-syncope, dyspnea on exertion, orthopnea, leg pain with exertion or acrocyanosis Resp: Denies: dyspnea, productive cough, non-productive cough or chest congestion GI: Reports: abdominal pain; Denies: nausea, vomiting or diarrhea : Denies: flank pain, difficulty urinating, dysuria, urinary frequency, urinary urgency or urinary hesitancy Musc: Denies: neck pain, back pain, extremity pain, extremity swelling, joint pain, joint swelling, joint redness or joint warmth Skin/Breast: Denies: rash Neuro: Denies: headache(s), numbness in extremities, weakness in extremities, sensory changes or dizziness PFS ED PFSH: Medical History Oxygen dependent COPD (chronic obstructive pulmonary disease) Arthritis Hypertension Bacteremia Diverticulitis Bacterial infection due to Bacteroides fragilis Diverticulitis Hidradenitis suppurativa H/O fracture of ankle BPH loc w urin obs/LUTS Elevated PSA Surgical History History of surgery on arm History of mandibular surgery Hx of hernia repair S/P appendectomy Family History Father , 77 CAD (coronary artery disease) Mother , 82 Cancer bREAST Social History Smoking and tobacco/nicotine status: current every day tobacco/nicotine user Alcohol intake: never Substance/Drug Use: never Marital status: / Current occupational status: retired Physical Exam Const: COMMON NORMALS: no acute distress, average body habitus, patient oriented x3, no limitations, healthy appearing, alert and well nourished GENERAL APPEARANCE: cooperative ORIENTATION/CONSCIOUSNESS: Yes awake, Yes oriented to person, Yes oriented to place and Yes oriented to time Eye: COMMON NORMALS: no scleral icterus Chest: COMMONS NORMALS: normal inspection of the chest and normal palpation of entire chest wall Resp: COMMON NORMALS: normal respiratory effort and clear to auscultation bilaterally AUSCULTATION: clear to auscultation bilaterally Cardio: COMMON NORMALS: regular rate and regular rhythm RATE: regular rate RHYTHM: regular rhythm GI: COMMON NORMALS: Normal to inspection, nondistended, normoactive bowel sounds present, Soft to palpation, No hepatosplenomegaly present and no masses INSPECTION: Yes normal to inspection AUSCULTATION: Yes normoactive bowel sounds PALPATION: Yes Soft to palpation, Yes Tenderness to palpation present (GI) (epigastric, LUQ), Yes Guarding due to palpation present (GI), No Rigid due to palpation and Yes No hepatosplenomegaly present : COMMON NORMALS: Yes no CVA tenderness BLADDER/KIDNEY EXAM: Yes no CVA tenderness Back/Pelvis: COMMON NORMALS: no CVA tenderness and thoracic and lumbar spine normal to inspection Extremity: COMMON NORMALS: normal to inspection GENERAL: Yes normal exam except as noted Neuro: TINA COMA SCALE: document GCS findings Tina coma scale eye opening: Spontaneous Tina coma scale verbal response: Orientated Tina coma scale motor response: Obey commands [place] coma scale total score: 15 COMMON NORMALS: patient oriented x3, moves all extremities, no focal motor deficits and no sensory deficits noted SENSORIUM/ORIENTATION: Yes alert, Yes oriented to person, Yes oriented to place and Yes oriented to time Skin: COMMON NORMALS: no rashes or lesions noted GENERAL SKIN EXAM: no rashes or lesions noted Course Vital Signs: Vital signs: Vital Signs Temperature 98.0 F 05/12/24 14:38 Pulse Rate 82 05/12/24 16:00 Respiratory Rate 16 05/12/24 15:15 Blood Pressure 157/80 05/12/24 15:30 Pulse Oximetry 98 05/12/24 16:00 Oxygen Delivery Me thod Room Air 05/12/24 16:00 MDM - Abdominal Pain Medical Decision Making Patient clinically appears in no acute distress. His abdominal discomfort is reproducible with palpation. Given history of pain only with coughing and going from a lying to sitting position this could be musculoskeletal. His blood work here overall is unremarkable. His CT scan showing no acute abnormalities. He was noted to have a left lower lobe pulmonary nodule which patient is aware of and states [facility] Recommend [facility] if symptoms do not seem to be improving. He was given return precautions. Medical Records I reviewed the patient's medical records. Lab Data I reviewed the patient's lab results. 05/12/24 15:23 05/12/24 15:23 Labs/Radiology: Radiology Impressions Abdomen/Pelvis CT 05/12/24 15:15 IMPRESSION: 1. No evidence of acute abnormality in the abdomen or pelvis. 2. Left lower lobe pulmonary nodule measuring 6 mm. If patient is considered at high risk for bronchogenic carcinoma (history of smoking or other known risk factor), follow up CT of the chest in 12 months is recommended. For patients at low risk (minimal or absent history of smoking and without other known risk factors), no further follow up is required. References: Syeda H, et al. Guidelines for Management of Incidental Pulmonary Nodules Detected on CT Images: From the Fleischner Society 2017. Radiology. 2017;284(1):228-243. Laboratory Results WBC 5.72 10^3/uL (3.29-11.43) 05/12/24 15:23 RBC 4.41 10^6/uL (3.85-5.65) 05/12/24 15:23 Hgb 12.90 g/dL (11.27-16.99) 05/12/24 15:23 Hct 42.1 % (37-53) 05/12/24 15:23 MCV 95.5 fl (82-101) 05/12/24 15:23 MCH 29.3 pg (27-33) 05/12/24 15:23 MCHC 30.6 g/dL (30-55) 05/12/24 15:23 RDW 14.6 % (12.1-15.1) 05/12/24 15:23 Plt Count 226 10^3/cmm (157-399) 05/12/24 15:23 MPV 9.9 fL (7.4-10.4) 05/12/24 15:23 Neut % (Auto) 60.3 % 05/12/24 15:23 Lymph % (Auto) 18.2 % 05/12/24 15:23 [place] % (Auto) 16.8 % 05/12/24 15:23 Eos % (Auto) 3.5 % 05/12/24 15:23 Baso % (Auto) 1.0 % 05/12/24 15:23 Neut # (Auto) 3.45 10^3/uL (1.8-7.7) 05/12/24 15:23 Lymph # (Auto) 1.0 10^3/uL (0.8-4.8) 05/12/24 15:23 [place] # (Auto) 1.0 10^3/uL (0.2-0.9) H 05/12/24 15:23 Eos # (Auto) 0.2 10^3/uL (0.0-0.8) 05/12/24 15:23 Baso # (Auto) 0.1 10^3/uL (0.0-0.1) 05/12/24 15:23 Nucleated RBC % (auto) 0 % 05/12/24 15:23 Nucleated RBCs # 0.0 /100WBC 05/12/24 15:23 Sodium 142 mmol/L (136-145) 05/12/24 15:23 Potassium 4.3 mmol/L (3.5-5.1) 05/12/24 15:23 Chloride 100 mmol/L (98-107) 05/12/24 15:23 Carbon Dioxide 31 mmol/L (22-29) H 05/12/24 15:23 Anion Gap 15.3 (5-19) 05/12/24 15:23 BUN 14 mg/dL (8-23) 05/12/24 15:23 Creatinine 0.7 mg/dL (0.7-1.2) 05/12/24 15:23 GFR Calculation Not Reportable 05/12/24 15:23 Glucose 72 mg/dL (65-115) 05/12/24 15:23 Calculated Osmolality 293 mOsm/kg (285-295) 05/12/24 15:23 Calcium 8.9 mg/dL (8.5-10.5) 05/12/24 15:23 Total Bilirubin 0.3 mg/dL (0.15-1.2) 05/12/24 15:23 AST 21 U/L (0-40) 05/12/24 15:23 ALT 23 U/L (0-41) 05/12/24 15:23 Alkaline Phosphatase 48 U/L (40-130) 05/12/24 15:23 Total Protein 6.7 g/dL (6.6-8.7) 05/12/24 15:23 Albumin 4.0 g/dL (3.5-5.2) 05/12/24 15:23 Globulin 2.7 g/dL (1.3-4.6) 05/12/24 15:23 Lipase 28 U/L (13-60) 05/12/24 15:23 Urine Color Yellow (Yellow) 05/12/24 15:30 Urine Appearance Clear (CLEAR) 05/12/24 15:30 Urine pH 5 (5-7) 05/12/24 15:30 Ur Specific [place] 1.015 (1.005-1.030) 05/12/24 15:30 Urine Protein 1+ (Negative) H 05/12/24 15:30 Urine Glucose (UA) 4+ (Normal) H 05/12/24 15:30 Urine Ketones Negative (Negative) 05/12/24 15:30 Urine Blood Trace (Negative) H 05/12/24 15:30 Urine Nitrate Negative (Negative) 05/12/24 15:30 Urine Bilirubin Neg (Negative) 05/12/24 15:30 Urine Urobilinogen Norm mg/dL (Negative) 05/12/24 15:30 Ur Leukocyte Esterase Negative (Negative) 05/12/24 15:30 Urine RBC 0-4 /hpf (0-2) H 05/12/24 15:30 Urine WBC 0-4 /hpf (0-5) H 05/12/24 15:30 Ur Squamous Epith Cells None /hpf (0-5) 05/12/24 15:30 Amorphous Sediment Not Reportable 05/12/24 15:30 Urine Bacteria Trace /hpf (NONE) 05/12/24 15:30 All radiology interpretation(s) finalized by discharge Discharge Plan Discharge Condition: Stable Prescriptions: No Action (DME) Custom Molded Accommadative Orthotics with Metatarsal Pads and Orthopedic Shoes See Rx Instructions .Route .MEDSUPPLY Qty: 1 0RF Rx Instructions: As directed J P & O aspirin 81 mg Tablet,Delayed Release (Dr/Ec) 81 mg PO QAM acetaminophen 500 mg Tablet 500 mg PO QID PRN (Reason: Pain) cholecalciferol (vitamin D3) [Vitamin D3] 50 mcg (2,000 unit) Tablet 50 mcg PO QAM tamsulosin 0.4 mg capsule 0.4 mg PO BEDTIME glipizide 10 mg Tablet 10 mg PO TID triamcinolone acetonide 0.1 % Ointment 1 applic TOPICAL BID PRN (Reason: Rash) lidocaine 5 % Adhesive Patch,Medicated See Rx Instructions .ROUTE .COMPLEX Rx Instructions: APPLY 1 PATCH TO SKIN SITE ONCE DAILY FOR LOCAL ANESTHESIA. APPLY PATCH AND PRESS FIRMLY FOR 10-15 SECONDS. KEEP ON FOR 12 HOURS THEN REMOVE PATCH FOR 12 HOURS. carbamide peroxide 6.5 % Drops 4 drp otic (ear) .[id number] PRN (Reason: Ear Wax) lisinopril-hydrochlorothiazide 20-25 mg Tablet 1 tab PO QAM albuterol sulfate 90 mcg/actuation Hfa Aerosol Inhaler 2 puff INHALATION QID PRN (Reason: Shortness Of Breath) clindamycin phosphate 1 % Solution 1 applic TOPICAL BID PRN (Reason: ITCHY BUMPS) fenofibrate 160 mg Tablet 160 mg PO QAM Jardiance 25 mg Tablet 25 mg PO QAM nicotine 14 mg/24 hr Patch 24 Hour 1 patch TRANSDERMAL QAM dextromethorphan-guaifenesin 10-100 mg/5 mL Syrup 10 ml PO QID PRN (Reason: COUGH/CONGESTION) nicotine 21 mg/24 hr Patch 24 Hour 1 patch TRANSDERMAL DAILY mupirocin 2 % Ointment 1 applic TOPICAL BID nicotine 7 mg/24 hr Patch 24 Hour 1 patch transdermal DAILY ezetimibe 10 mg Tablet 10 mg PO DAILY guaifenesin 400 mg Tablet 400 mg PO BID nicotine (polacrilex) 2 mg Lozenge 2 mg BUCCAL Q4H PRN (Reason: CESSATION) apple cider vinegar 300 mg Tablet 300 mg PO DAILY Alive Men's Ultra Potency 400 mcg DFE- 120 mcg Tablet 1 tab PO DAILY ciprofloxacin HCl 500 mg tablet 500 mg PO BID Qty: 10 0RF finasteride 5 mg tablet 5 mg PO DAILY Qty: 90 0RF Referrals: Karlee Ashraf MD [Primary Care Provider] - Coding Level of Care Code ED Director Of Employee Development for Josie Cedeno
[2024-05-12 15:15] VITALS: BP 160/88; PULSE 84; RESP 16; O2SAT 99
--- NOTE | 2024-05-12 15:15 | CTR_ITS ---
PROCEDURE INFORMATION: Exam: CT Abdomen And Pelvis With Contrast Exam date and time: 05/12/2024 4:00 PM Age: 73 years old Clinical indication: Abdominal pain; Epigastric; Prior surgery; Surgery date: 1-6 months; Surgery type: Appy, hernia; Additional info: Epigastric, luq abdominal pain TECHNIQUE: Imaging protocol: Computed tomography of the abdomen and pelvis with contrast. Radiation optimization: All CT scans at this facility use at least one of these dose optimization techniques: automated exposure control; mA and/or kV adjustment per patient size (includes targeted exams where dose is matched to clinical indication); or iterative reconstruction. Contrast material: OMNI 350; Contrast volume: 100 ml; Contrast route: INTRAVENOUS (IV); COMPARISON: CT kidney stone [id number] 04/15/2024 4:31 AM RADIATION DOSE METRICS: Total DLP (mGy-cm): 702.21 FINDINGS: Lungs: Subsegmental bibasilar atelectasis. 6 mm left lower lobe pulmonary nodule. The visualized lung bases are otherwise grossly clear. Diaphragm: No evidence of diaphragmatic defect. Liver: Hepatic steatosis. No evidence of focal hepatic lesion. Gallbladder and biliary ducts: Unremarkable. No intra-hepatic or extra-hepatic biliary dilatation. Pancreas: There is scattered parenchymal calcifications compatible with sequela of chronic pancreatitis. Otherwise grossly unremarkable. Spleen: Unremarkable. Adrenal glands: Unremarkable. Kidneys and ureters: There are simple appearing renal cysts for which dedicated imaging follow-up is not required. 3 mm nonobstructive left-sided renal stone. Otherwise no evidence of renal parenchymal abnormality. No hydronephrosis or ureteral stone. Stomach and bowel: Extensive colonic diverticulosis, particularly of the sigmoid, without evidence of acute diverticulitis. No bowel obstruction or perienteric inflammatory changes. Appendix: Normal appendix. Intraperitoneal space: No evidence of free air or fluid collection. Vasculature: Aneurysmal dilatation of the infrarenal abdominal aorta to 4.0 cm (AP) with extensive mixed atherosclerotic plaque. No evidence of dissection. Severe narrowing of the origin of the celiac trunk secondary to densely calcified atherosclerotic plaque. Mild narrowing of the origin of the SMA. No evidence of IVC thrombus. The portal vein, SMV and splenic veins are grossly patent. Lymph nodes: No adenopathy. Urinary bladder: There is a left-sided bladder wall diverticulum. Otherwise grossly unremarkable. Reproductive: Excreted prostate 5.4 Bones/joints: No evidence of acute fracture or aggressive osseous lesion. Soft tissues: No evidence of fluid collection or hematoma in the superficial soft tissues. Small fat containing left-sided inguinal hernia. CT/CT abdomen pelvis w con* [id number] IMPRESSION: 1. No evidence of acute abnormality in the abdomen or pelvis. 2. Left lower lobe pulmonary nodule measuring 6 mm. If patient is considered at high risk for bronchogenic carcinoma (history of smoking or other known risk factor), follow up CT of the chest in 12 months is recommended. For patients at low risk (minimal or absent history of smoking and without other known risk factors), no further follow up is required. References: Syeda H, et al. Guidelines for Management of Incidental Pulmonary Nodules Detected on CT Images: From the Fleischner Society 2017. Radiology. 2017;284(1):228-243.
[2024-05-12 15:30] VITALS: BP 157/80; PULSE 79; O2SAT 99
[2024-05-12 15:31] LABS: Basophils # 0.1 10^3/uL (0.0-0.1); Eosinophils # 0.2 10^3/uL (0.0-0.8); Eosinophils % 3.5 %; Hematocrit 42.1 % (37-53); Lymphocytes % 18.2 %; Mean Corpuscular HGB Conc 30.6 g/dL (30-55); Mean Corpuscular Hemoglobin 29.3 pg (27-33); Mean Corpuscular Volume 95.5 fl (82-101); Mean Platelet Volume 9.9 fL (7.4-10.4); Monocytes % 16.8 %; Neutrophils # 3.45 10^3/uL (1.8-7.7); Neutrophils % 60.3 %; Nucleated Red Blood Cells % 0 %; Platelet Count 226 10^3/cmm (157-399); Red Blood Count 4.41 10^6/uL (3.85-5.65); Red Cell Distribution Width 14.6 % (12.1-15.1); White Blood Count 5.72 10^3/uL (3.29-11.43)
[2024-05-12 15:52] LABS: Alanine Aminotransferase 23 U/L (0-41); Alkaline Phosphatase 48 U/L (40-130); Anion Gap 15.3 (5-19); Aspartate Amino Transferase 21 U/L (0-40); Blood Urea Nitrogen 14 mg/dL (8-23); Calcium 8.9 mg/dL (8.5-10.5); Carbon Dioxide 31 mmol/L (22-29); Chloride 100 mmol/L (98-107); Creatinine Clr Calc Pharmacy 81.4604; Globulin 2.7 g/dL (1.3-4.6); Glucose 72 mg/dL (65-115); Lipase 28 U/L (13-60); Osmolality Calculated 293 mOsm/kg (285-295); Potassium 4.3 mmol/L (3.5-5.1); Sodium 142 mmol/L (136-145); Total Bilirubin 0.3 mg/dL (0.15-1.2); Total Protein 6.7 g/dL (6.6-8.7)
[2024-05-12 16:00] VITALS: PULSE 82; O2SAT 98
[2024-05-12 16:02] LABS: Glucose Urine UA 4+ (Normal); Protein Urine 1+ (Negative); Specific Gravity, Urine 1.015 (1.005-1.030); Urine Appearance Clear (CLEAR); Urine Color Yellow (Yellow); pH Urine 5 (5-7)
[2024-05-12 16:03] LABS: Add Urine Culture? No; Add Urine Microscopic? YES; Bacteria Urine TRACE /hpf; Bilirubin Urine Neg (Negative); Blood Urine Trace (Negative); Ketones Urine Negative (Negative); Leukocyte Esterase Urine Negative (Negative); Nitrate Urine Negative (Negative); RBC Urine 0-4 /hpf (0-2); Urobilinogen Urine Norm (Negative); WBC Urine 0-4 /hpf (0-5)
[2024-05-12] MEDS: iohexol 350 mg/mL 500 mL Btl (per mL) IV (16:04)
[2024-05-12 17:14] VITALS: BP 167/87; PULSE 79; O2SAT 98
== END 2024-05-12 17:15 | disposition home or self-care (01) ==
PROVIDERS: Emergency Medicine; Emergency Provider Physician Assistant; PCP Family Medicine
DX: R10.10 Upper abdominal pain, unspecified (principal); Z72.0 Tobacco use
CPT/HCPCS: 36415; 74177; 80053; 81001; 83690; 85025; 99285; Q9967

== ENCOUNTER → 2024-06-04 13:44 | Outpatient (BNVA) | payer OTHER, SELFPAY | PROVIDERS: PCP Family Medicine; Visit Provider Podiatrist Foot & Ankle Surgery | DX: I73.9 Peripheral vascular disease, unspecified (principal); L60.3 Nail dystrophy; G57.63 Lesion of plantar nerve, bilateral lower limbs | CPT/HCPCS: 11721; 99213 ==

== ENCOUNTER → 2024-09-03 13:58 | Outpatient (BNVA) | payer OTHER, SELFPAY | PROVIDERS: PCP Family Medicine; Visit Provider Podiatrist Foot & Ankle Surgery | DX: I73.9 Peripheral vascular disease, unspecified (principal); L60.3 Nail dystrophy | CPT/HCPCS: 11721 ==

== ENCOUNTER → 2024-12-03 09:07 | Outpatient (BNVA) | payer OTHER, SELFPAY | PROVIDERS: PCP Family Medicine; Visit Provider Podiatrist Foot & Ankle Surgery | DX: I73.9 Peripheral vascular disease, unspecified (principal); L60.3 Nail dystrophy; L84 Corns and callosities | CPT/HCPCS: 11056; 11721 ==

== ENCOUNTER → 2025-02-23 08:55 | Outpatient (BNVA) | payer OTHER, SELFPAY | PROVIDERS: PCP Family Medicine; Visit Provider Podiatrist Foot & Ankle Surgery | DX: I73.9 Peripheral vascular disease, unspecified (principal); L60.8 Other nail disorders; L60.3 Nail dystrophy; L84 Corns and callosities | CPT/HCPCS: 11055; 11721 ==